=== PATIENT | female | born 1945 | race Caucasian/White ===

== ENCOUNTER 2020-06-09 19:30 | Emergency (ER) | payer MEDICARE, OTHER ==
[~2020-06-09] VITALS: Ht 160 cm; Wt 74.8 kg
--- OUTSIDE RECORDS SUMMARY | ~2020-06-09 | XMS | Encounter Summary ---
Demographics + + + | Address | [address] | | | [place] [address] | + + + | Home Phone | | + + + | Preferred Language | Unknown | + + + | Marital Status | | + + + | Zoroastrianism Affiliation | Unknown | + + + | Race | White | + + + | Ethnic Group | Unknown | + + + Author + + + | Author | [facility] | | | and [place] | + + + | Organization | [facility] | | | and [place] | + + + | Address | Unknown | + + + | Phone | Unavailable | + + + Support + + + + + | Name | Relationship | Address | Phone | + + + + + | Kelly Sexton | ECON | [address] | | | | | [place] | | | | | [address] | | + + + + + | Angeli Burdick | ECON | [address] | | | | | [place] | | | | | [address] | | + + + + + Care Team Providers + +------+ + | Care Material Crew Supervisor Name | Role | Phone | + +------+ + | Sveta Lawrence MD | PCP | | + +------+ + Reason for Visit + + + | Reason | Comments | + + + | Hypothyroidism | | + + + | Hyperglycemia | | + + + | Hypertension | | + + + Encounter Details +--------+---------+ + + + | Date | Type | Department | Care Team | Description | +--------+---------+ + + + | 07/22/ | Office | [facility] | Sveta Lawrence MD | Acquired | | 2017 | Visit | [facility] | [address] | hypothyroidism | | | | [address] | [place] | (Primary Dx); | | | | [place] | [address] | HYPERTENSION, BENIGN | | | | [address] | | ESSENTIAL; | | | | [phone] | | Hyperglycemia; Mixed | | | | | | hyperlipidemia | +--------+---------+ + + + Social History + +-------+ +--------+------+ | Tobacco Use | Types | Packs/Day | Years | Date | | | | | Used | | + +-------+ +--------+------+ | Never Smoker | | | | | + +-------+ +--------+------+ + +---+---+---+ | Smokeless Tobacco: | | | | | Never Used | | | | + +---+---+---+ + + +---------+ + | Alcohol Use | Drinks/Week | oz/Week | Comments | + + +---------+ + | No | | | | + + +---------+ + + + + | Sex Assigned at | Date Recorded | | | | + + + | Not on file | | + + + documented as of this encounter Last Filed Vital Signs + + + + + | Vital Sign | Reading | Time Taken | Comments | + + + + + | Blood Pressure | 110/86 | 07/22/2017 12:41 PM | | | | | PST | | + + + + + | Pulse | 66 | 07/22/2017 12:41 PM | | | | | PST | | + + + + + | Temperature | 36.8 C (98.2 F) | 07/22/2017 12:41 PM | | | | | PST | | + + + + + | Respiratory Rate | 16 | 07/22/2017 12:41 PM | | | | | PST | | + + + + + | Oxygen Saturation | 96% | 07/22/2017 12:41 PM | | | | | PST | | + + + + + | Inhaled Oxygen | - | - | | | Concentration | | | | + + + + + | Weight | 80.7 kg (178 lb) | 07/22/2017 12:41 PM | | | | | PST | | + + + + + | Height | 160 cm (5' 3") | 07/22/2017 12:41 PM | | | | | PST | | + + + + + | Body Mass Index | 31.53 | 07/22/2017 12:41 PM | | | | | PST | | + + + + + documented in this encounter Patient Instructions Patient Instructions Sveta Lawrence MD - 07/22/2017 1:57 PM PST Your Heart is at Risk Plaque and blood clots in the coronary arteries reduce blood flow to the heart: When a coronary artery narrows, less blood and oxygen flow to the heart muscle. The decr eased blood flow can cause symptoms of angina. This is often felt as temporary pain or press ure in or near the chest. This can also feel like pain in the jaw, neck, and shoulder. When a coronary artery narrows too much, very little blood and oxygen reach the heart mu scle beyond the site of narrowing. If a clot forms, blood flow in the artery may stop. This can result in a heart attack. If the muscle goes without oxygen for too long, that part of t he heart muscle dies. Your whole body is at risk Plaque buildup can lead to problems throughout the body. Common sites of artery problems in clude: Brain. Arteries in the brain or leading to the brain can become blocked. When this happe ns, blood flow to that part of the brain is reduced and that part of the brain can t get t he oxygen it needs. That portion of the brain is damaged. This is a stroke. Kidneys. If an artery that carries blood to the kidneys is narrowed, the kidneys have a hard time filtering blood. This can lead to kidney damage. Aorta. This is the body s main artery. It connects directly to the heart. If this efrain ry is damaged, the affected section can weaken and balloon out. This is called an aortic ane urysm. Legs. If arteries in the legs are clogged with plaque, cramping, or aching in the buttoc ks, thighs, or calves can occur when walking. This is called claudication. Date Last Reviewed: 02/06/[id number] [employer]. [address] [place] [address]. All [facility] ts reserved. This information is not intended as a substitute for professional medical care. Always follow your healthcare professional's instructions. documented in this encounter Progress Notes Sveta Lawrence MD - 07/22/2017 1:00 PM PST Patient ID: Charo Cifuentes is a 71 y.o. female. Charo returns to see me to review lab results today. She is alone today. Chief Complaint Patient presents with Hypothyroidism Hyperglycemia Hypertension HPI: Hypothyroidism: I discontinued her Amour thyroid at the last office visit. We checked her TSH. She is here to follow up on her TSH level. She reports that she continued her Amour Thyroid as well as Levothyroxine until she heard other sarah from me. Her TSH is suppressed at 0.143, we are going to discontinue [place] Thyroid and continue lev othyroxine 75 g daily and repeat the TSH in 2 months. Hyperglycemia: She returns for results of her A1C today, which is 6.7 now on diabetic range, she does not want to take medications and will adjust her diet. Her lipid panel is normal but her calculated cardiovascular risk is high at 14.4% and she d oes not want to start statin medication but rather will bring down her A1c to a nondiabetic range through diet and exercise and decreasing cardiovascular risk that way... HTN: She reports that her blood pressure is usually not that high on the "bottom number" She allen s been sick with a URI recently though. Past Medical History: Diagnosis Date Arthritis Cancer (HCC) 1998 Melanoma Cataract 04/2017 Encounter for blood transfusion 1999 Environmental allergies Gastrointestinal ulcer 1999 GERD (gastroesophageal reflux disease) Glaucoma Hyperlipidemia Hypertension Thyroid disease Past Surgical History: Procedure Laterality Date COLONOSCOPY EYE SURGERY GASTRIC BYPASS SURGERY 1985 SHOULDER SURGERY Left 2014 TONSILLECTOMY TUBAL LIGATION UPPER GASTROINTESTINAL ENDOSCOPY Family History Problem Relation Age of Onset COPD Mother Hearing loss Mother Vision loss Mother Arthritis Father Early Father Heart disease Father Asthma Sister Diabetes Sister High blood pressure Sister High cholesterol Sister Miscarriages / stillbirths Sister Vision loss Sister Depression Brother Diabetes Brother Early Brother Hearing loss Brother Heart disease Brother Premature CHD Brother Social History Social History Marital status: Spouse name: N/A Number of children: N/A Years of education: N/A Social History Main Topics Smoking status: Never Smoker Smokeless tobacco: Never Used Alcohol use No Drug use: No Sexual activity: Not Asked Other Topics Concern None Social History Narrative None Allergies Allergen Reactions Codeine Sulfate Not Noted Hydrocodone Not Noted Sulfa Antibiotics Not Noted Intolerance No active intolerances/contraindications Current Outpatient Prescriptions Medication Sig Dispense Refill Brinzolamide-Brimonidine (SIMBRINZA) 1-0.2 % SUSP Apply to eye. Calcium Carbonate-Vitamin D (CALCIUM + D PO) TABS 1200 mg per day levothyroxine (SYNTHROID) 75 MCG tablet Take 1 tablet by mouth Daily. 90 tablet 2 lisinopril (PRINIVIL,ZESTRIL) 2.5 MG tablet Take 1 tablet by mouth Daily. 90 tablet 3 multivitamin (THERAGRAN) per tablet daily NAPROXEN PO TABS Take/use as needed. omeprazole (PRILOSEC) 20 mg capsule Take 1 capsule by mouth Daily. 90 capsule 3 No current facility-administered medications for this visit. Review of Systems Constitutional: Positive for malaise/fatigue. HENT: Negative. Eyes: Negative. Respiratory: Positive for cough and sputum production. Cardiovascular: Negative. Gastrointestinal: Positive for heartburn. On Prilosec Genitourinary: Negative. Musculoskeletal: Positive for joint pain. Sore from yard work. Skin: Negative. Neurological: Negative. Endo/Heme/Allergies: Negative. Psychiatric/Behavioral: Negative. Objective: BP 110/86 | Pulse 66 | Temp 36.8 C (98.2 F) (Temporal) | Resp 16 | Ht 1.6 m (5' 3") | Wt 80.7 kg (178 lb) | SpO2 96% | ? No | BMI 31.53 kg/m Physical Exam General Appearance: Alert, cooperative, no distress, appears stated age Head: Normocephalic, without obvious abnormality, atraumatic Eyes: PERRL, conjunctiva/corneas clear, EOM's intact Nose: Nares normal, septum midline, mucosa normal, no drainage or sinus tenderness Throat: Lips, mucosa, and tongue normal; teeth and gums normal Neck: Supple, symmetrical, no adenopathy Lungs: No accessory muscle use, breath sounds are clear to auscultation bilaterally, no w heezes, crackles or rhonchi Chest Wall: No tenderness or deformity Heart: Regular rate and rhythm, S1, S2 normal, no murmur, rub or gallop Abdomen: Soft, non-tender Extremities: Extremities normal, atraumatic, no cyanosis, clubbing, or edema Pulses: Radial pulses 2+ and symmetric Skin: Warm and dry Lymph nodes: Cervical and supraclavicular nodes normal Neurologic: Gait normal Assessment/Plan: Acquired hypothyroidism (Primary) Assessment & Plan: Discontinue [place] Thyroid and continue levothyroxine 75 g daily, repeat TSH in 2 months Orders: - TSH; Future; Expected date: 10/22/2017 - TSH; Future; Expected date: 01/19/2018 HYPERTENSION, BENIGN ESSENTIAL Assessment & Plan: Continue lisinopril 2.5 mg and increased exercise Orders: - Comprehensive Metabolic Panel; Future; Expected date: 01/19/2018 - Lipid Panel; Future; Expected date: 01/19/2018 - TSH; Future; Expected date: 01/19/2018 - CBC with Differential; Future; Expected date: 01/19/2018 - Hemoglobin A1C; Future; Expected date: 01/19/2018 Hyperglycemia Assessment & Plan: A1c is now 6.7, will improved diet and exercise and try to decrease the cardiovascular risk by getting into a nondiabetic range. Her lipid panel seems normal as her calculated cardiovascular risk is 14.4% elevated and sh e refuses statin medications at this point. Orders: - Hemoglobin A1C; Future; Expected date: 01/19/2018 Other orders - Levothyroxine Sodium; Take 1 tablet by mouth Daily. Dispense: 90 tablet; Refill: 2 The patient was satisfied with the care received and voiced understanding of the issues dis cussed and the plan. Return in about 6 months (around 01/19/2018) for Diabetes follow up with fasting labs before . documented in this enc ounter Miscellaneous Notes Assessment & Plan Note - Sveta Lawrence MD - 07/22/2017 7:38 PM PSTAssociated Problem(s): [id number] is now 6.7, will improved diet and exercise and try to decrease the cardio vascular risk by getting into a nondiabetic range. Her lipid panel seems normal as her calculated cardiovascular risk is 14.4% elevated and sh e refuses statin medications at this point.Electronically signed by Sveta Lawrence MD at 7:39 PM PSTAssessment & Plan Note - Sveta Lawrence MD - 07/22/2017 7:37 PM PSTAss ociated Problem(s): HYPOTHYROIDISMDiscontinue [place] Thyroid and continue levothyroxine 75 g daily, repeat TSH in 2 months 7: 37 PM PSTAssessment & Plan Note - Sveta Lawrence MD - 07/22/2017 7:37 PM PSTAssociated Pro blem(s): HYPERTENSION, BENIGN ESSENTIALContinue lisinopril 2.5 mg and increased exerciseElec tronically signed by Sveta Lawrence MD at 07/22/2017 7:37 PM PSTdocumented in this encounte r Plan of Treatment + +------+--------+ + + | Name | Type | Priori | Associated Diagnoses | Order Schedule | | | | ty | | | + +------+--------+ + + | TSH | Lab | Routin | Acquired | Expected: | | | | e | hypothyroidism | 10/22/2017, Expires: | | | | | | 07/22/2018 | + +------+--------+ + + | Comprehensive | Lab | Routin | HYPERTENSION, | Expected: | | Metabolic Panel | | e | BENIGN ESSENTIAL | 01/19/2018, Expires: | | | | | | 07/22/2018 | + +------+--------+ + + | Lipid Panel | Lab | Routin | HYPERTENSION, | Expected: | | | | e | BENIGN ESSENTIAL | 01/19/2018, Expires: | | | | | Mixed hyperlipidemia | 07/22/2018 | + +------+--------+ + + | TSH | Lab | Routin | Acquired | Expected: | | | | e | hypothyroidism | 01/19/2018, Expires: | | | | | HYPERTENSION, BENIGN | 07/22/2018 | | | | | ESSENTIAL | | + +------+--------+ + + | CBC with | Lab | Routin | HYPERTENSION, | Expected: | | Differential | | e | BENIGN ESSENTIAL | 01/19/2018, Expires: | | | | | | 07/22/2018 | + +------+--------+ + + | Hemoglobin A1C | Lab | Routin | HYPERTENSION, | Expected: | | | | e | BENIGN ESSENTIAL | 01/19/2018, Expires: | | | | | Hyperglycemia | 07/22/2018 | + +------+--------+ + + documented as of this encounter Procedures + +--------+ + + + | Procedure Name | Priori | Date/Time | Associated Diagnosis | Comments | | | ty | | | | + +--------+ + + + | IMAGING REPORT - | | 07/20/2017 | | Results for this | | EXTERNAL SCAN | | 12:00 AM | | procedure are in the | | | | PST | | results section. | + +--------+ + + + | LABS - EXTERNAL SCAN | | 06/26/2017 | | Results for this | | | | 12:00 AM | | procedure are in the | | | | PDT | | results section. | + +--------+ + + + documented in this encounter Results IMAGING REPORT - EXTERNAL SCAN (07/20/2017 12:00 AM PST) + + + | Narrative | Performed At | + + + | Ordered by an | | | unspecified provider. | | + + + LABS - EXTERNAL SCAN (06/26/2017 12:00 AM PDT) + + + | Narrative | Performed At | + + + | Ordered by an | | | unspecified provider. | | + + + documented in this encounter Visit Diagnoses + + | Diagnosis | + + | Acquired hypothyroidism - Primary Unspecified hypothyroidism | + + | HYPERTENSION, BENIGN ESSENTIAL Essential hypertension, benign | + + | Hyperglycemia Other abnormal glucose | + + | Mixed hyperlipidemia | + + documented in this encounter
--- OUTSIDE RECORDS SUMMARY | ~2020-06-09 | XMS | Encounter Summary ---
Demographics + + + | Address | [address] | | | [place] [address] | + + + | Home Phone | | + + + | Preferred Language | Unknown | + + + | Marital Status | | + + + | Amish Affiliation | Unknown | + + + | Race | White | + + + | Ethnic Group | Unknown | + + + Author + + + | Author | [facility] | | | and [place] | + + + | Organization | [facility] | | | and [...] [place] | | | | | [address] | | + + + + + | Angeli Burdick | ECON | [address] | | | | | [place] | | | | | [address] | | + + + + + Care Team Providers + +------+ + | Care Assistant Product Manager Name | Role | Phone | + +------+ + PCP | Unavailable | + +------+ + Encounter Details +--------+ + + + + | Date | Type | Department | Care Team | Description | +--------+ + + + + | 04/08/ | Hospital | [facility] | | | | 2000 | Encounter | [facility] | | | | | | CONV DEPT [address] | | | | | | [place], | | | | | | [place] [address] | | | | | | [phone] | | | +--------+ + + + + Social History + +-------+ +--------+------+ | Tobacco Use | Types | Packs/Day | Years | Date | | | | | Used | | + +-------+ +--------+------+ | Never Assessed | | | | | + +-------+ +--------+------+ + + + | Sex Assigned at | Date Recorded | | | | + + + | Not on file | | + + + documented as of this encounter Plan of Treatment Not on filedocumented as of this encounter Visit Diagnoses Not on filedocumented in this encounter"
--- OUTSIDE RECORDS SUMMARY | ~2020-06-09 | XMS | Clinical Summary ---
Demographics + + + | Address | [address] | | | [place] [address] | + + + | Home Phone | | + + + | Preferred Language | Unknown | + + + | Marital Status | Single | + + + | Quaker Affiliation | Unknown | + + + | Race | Unknown | + + + | Ethnic Group | Not or | + + + Author + + + | Organization | Unknown | + + + | Address | Unknown | + + + | Phone | Unavailable | + + + Support + + +---------+ + | Name | Relationship | Address | Phone | + + +---------+ + | Fahad Lopez | ECON | Unknown | | + + +---------+ + Care Team Providers + +------+ + | Care Wire Preparation Worker Name | Role | Phone | + +------+ + PCP | Unavailable | + +------+ + Source Comments MARCUS is fully live on both [facility] and [facility] Allergies Not on File Medications Not on file Active Problems Not on file Social History + +-------+ +--------+------+ | Tobacco [...] on file | | + + + Last Filed Vital Signs Not on file Plan of Treatment + + +-------+ + | Health Maintenance | Due Date | Last | Comments | | | | Done | | + + +-------+ + | Pneumococcal | | | | | vaccination (1 of 1 | 0 | | | | - PPSV23) | | | | + + +-------+ + | Influenza (Flu) | | | | | vaccination (#1) | 0 | | | + + +-------+ + Results Not on filefrom Last 3 Months"
--- OUTSIDE RECORDS SUMMARY | ~2020-06-09 | XMS | Encounter Summary ---
Demographics + + + | Address | [address] | | | [place] [address] | + + + | Home Phone | | + + + | Preferred Language | Unknown | + + + | Marital Status | | + + + | Muslim Affiliation | Unknown | + + + | Race | White | + + + | Ethnic Group | Unknown | + + + Author + + + | Author | [facility] | | | and [place] | + + + | Organization | [facility] | | | [...] [place] | | | | | [address] | | + + + + + | Angeli Burdick | ECON | [address] | | | | | [place] | | | | | [address] | | + + + + + Care Team Providers + +------+ + | Care Application Systems Administrator Name | Role | Phone | + +------+ + | Sveta Lawrence MD | PCP | | + +------+ + Reason for Visit + +--------+ + | Reason | Onset | Comments | | | Date | | + +--------+ + | Procedure | 10/26/ | colon/ivcs | | | 2017 | | + +--------+ + Encounter Details +--------+ + + + + | Date | Type | Department | Care Team | Description | +--------+ + + + + | 10/26/ | Telephone | [facility] | Kye Rangel | Procedure | | 2017 | | GASTROENTEROLOGY | [place] [address] | (colon/ivcs) | | | | [address] [place] | [address] [facility] | | | | | [address] [place] | [place] [address] | | | | | [address] | [phone] | | | | | [phone] | | | +--------+ + + + [...] + + documented as of this encounter Miscellaneous Notes Telephone Encounter - Babs Dumont RN - 10/26/2017 11:19 AM PSTOrdered bowel prep and created case. Last screening in [address] Menjivar with hx of small polyp.Electro nically signed by Babs Dumont RN at 10/26/2017 11:20 AM PSTTelephone Encounter - Nalini [facility] [employer] - 10/26/2017 10:06 AM PSTScheduled patient for colonoscopy/ i vcs with Dr. Burk on 11/23/2017 with a check in time of 8 am. Reviewed medication stated to pt no NSAID's 3 days prior to procedure ,(if you need to take morning medication such as bl ood pressure medication, with a small sip of water a soon as possible the morning of the pro cedure); surg hx and allergies; reviewed bowel prep depending on insurance Suprep bottle kit starting the day before the first bottle at 4 pm and second bottle at 9 pm. Golytely bottle prep drink all the day before starting at 4pm. Nothing to drink 4 hours prior to appointmen t; rx to [facility]; info mailed to pt; patient verbalized understanding; notes to NAOMY. Hx of small polyps 10 :09 AM PSTdocumented in this encounter Plan of Treatment Not on filedocumented as of this encounter Visit Diagnoses + + | Diagnosis | + + | Hx of colonic polyps - Primary Personal history of colonic polyps | + + documented in this encounter"
--- OUTSIDE RECORDS SUMMARY | ~2020-06-09 | XMS | Clinical Summary ---
Demographics + + + | Address | [address] | | | [place] [address] | + + + | Home Phone | | + + + | Preferred Language | Unknown | + + + | Marital Status | | + + + | Advent Affiliation | Unknown | + + + | Race | White | + + + | Ethnic Group | Unknown | + + + Author + + + | Author | [facility] | | | and [place] | + + + | Organization | [facility] | | | [...] [place] | | | | | [address] | | + + + + + | Angeli Burdick | ECON | [address] | | | | | [place] | | | | | [address] | | + + + + + Care Team Providers + +------+ + | Care Reference And Instruction Librarian Name | Role | Phone | + +------+ + | Sveta Lawrence MD | PCP | | + +------+ + Allergies + + + + + + | Active Allergy | Reactions | Severity | Noted | Comments | | | | | Date | | + + + + + + | Codeine Sulfate | Other (See Comments) | Low | 03/05/20 | Makes me angry, | | | | | 10 | | + + + + + + | Hydrocodone | Other (See Comments) | Low | | Made me angry. | + + + + + + | Sulfa Antibiotics | Shortness Of Breath, | High | 03/05/20 | Had a rash on | | | Rash | | 10 | chest, and | | | | | | difficulty | | | | | | breathing. | + + + + + + Medications + + + +---------+------+------+-------+ | Medication | Sig | Dispensed | Refills | Star | End | Statu | | | | | | t | Date | s | | | | | | Date | | | + + + +---------+------+------+-------+ | NAPROXEN PO | TABS Take/use as | | 0 | 09/1 | | Activ | | | needed. | | | 2/20 | | e | | | | | | 12 | | | + + + +---------+------+------+-------+ | Calcium | TABS 1200 mg per | | 0 | 09/1 | | Activ | | Carbonate-Vitamin D | day | | | 2/20 | | e | | (CALCIUM + D PO) | | | | 12 | | | + + + +---------+------+------+-------+ | multivitamin | daily | | 0 | 09/1 | | Activ | | (THERAGRAN) per | | | | 2/20 | | e | | tablet | | | | 12 | | | + + + +---------+------+------+-------+ | | Apply to eye. | | 0 | | | Activ | | Brinzolamide-Brimoni | | | | | | e | | dine (SIMBRINZA) | | | | | | | | 1-0.2 % SUSP | | | | | | | + + + +---------+------+------+-------+ | Cobalamine | Place under the | | 0 | | | Activ | | Combinations (B-12) | tongue Daily. | | | | | e | | 1000-400 MCG SUBL | | | | | | | + + + +---------+------+------+-------+ | oxybutynin | TAKE 1 TABLET BY | 30 | 2 | 08/07 | | Activ | | (DITROPAN XL) 5 mg | MOUTH ONCE DAILY | tablet | | 8/20 | | e | | 24 hr tablet | | | | 18 | | | + + + +---------+------+------+-------+ | omeprazole | TAKE ONE CAPSULE BY | 90 | 1 | 12/2 | | Activ | | (PRILOSEC) 20 mg | MOUTH ONCE DAILY | capsule | | 1/20 | | e | | capsule | | | | 18 | | | + + + +---------+------+------+-------+ | levothyroxine | TAKE 1 TABLET BY | 90 | 0 | 08/2 | | Activ | | (SYNTHROID) 100 mcg | MOUTH IN THE MORNING | tablet | | 0/20 | | e | | tablet | BEFORE BREAKFAST | | | 19 | | | + + + +---------+------+------+-------+ | omeprazole | TAKE 1 CAPSULE BY | 90 | 3 | 09/1 | | Activ | | (PRILOSEC) 20 mg | MOUTH ONCE DAILY | capsule | | 7/20 | | e | | capsule | | | | 19 | | | + + + +---------+------+------+-------+ | lisinopril | TAKE 1 TABLET BY | 30 | 0 | 10/ | | Activ | | (PRINIVIL,ZESTRIL) | MOUTH ONCE DAILY | tablet | | 10/27 | | e | | 2.5 MG tablet | | | | 19 | | | + + + +---------+------+------+-------+ Active Problems + + + | Problem | Noted Date | + + + | Physician orders for life-sustaining treatment (POLST) form | 01/19/2018 | | indicates patient wish for lz-awj-dprjcpuyavb status | | + + + | Urinary urgency | 01/19/2018 | + + + + + | Last Assessment & Plan: Did not sampler pickup Myrbetriq 25 mg due | | to it being so expensive.We will give you an prescription for | | Oxybutynin 5 mg tablets. If this is too expensive then you do not | | have to pick it up. | + + + + + | Hyperlipidemia | 01/19/2018 | + + + + + | Last Assessment & Plan: Requested fasting lipid panel from | | laboratory in [place] | + + + + + | Hyperglycemia | 06/25/2017 | + + + + + | Last Assessment & Plan: Need A1c to follow-up and she used to | | have an elevated cardiovascular risk of 14.4 in July 2017 | | when need to follow-up on this | + + + + + | Bariatric surgery status | 06/25/2017 | + + + | HYPERTENSION, BENIGN ESSENTIAL | 2010 | + + + + + | Last Assessment & Plan: Well controlled on lisinopril to 2.5 | | mg, low salt diet and exercise | + + + + + | HYPOTHYROIDISM | 2010 | + + + + + | Last Assessment & Plan: We will continue the levothyroxine | | 100 mcg since this seems to be keeping TSH under control.Lab work | | reviewed today.-Thyroid levels are stable. -Plan on yearly TSH | | labs-Continue your current dose of levothyroxine | |-Thyroid levels are stable. | |-Plan on yearly TSH labs | |-Continue your current dose of levothyroxine | + + + + + | G E R D | 2010 | + + + | ANEMIA, IRON DEFICIENCY | | + + + Immunizations + + + + | Name | Administration Dates | Next Due | + + + + | INFLUENZA 64 Y OR >, | 06/25/2017 | | | TRIVALENT HIGH-DOSE | | | + + + + | PNEUMOCOCCAL | 07/30/2015 | | | CONJUGATE 13-VALENT | | | | (PCV13) | | | + + + + | PNEUMOCOCCAL | 06/25/2017 | | | POLYSACCHARIDE | | | | 23-VALENT (PPSV23) | | | + + + + | TDAP, (ADOL/ADULT) | 10/11/2015 | | + + + + | ZOSTER, 1 DOSE | 06/14/2013 | | | (ZOSTAVAX) | | | + + + + Family History + + +------+ + | Medical History | Relation | Name | Comments | + + +------+ + | Depression | Brother | | | + + +------+ + | Diabetes | Brother | | | + + +------+ + | Early | Brother | | | + + +------+ + | Hearing loss | Brother | | | + + +------+ + | Heart disease | Brother | | | + + +------+ + | Premature CHD | Brother | | | + + +------+ + | Arthritis | Father | | | + + +------+ + | Early | Father | | | + + +------+ + | Heart disease | Father | | | + + +------+ + | COPD | Mother | | | + + +------+ + | Hearing loss | Mother | | | + + +------+ + | Vision loss | Mother | | | + + +------+ + | Asthma | Sister | | | + + +------+ + | Diabetes | Sister | | | + + +------+ + | High blood pressure | Sister | | | + + +------+ + | High cholesterol | Sister | | | + + +------+ + | Miscarriages / | Sister | | | | stillbirths | | | | + + +------+ + | Vision loss | Sister | | | + + +------+ + + +------+ + + | Relation | Name | Status | Comments | + +------+ + + | Brother | | | | + +------+ + + | Father | | | | + +------+ + + | Mother | | | | + +------+ + + | Sister | | Alive | | + +------+ + + Social History + +-------+ +--------+------+ [...] + + + Last Filed Vital Signs + + + + + | Vital Sign | Reading | Time Taken | Comments | + + + + + | Blood Pressure | 130/86 | 04/26/2018 3:02 PM | | | | | PDT | | + + + + + | Pulse | 60 | 04/26/2018 3:02 PM | | | | | PDT | | + + + + + | Temperature | 36.5 C (97.7 F) | 04/26/2018 3:02 PM | | | | | PDT | | + + + + + | Respiratory Rate | 18 | 04/26/2018 3:02 PM | | | | | PDT | | + + + + + | Oxygen Saturation | 99% | 04/26/2018 3:02 PM | | | | | PDT | | + + + + + | Inhaled Oxygen | - | - | | | Concentration | | | | + + + + + | Weight | 75.8 kg (167 lb) | 04/26/2018 3:02 PM | | | | | PDT | | + + + + + | Height | 160 cm (5' 3") | 01/19/2018 7:51 AM | | | | | PDT | | + + + + + | Body Mass Index | 29.58 | 01/19/2018 7:51 AM | | | | | PDT | | + + + + + Plan of Treatment + + + + + | Health Maintenance | Due Date | Last | Comments | | | | Done | | + + + + + | Medication | | | | | Management | 5 | | | + + + + + | Vaccine: Zoster (2 | | 06/14/20 | | | of 3) | 3 | 13 | | + + + + + | Adult Annual | | | | | Wellness Visit | 5 | | | + + + + + | Med Mgmt: Cr | | 04/22/20 | | | | 9 | 18, | | | | | 04/22/20 | | | | | 18, | | | | | 06/26/20 | | | | | 17 | | + + + + + | Med Mgmt: K | | 04/22/20 | | | | 9 | 18, | | | | | 04/22/20 | | | | | 18, | | | | | 06/26/20 | | | | | 17 | | + + + + + | Med Mgmt: TSH | | 04/22/20 | | | | 9 | 18, | | | | | 01/19/20 | | | | | 18 | | + + + + + | Breast Cancer | | 07/20/20 | | | Screening | 9 | 17, | | | | | 12/07/19 | | | | | 11 | | + + + + + | Vaccine: Influenza | | 06/25/20 | | | (#1) | 0 | 17 | | + + + + + | Vaccine: | | 10/11/19 | | | Dtap/Tdap/Td (2 - | 6 | 16 | | | Td) | | | | + + + + + | Colorectal Cancer | | 11/24/19 | | | Screening | 8 | 18, | | | (Colonoscopy) | | 11/24/19 | | | | | 18, | | | | | 10/12/19 | | | | | 08 | | + + + + + | Vaccine: | Completed | 06/25/20 | | | Pneumococcal 65+ | | 17, | | | | | 07/30/20 | | | | | 15 | | + + + + + | Hepatitis C | Completed | 04/22/20 | | | Screening | | 18 | | + + + + + Results Not on filefrom Last 3 Months Insurance + +--------+ +--------+ +---------+--------+ | Payer | Benefi | Subscriber | Effect | Phone | Address | Type | | | t Plan | ID | enrico | | | | | | / | | Dates | | | | | | Group | | | | | | + +--------+ +--------+ +---------+--------+ | MEDICARE | MEDICA | [id number] | 01/06/20 | [phone] | | Medica | | | RE | | 16-Pre | 5 | | re | | | PART A | | sent | | | | | | AND B | | | | | | + +--------+ +--------+ +---------+--------+ | [employer] [place] [employer] | MUTUAL | [id number] | 01/06/20 | [phone] | | Indemn | | | AND | | 16-Pre | 0 | | ity | | | [place] | | sent | | | | | | [place] | | | | | | | | MDCR | | | | | | | | SUPPL | | | | | | + +--------+ +--------+ +---------+--------+ + +--------+ +--------+ + + | Guarantor Name | Accoun | Relation to | Date | Phone | Billing Address | | | t Type | Patient | of | | | | | | | | | | + +--------+ +--------+ + + | Charo Cifuentes | Person | Self [birth year] | [address] | | | al/Fam | | 1946 | [phone] | [place] | | | brii | | | 4 (Home) | [phone] | + +--------+ +--------+ + + Advance Directives + + + + + | Type | Date Recorded | Patient | Explanation | | | | Business Loan Processor | | + + + + + | Power of | | | | | Specialty Sales Consultant | | | | + + + + + | Advance | 11/23/2017 8:01 | | | | Directive | AM | | | + + + + +
--- OUTSIDE RECORDS SUMMARY | ~2020-06-09 | XMS | Encounter Summary ---
Demographics + + + | Address | [address] | | | [place] [address] | + + + | Home Phone | | + + + | Preferred Language | Unknown | + + + | Marital Status | | + + + | Hinduism Affiliation | Unknown | + + + | Race | White | + + + | Ethnic Group | Unknown | + + + Author + + + | Author | [facility] | | | and [place] | + + + | Organization | [facility] | | [...] [place] | | | | | [address] | | + + + + + | Angeli Burdick | ECON | [address] | | | | | [place] | | | | | [address] | | + + + + + Care Team Providers + +------+ + | Care Supervisor Shipping Name | Role | Phone | + +------+ + | Sveta Lawrence MD | PCP | | + +------+ + Reason for Visit +--------+--------+ + | Reason | Onset | Comments | | | Date | | +--------+--------+ + | LABS | 04/14/ | Needs labs before OV | | | 2018 | | +--------+--------+ + Encounter Details +--------+ + + + + | Date | Type | Department | Care Team | Description | +--------+ + + + + | 04/14/ | Telephone | [facility] | Sveta Lawrence MD | LABS (Needs labs | | 2017 | | MEDIC[facility] [place] | [address] | before OV) | | | | [address] | [place] | | | | | [place] | [address] | | | | | [address] | | | | | | [phone] | | | +--------+ + + + [...] this encounter Miscellaneous Notes Telephone Encounter - Rose Marie Cortes RN - 04/14/2018 9:30 AM PDTCalled patient an d LVM to get fasting labs done before we see her next week on 04/22/18. Stated that we need the labs done by 04/21/18. Stated to call back with any questions. And stated to let us know if we need to fax the lab s to [facility] in [place] for her as well. If she calls back please fax the lab orders from July and today to [facility] to be comp leted by the patient before her upcoming appt next week. documented in this encounter Plan of Treatment +------+------+--------+ + + | Name | Type | Priori | Associated Diagnoses | Order Schedule | | | | ty | | | +------+------+--------+ + + | TSH | Lab | Routin | Acquired | 1 Occurrences | | | | e | hypothyroidism | starting 04/14/2018 | | | | | | until 04/14/2019 | +------+------+--------+ + + documented as of this encounter Visit Diagnoses + + | Diagnosis | + + | Acquired hypothyroidism - Primary Unspecified hypothyroidism | + + documented in this encounter"
--- OUTSIDE RECORDS SUMMARY | ~2020-06-09 | XMS | Encounter Summary ---
Demographics + + + | Address | [address] | | | [place] [address] | + + + | Home Phone | | + + + | Preferred Language | Unknown | + + + | Marital Status | | + + + | Latter-Day Affiliation | Unknown | + + + | Race | White | + + + | Ethnic Group | Unknown | + + + Author + + + | Author | [facility] | | | and [place] | + + + | Organization | [facility] | | | [...] [place] | | | | | [address] | | + + + + + | Angeli Burdick | ECON | [address] | | | | | [place] | | | | | [address] | | + + + + + Care Team Providers + +------+ + | Care Dynamics Ax Technical Architect Name | Role | Phone | + +------+ + PCP | Unavailable | + +------+ + Encounter Details +--------+ + + + + | Date | Type | Department | Care Team | Description | +--------+ + + + + | 07/20/ | Hospital | [facility] | | | | 2006 | Encounter | [facility] | | | | | | [address] | | | | | | [place] | | | | | | [address] | | | | | | [phone] | | | +--------+ + + + [...]
--- OUTSIDE RECORDS SUMMARY | ~2020-06-09 | XMS | Encounter Summary ---
Demographics + + + | Address | [address] | | | [place] [address] | + + + | Home Phone | | + + + | Preferred Language | Unknown | + + + | Marital Status | | + + + | Voodoo Affiliation | Unknown | + + + | Race | White | + + + | Ethnic Group | Unknown | + + + Author + + + | Author | [facility] | | | and [place] | + + + | Organization | [facility] | | | [...] [place] | | | | | [address] | | + + + + + | Angeli Burdick | ECON | [address] | | | | | [place] | | | | | [address] | | + + + + + Care Team Providers + +------+ + | Care Tea Room Manager Name | Role | Phone | + +------+ + | Sveta Lawrence MD | PCP | | + +------+ + Reason for Visit + + + | Reason | Comments | + + + | Medication Refill | | + + + Encounter Details +--------+--------+ + + + | Date | Type | Department | Care Team | Description | +--------+--------+ + + + | 08/27/ | Refill | [facility] | Sveta Lawrence MD | Medication Refill | | 2018 | | MEDIC[facility] [place] | [address] | | | | | [address] | [place] | | | | | [place] | [address] | | | | | [address] | | | | | | [phone] | | | +--------+--------+ + + + Social History + +-------+ [...]
--- OUTSIDE RECORDS SUMMARY | ~2020-06-09 | XMS | Encounter Summary ---
Demographics + + + | Address | [address] | | | [place] [address] | + + + | Home Phone | | + + + | Preferred Language | Unknown | + + + | Marital Status | | + + + | Jehovah'S Witness Affiliation | Unknown | + + + | Race | White | + + + | Ethnic Group | Unknown | + + + Author + + + | Author | [facility] | | | and [place] | + + + | Organization | [facility] | | [...] [place] | | | | | [address] | | + + + + + | Angeli Burdick | ECON | [address] | | | | | [place] | | | | | [address] | | + + + + + Care Team Providers + +------+ + | Care Mop Maker Name | Role | Phone | + [...] Description | +--------+--------+ + + + | 04/26/ | Refill | [facility] | Sveta Lawrence MD | Medication Refill | | 2019 | | [facility]IC[facility] [place] | [address] | | | | | [address] | [place] | | | | | [place] | [address] | | | | | [address] | | | | | | [phone] | | | +--------+--------+ + + + [...]
--- OUTSIDE RECORDS SUMMARY | ~2020-06-09 | XMS | Encounter Summary ---
Demographics + + + | Address | [address] | | | [place] [address] | + + + | Home Phone | | + + + | Preferred Language | Unknown | + + + | Marital Status | | + + + | Mormonism Affiliation | Unknown | + + + | Race | White | + + + | Ethnic Group | Unknown | + + + Author + + + | Author | [facility] | | | and [place] | + + + | Organization | [facility] | | | and [...] [place] | | | | | [address] | | + + + + + | Angeli Burdick | ECON | [address] | | | | | [place] | | | | | [address] | | + + + + + Care Team Providers + +------+ + | Care Phone Operator Name | Role | Phone | + +------+ + | Sveta Lawrence MD | PCP | | + +------+ + Reason for Visit + + + | Reason | Comments | + + + | Diabetes | | + + + | Hypertension | | + + + | Thyroid Problem | | + + + Encounter Details +--------+---------+ + + + | Date | Type | Department | Care Team | Description | +--------+---------+ + + + | 01/19/ | Office | [facility] | Sveta Lawrence MD | Acquired | | 2018 | Visit | [facility] [place] | [address] | hypothyroidism | | | | [address] | [place] | (Primary Dx); | | | | [place] | [address] | HYPERTENSION, BENIGN | | | | [address] | | ESSENTIAL; | | | | [phone] | | Hyperglycemia; Need | | | | | | for hepatitis C | | | | | | screening test; | | | | | | Physician orders for | | | | | | life-sustaining | | | | | | treatment (POLST) | | | | | | form indicates | | | | | | patient wish for | | | | | | [id number] | | | | | | status; Urinary | | | | | | urgency; Mixed | | | | | | [...] + + + | Blood Pressure | 134/70 | 01/19/2018 7:51 AM | | | | | PDT | | + + + + + | Pulse | 63 | 01/19/2018 7:51 AM | | | | | PDT | | + + + + + | Temperature | 36.6 C (97.8 F) | 01/19/2018 7:51 AM | | | | | PDT | | + + + + + | Respiratory Rate | 20 | 01/19/2018 7:51 AM | | | | | PDT | | + + + + + | Oxygen Saturation | 99% | 01/19/2018 7:51 AM | | | | | PDT | | + + + + + | Inhaled Oxygen | - | - | | | Concentration | | | | + + + + + | Weight | 81.3 kg (179 lb 3.2 | 01/19/2018 7:51 AM | | | | oz) | PDT | | + + + + + | Height | 160 cm (5' 3") | 01/19/2018 7:51 AM | | | | | PDT | | + + + + + | Body Mass Index | 31.74 | 01/19/2018 7:51 AM | | | | | PDT | | + + + + + documented in this encounter Patient Instructions Patient Instructions Sveta Lawrence MD - 01/19/2018 8:24 AM PDTFormatting of this note mi ght be different from the original. Follow up in 3 months for thyroid. We are faxing fasting labs to [facility] today to have completed at your earliest convenienc e. We are giving you, in hand, the TSH order to complete in three months. Overactive Bladder Syndrome (OAB) Normally, urine stays in the bladder until a person decides to release it. With OAB, the bl adder muscles contract involuntarily, causing a sudden urge to urinate and even urine leakag e. When the bladder muscle contract or squeeze involuntarily, it is called overactive bladder syndrome. This causes an intense urge to urinate, known as urgency. Urgency can occur many t imes during the day and night. If urine leaks with the urgency, it is called urge incontinen ce. A disease that affects the bladder nerves, such as multiple sclerosis, can cause overactive bladder syndrome. Other conditions, such as urinary tract infection (UTI) or prostate probl ems in men, can also lead to OAB. But the exact cause is often not known. How is overactive bladder syndrome diagnosed? Your healthcare provider will examine you and ask about your symptoms and health history. Y ou may also have one or more of the following: Urine testto take samples of urine and have them checked for problems. Urinary diaryto record how much fluid you take in and urinate out in a3 day period. Bladder ultrasoundto study the bladder as it empties. Ultrasound uses sound waves to c reate detailed images of the inside of the body. Cystoscopyto allow the healthcare provider to look for problems in the urinary tract. The test uses a thin, flexible scope called a cystoscope with a light and camera on the end. The scope is inserted into the urethra (the tube that carries urine out of the body). Urodynamic studies, a battery of tests designed to measure and record many aspects of ur inary bladder function, including pressures, volume, and urine flow. How is overactive bladder syndrome treated? Treatment depends on the cause and severity of your OAB. Treatments may include the followi ng: Changing urination habitsmay be suggested. For instance, your healthcare provider may suggest that you urinate as soon as you feel the urge. You may also need to limit how much f luid you have during the day. Exercising your pelvic musclescan help strengthen muscles used during urination. These exercises are called Kegels. They involve simone as if you were stopping your urine st ream and tightening your rectum as if trying not to pass gas. Your healthcare provider can h elp you learn how to do Kegels. Biofeedbackto help you learn to control the movement of your bladder muscles. Sensors are placed on your abdomen. They turn signals given off by your muscles into lines on a comp uter screen. Medicine may be given to relax the bladder muscle. Medicine can also help ease bladder c ontractions, which reduces the urge to urinate. Neuromodulationmay be done if medicine and behavioral changes don t work. Electrical pulses are sent to the sacral nerves (nerves that affect the pelvic area). These pulses hel p relieve OAB and urge incontinence. Surgeryto make the bladder larger may be done in severe cases. With treatment, OAB can be managed. A condition, such as UTI, that has caused you to have O AB will be treated. Treatment may involve taking medicine for months or years. You may also need to make changes in your daily routine. This may include going to the bathroom more ofte n than you think you need to. Or, you may need to cut back on caffeine and alcohol because t hese can make symptoms worse. Your healthcare provider can tell you more. When to call your healthcare provider Call the healthcare provider right away if you have any of the following: Fever of100.4F(38.0 C) or higher No improvement with treatment Trouble urinating because of pain Back or abdominal pain Date Last Reviewed: 09/07/201619992155-4068 [employer]. [address] [place] [address]. All righ ts reserved. This information is not intended as a substitute for professional medical care. Always follow your healthcare professional's instructions. documented in this encounter Progress Notes Sveta Lawrence MD - 01/19/2018 7:45 AM PDT Subjective: Patient ID: Charo Cifuentes is a 72 y.o. female. Chief Complaint Patient presents with Diabetes Hypertension Thyroid Problem HPI Diabetes Management: Patient presents today for her diabetic follow up. She is a never tobacco user. She does have lab work at [facility] in [place], and we did not receive results, except TS H. Medication management below; Patient is not on any medication at this time, she is currently controlling it with diet an d exercise. Her last diabetic eye exam was completed 2017. She is due for another exam 2018. She will have open angle glaucoma surgery in [facility] [place], scheduled ar ound first week in February. Physician at [facility] completes her diabetic eye exams. Home FBG testing: no. How many times a day? Does not check The patient is not for a dental cleaning. Today she reports feeling well over-all. Hypoglycemic symptoms: Denies sweats, nausea, confusion, and weakness. Hyperglycemic symptoms: Denies polyuria, polydipsia, and blurred vision. No infections, ulcerations, or sores. Following her diabetic diet and understands dietary principles. Exercises not at this time, patient does walk. Body mass index is 31.74 kg/m. Wt Readings from Last 3 Encounters: 01/19/18 81.3 kg (179 lb 3.2 oz) 11/23/17 78.7 kg (173 lb 8 oz) 07/22/17 80.7 kg (178 lb) BP: 134/70 The patients last A1C is pending. Lab Results Component Value Date HBA1C 6.7 06/26/2017 No results found for: CHOL No results found for: HDL No results found for: LDL No results found for: LDLDIRECT No results found for: TRIG No results found for: CHOLHDL No results found for: TSH CMP-WNL except elevated glucose of No results found for: GLU Albumin/ Creatinine ratio- No results found for: MALBCRERATIO Hypertension: Control and Compliance Medication compliance: good Home Blood Pressures: no Exercise: patient is walking about 3 days a week BP: 134/70 BP Readings from Last 3 Encounters: 01/19/18 134/70 11/23/17 112/75 07/22/17 110/86 Pt denies: No headache, visual symptoms, neurologic problems, syncope No chest pain, palpitations, [place], orthopnea, PND, peripheral edema No side effects from any antihypertensive medications Current antihypertensive medications Disp Refills Start End lisinopril (PRINIVIL,ZESTRIL) 2.5 MG tablet (Taking) 90 tablet 3 06/25/2017 Sig - Route: Take 1 tablet by mouth Daily. - Oral Hypothyroidism Pt has hypothyroidism. Taking medications regularly. Pt denies intolerance to temp, tremo r, skin or hair changes, and proximal muscle weakness. Compliance with taking medication is good. Denies side effects. Levothyroxine 88mcg; her TSH is 4.93; will adjust her levothyroxine to 100 g today and re peat test and follow-up in 3 months C/O urinary symptoms: Patient reports she is feeling very healthy and well except having urinary urgency, no stre ss incontinence but just a feeling of having to urinate urgently or else she may wet herself Past Medical History: Diagnosis Date Arthritis Cancer (HCC) 1998 Melanoma Cataract 04/2017 Encounter for blood transfusion 1999 Environmental allergies Gastrointestinal ulcer 1999 GERD (gastroesophageal reflux disease) Glaucoma Hyperlipidemia Hypertension Thyroid disease Past Surgical History: Procedure Laterality Date COLONOSCOPY N/A 11/23/2017 Procedure: COLONOSCOPY; Surgeon: Kye Rangel MD; Location: [facility] UNIT EYE SURGERY GASTRIC BYPASS SURGERY 1985 SHOULDER [...] Social History Narrative None Allergies Allergen Reactions Sulfa Antibiotics Shortness Of Breath,Rash Had a rash on chest, and difficulty breathing. Intolerance Allergen Reactions Codeine Sulfate Other (See Comments) Makes me angry, Hydrocodone Other (See Comments) Made me angry. Current Outpatient Prescriptions Medication Sig Dispense Refill Brinzolamide-Brimonidine (SIMBRINZA) 1-0.2 % SUSP Apply to eye. Calcium Carbonate-Vitamin D (CALCIUM + D PO) TABS 1200 mg per day Cobalamine Combinations (B-12) 1000-[address] under the tongue Daily. levothyroxine (SYNTHROID) 100 mcg tablet Take 1 tablet by mouth every morning (before b reakfast). 90 tablet 0 lisinopril (PRINIVIL,ZESTRIL) 2.5 MG tablet Take 1 tablet by mouth Daily. 90 tablet 3 mirabegron (MYRBETRIQ) 25 mg ER tablet Take 1 tablet by mouth Daily. 30 tablet 5 multivitamin (THERAGRAN) per tablet daily NAPROXEN PO TABS Take/use as needed. omeprazole (PRILOSEC) 20 mg capsule Take 1 capsule by mouth Daily. 90 capsule 3 No current facility-administered medications for this visit. Review of Systems Constitutional: Negative. Negative for fever and malaise/fatigue. HENT: Negative. Negative for congestion, sore throat and tinnitus. Eyes: Negative. Negative for blurred vision and pain. Respiratory: Negative. Negative for cough and shortness of breath. Cardiovascular: Negative. Negative for chest pain, palpitations and leg swelling. Gastrointestinal: Positive for heartburn. Negative for abdominal pain, constipation, diarrh ea, nausea and vomiting. Genitourinary: Negative. Negative for dysuria. Musculoskeletal: Negative. Negative for back pain, joint pain and myalgias. Skin: Negative. Negative for rash. Neurological: Negative. Negative for dizziness, tingling, weakness and headaches. Psychiatric/Behavioral: Negative. Negative for depression. The patient is not nervous/anxi ous and does not have insomnia. Objective: BP 134/70 | Pulse 63 | Temp 36.6 C (97.8 F) (Temporal) | Resp 20 | Ht 1.6 m (5' 3") | Wt 81.3 kg (179 lb 3.2 oz) | SpO2 99% | ? No | BMI 31.74 kg/m Physical Exam General Appearance: Alert, cooperative, [...] supraclavicular nodes normal Neurologic: Gait normal Assessment/Plan: 1. Acquired hypothyroidism (Primary) Assessment & Plan: Increase levothyroxine 100 g and received and follow-up testing in 3 months TSH 2. HYPERTENSION, BENIGN ESSENTIAL Assessment & Plan: Well controlled on lisinopril to 2.5 mg, low salt diet and exercise 3. Hyperglycemia Assessment & Plan: Need A1c to follow-up and she used to have an elevated cardiovascular risk of 14.4 in 2016 when need to follow-up on this 4. Need for hepatitis C screening test - Hepatitis C Ab; Future 5. Physician orders for life-sustaining treatment (POLST) form indicates patient wish for d c-vvo-[id number] status 6. Urinary urgency Assessment & Plan: Discussed treatment options and elected Myrbertriq, 25 mg daily, discussed the fact that po tential side effects, she will let me know if any problems 7. Mixed hyperlipidemia Assessment & Plan: Requested fasting lipid panel from laboratory in [place] Other orders - Mirabegron ER; Take 1 tablet by mouth Daily. Dispense: 30 tablet; Refill: 5 - Levothyroxine Sodium; Take 1 tablet by mouth every morning (before breakfast). Dispe nse: 90 tablet; Refill: 0 The patient was satisfied with the care received and voiced understanding of the issues dis cussed and the plan. Return in about 3 months (around 04/21/2018) for Thyroid follow up. documented in this enc ounter Miscellaneous Notes Assessment & Plan Note - Sveta Lawrence MD - 01/19/2018 8:34 AM PDTAssociated Problem(s): HyperglycemiaNeed A1c to follow-up and she used to have an elevated cardiovascular risk of 14.4 in July 2017 when need to follow-up on this ssessment & Plan Note - Sveta Lawrence MD - 01/19/2018 8:33 AM PDTAssociated Problem(s): HyperlipidemiaRequest[facility] cand[facility] Note - Sveta Lawrence MD - 01/19/2018 8:33 AM PDTAssociated Problem(s): HYPERTENSION, BENIGN ESSENTIALWell controlled on lisinopril to 2.5 mg, low salt diet and exerciseElectroni bridgett signed by Sveta Lawrence MD at 01/19/2018 8:33 AM PDTAssessment & Plan [place] - Sveta Lawrence MD - 01/19/2018 8:32 AM PDTAssociated Problem(s): HYPOTHYROIDISMIncrease levothyro xine 100 g and received and follow-up testing in 3 months TSH ssessment & Plan Note - Sveta Lawrence MD - 2017 8:31 AM PDTAssociated Problem(s): Urinary urgencyDiscussed treatment options and elect ed Myrbertriq, 25 mg daily, discussed the fact that potential side effects, she will let me know if any problems doc umented in this encounter Plan of Treatment + +------+--------+ + + | Name | Type | Priori | Associated Diagnoses | Order Schedule | | | | ty | | | + +------+--------+ + + | Hepatitis C Ab | Lab | Routin | Need for hepatitis | 1 Occurrences | | | | e | C screening test | starting 01/11/2018 | | | | | | until 01/11/2019 | + +------+--------+ + + documented as of this encounter Visit Diagnoses + + | Diagnosis | + + | Acquired hypothyroidism - Primary Unspecified hypothyroidism | + + | HYPERTENSION, BENIGN ESSENTIAL Essential hypertension, benign | + + | Hyperglycemia Other abnormal glucose | + + | Need for hepatitis C screening test Special screening examination for other specified | | viral diseases | + + | Physician orders for life-sustaining treatment (POLST) form indicates patient wish for | | ay-hor-[id number] status | + + | Urinary urgency Urgency of urination | + + | Mixed hyperlipidemia | + + documented in this encounter
--- OUTSIDE RECORDS SUMMARY | ~2020-06-09 | XMS | Encounter Summary ---
Demographics + + + | Address | [address] | | | [place] [address] | + + + | Home Phone | | + + + | Preferred Language | Unknown | + + + | Marital Status | Single | + + + | Latter-Day Affiliation | Unknown | + + + | Race | Unknown | + + + | Ethnic Group | Not or | + + + Author + + + | Author | [facility] | + + + | Organization | [facility] | + + + | Address | Unknown | + + + | Phone | Unavailable | + + + Support + + +---------+ + | Name | Relationship | Address | Phone | + + +---------+ + | Fahad Lopez | ECON | Unknown | | + + +---------+ + Care Team Providers + +------+ + | Care Air Pollution Engineer Name | Role | Phone | + +------+ + PCP | Unavailable | + +------+ + Encounter Details +--------+ + + + + | Date | Type | Department | Care Team | Description | +--------+ + + + + | 01/10/ | Results | Registration [address] | | | | 1996 | Only | [address] | | | | | | [address] Mailcode: [id number] | | | | | | [place], [place] | | | | | | [address] | | | | | | [phone] | | | +--------+ + + + [...] Not on filedocumented as of this encounter Procedures + +--------+ + + + | Procedure Name | Priori | Date/Time | Associated Diagnosis | Comments | | | ty | | | | + +--------+ + + + | CHEMISTRY TESTS 4 | Routin | 01/10/1997 | | Results for this | | | e | 11:00 AM | | procedure are in the | | | | PDT | | results section. | + +--------+ + + + documented in this encounter Results CHEMISTRY TESTS 4 (01/10/1997 11:00 AM PDT) + + + + + + | Component | Value | Ref Range | Performed | Pathologist | | | | | At | Signature | + + + + + + | AST(SGOT) | 19. | U/L | | | + + + + + + | ALT (SGPT) | 13. | U/L | | | + + + + + + | ALK PHOS | 44. | U/L | | | + + + + + + | LD TOTAL, | 173. | U/L | | | | PLASMA | | | | | + + + + + + + + | Specimen | + + | | + + + + + + + | Performing | Address | City/State/Zipcode | Phone Number | | Organization | | | | + + + + + | [facility] | [address] | [place] [address] | | | PATHOLOGY | [address] | | | + + + + + documented in this encounter Visit Diagnoses Not on filedocumented in this encounter"
--- OUTSIDE RECORDS SUMMARY | ~2020-06-09 | XMS | Encounter Summary ---
Demographics + + + | Address | [address] | | | [place] [address] | + + + | Home Phone | | + + + | Preferred Language | Unknown | + + + | Marital Status | | + + + | Denominational Affiliation | Unknown | + + + | Race | White | + + + | Ethnic Group | Unknown | + + + Author + + + | Author | [facility] | | | and [place] | + + + | Organization | [facility] | | [...] [place] | | | | | [address] | | + + + + + | Angeli Burdick | ECON | [address] | | | | | [place] | | | | | [address] | | + + + + + Care Team Providers + +------+ + | Care Commercial Housekeeper Name | Role | Phone | + +------+ + PCP | Unavailable | + +------+ + Encounter Details +--------+ + + + + | Date | Type | Department | Care Team | Description | +--------+ + + + + | 07/11/ | Hospital | [facility] | | | | 1998 | Encounter | [facility] | | | | | | CONV DEPT [address] | | | | | | [place], | | | | | | [place] [address] | | | | | | [phone] | | | +--------+ + + + [...]
--- OUTSIDE RECORDS SUMMARY | ~2020-06-09 | XMS | Encounter Summary ---
Demographics + + + | Address | [address] | | | [place] [address] | + + + | Home Phone [...] [place] | | | | | [address] | | + + + + + | Angeli Burdick | ECON | [address] | | | | | [place] | | | | | [address] | | + + + + + Care Team Providers + +------+ + | Care Travel Trailer Components Assembler Name | Role | Phone | + +------+ + PCP | Unavailable | + +------+ + Encounter Details +--------+ + + + + | Date | Type | Department | Care Team | Description | +--------+ + + + + | 03/12/ | Hospital | [facility] | | | | 2008 | Encounter | [facility] LAB[facility] | | | | | | [address] | | | | | | [place] | | | | | | [address] | | | | | | [phone] | | | +--------+ + + + [...]
--- OUTSIDE RECORDS SUMMARY | ~2020-06-09 | XMS | Encounter Summary ---
Demographics + + + | Address | [address] | | | [place] [address] | + + + | Home Phone | | + + + | Preferred Language | Unknown | + + + | Marital Status | | + + + | Temple Affiliation | Unknown | + + + | Race | White | + + + | Ethnic Group | Unknown | + + + Author + + + | Author | [facility] | | | and [place] | + + + | Organization | [facility] | | | [...] [place] | | | | | [address] | | + + + + + | Angeli Burdick | ECON | [address] | | | | | [place] | | | | | [address] | | + + + + + Care Team Providers + +------+ + | Care Manager Contact Name | Role | Phone | + +------+ + | Sveta Lawrence MD | PCP | | + +------+ + Encounter Details +--------+ + + + + | Date | Type | Department | Care Team | Description | +--------+ + + + + | 01/11/ | Documentati | [facility] | Deb Ramirez, | | | 2019 | on | [facility] | PharmD [address] | | | | | [address] | [facility] | | | | | [address] | [place] [address] | | | | | [place] [address] | [phone] | | | | | [phone] | | | +--------+ + + + [...] + + documented as of this encounter Progress Notes Deb Ramirez PharmD - 01/12/2020 5:31 PM PDTThis patient was selected by [facility] for baseline data for 2020 Hypertension project. Patient chart reviewed for basic demographics. All included data will be de-identified and used for proportion of patients with comorbid conditions. The ASCVD Risk score (Jason ALLEN Jr., et al., 2013) failed to calculate for the following reas ons: The systolic blood pressure is missing documented in t his encounter Plan of Treatment Not on filedocumented as of this encounter Visit Diagnoses Not on filedocumented in this encounter"
--- OUTSIDE RECORDS SUMMARY | ~2020-06-09 | XMS | Encounter Summary ---
Demographics + + + | Address | [address] | | | [place] [address] | + + + | Home Phone | | + + + | Preferred Language | Unknown | + + + | Marital Status | | + + + | Shinto Affiliation | Unknown | + + + | Race | White | + + + | Ethnic Group | Unknown | + + + Author + + + | Author | [facility] | | | and [place] | + + + | Organization | [facility] | | | and [...] [place] | | | | | [address] | | + + + + + | Angeli Burdick | ECON | [address] | | | | | [place] | | | | | [address] | | + + + + + Care Team Providers + +------+ + | Care Labor Relations Consultant Name | Role | Phone | + +------+ + | Sveta Lawrence MD | PCP | | + +------+ + Encounter Details +--------+ + + + + | Date | Type | Department | Care Team | Description | +--------+ + + + + | 04/08/ | Abstract | [facility] | Sveta Lawrence MD | | | 2018 | | [facility] [place] | [address] | | | | | [address] | [place] | | | | | [place] | [address] | | | | | [address] | | | | | | [phone] | | | +--------+ + + + [...] | + +--------+ + + + | DEXA BONE DENSITY | Routin | 02/12/2017 | | Results for this | | STUDY MIRTA SOTELO | e | | | procedure are in the | | ASSESSMENT | | | | results section. | + +--------+ + + + documented in this encounter Results DEXA Bone Density mirta Sotelo Assmt (02/12/2017) + +-------+ + + + | Component | Value | Ref Range | Performed | Pathologist | | | | | At | Signature | + +-------+ + + + | EXT LOWEST | -1.5 | | | | | T-SCORE | | | | | + +-------+ + + + documented in this encounter Visit Diagnoses Not on filedocumented in this encounter"
--- OUTSIDE RECORDS SUMMARY | ~2020-06-09 | XMS | Encounter Summary ---
Demographics + + + | Address | [address] | | | [place] [address] | + + + | Home Phone | | + + + | Preferred Language | Unknown | + + + | Marital Status | Single | + + + | Christianity Affiliation | Unknown | + + + | Race | Unknown | + + + | Ethnic Group | Not or | + + + Author + + + | Author | [facility] | + + + | Organization | [facility] | + + + | Address | Unknown | + + + | Phone | Unavailable | + + + Support + + +---------+ + | Name | Relationship | Address | Phone | + + +---------+ + | Fahad Lopez | ECON | Unknown | | + + +---------+ + Care Team Providers + +------+ + | Care Space Controller Name | Role | Phone | + +------+ + PCP | Unavailable | + +------+ + Encounter Details +--------+ + + + + | Date | Type | Department | Care Team | Description | +--------+ + + + + | 02/02/ | Procedure - | [facility] | Record, Operation | Operative Report | | 1996 | | [place] [address] [id number] | | | | | Transcribed | [facility] | | | | | | for Health and | | | | | | Healing, [address] | | | | | | [place], [place] | | | | | | [address] | | | | | | [phone] | | | +--------+ + + + [...] + + documented as of this encounter Procedure Notes Record, Operation - 02/02/1997 12:00 AM PDTAssociated Order(s): OPERATION RECORD [place] [address], [place] [address] [facility] OPERATION RECORD Med Rec No.: [id number] Date: 02/02/97 Name: Charo Cifuentes ATTENDING SURGEON: Sammy Boggs M.D. Geospatial Technologist, Facial Plastic and Reconstructive Surgery Department of Otolaryngology Head and Neck gear technician(S): Dada Dykes M.D. Instructor, Facial Plastic and Reconstructive Surgery Department of Otolaryngology, Head and Neck Surgery PREOPERATIVE DIAGNOSIS(ES): Left facial defect, status post Mohs resection of melanoma. POSTOPERATIVE DIAGNOSIS(ES): Same. OPERATION(S) PERFORMED: Reconstruction of left facial defect with a rhombic flap. SPECIMEN(S) REMOVED: None. ANESTHESIA: General endotracheal anesthetic. INDICATIONS: The patient is a 51-year-old woman two weeks status post Mohs resection of melanoma in two states. The patient has been waiting for this long to confirm the histological clearance of margins. FINDINGS: This was a 7 by 4 cm defect overlying the left melolabial fold and extending mostly onto the cheek. This was placed approximately 1 cm below the orbital rim. PROCEDURE: After the induction of general endotracheal anesthetic, the patient received 1 gm of Ancef and 10 mg of Decadron. The rhombic flap was planned out based inferiorly. The skin was injected subcutaneously with a solution of 1/2% Lidocaine and 1/4% Marcaine and 1:100,000 Epinephrine. The edges of the defect were incised to freshen them up and to create beveled cuts. The granulation tissue and the overlying scar was removed which created a slightly larger defect as the contractile forces were released. The rhombic flap was incised basing it inferiorly. A wide undermining was done all the way to the preauricular crease and down to the neck to the first cervical rhytids. The undermining was done just above the platysmal fascia in the neck. The rhombic flap was transposed into the defect and secured with 4-0 PDS dermal sutures and 6-0 fast-absorbing gut running locking sutures. At the inferior melolabial crease, a standing cone was resected. The patient was dressed with Dacron batting, two rolls of Kerlix, and a roll of Coban for compression. Unipolar cautery was used throughout the procedure for hemostasis. After the patient was extubated and transferred to the Post Anesthesia Care Unit, her facial nerve was intact in all branches. ADDENDUM: Kenalog solution of 20 mg/ml was injected into the bed of the cheek wound after closure. A total of 0.5 cc of solution was injected. Dr. Boggs performed all the duckworth portions of the procedure. Dada Dykes M.D. Instructor, Facial Plastic and Reconstructive Surgery Department of Otolaryngology, Head and Neck Surgery Sammy Boggs M.D. Geospatial Technologist, Facial Plastic and Reconstructive Surgery Department of Otolaryngology Head and Neck Surgery SIA vila A A: 02/06/97 SM:shadi C: 03/01/97 ai cc: Wilmer Rubalcava M.D. Professor and Applications Systems Analyst, Dermatology Director, Cutaneous Surgery documented in this encou nter Plan of Treatment Not on filedocumented as of this encounter Procedures + +--------+ + + + | Procedure Name | Priori | Date/Time | Associated Diagnosis | Comments | | | ty | | | | + +--------+ + + + | OPERATION RECORD | | 02/02/1997 | | Results for this | | | | 12:00 AM | | procedure are in the | | | | PDT | | results section. | + +--------+ + + + documented in this encounter Results OPERATION RECORD (02/02/1997 12:00 AM PDT) + + | Procedure Note | + + | 02/02/1997 12:00 AM [facility] | | [facility] | | [address] [place] [id number] | | [facility] | | | | OPERATION RECORD | | | | Med Rec No.: [id number] Date: 02/02/97 | | | | Name: Charo Cifuentes | | | | | | ATTENDING SURGEON: Sammy Boggs M.D. | | Geospatial Technologist, | | Facial Plastic and Reconstructive Surgery | | Department of Otolaryngology | | Head and Neck Surgery | | | | SHAPER SETTER(S): Dada Dykes M.D. | | Instructor, Facial Plastic and | | Reconstructive Surgery | | Department of Otolaryngology, | | Head and Neck Surgery | | | | PREOPERATIVE DIAGNOSIS(ES): Left facial defect, status post Mohs | | resection of melanoma. | | POSTOPERATIVE DIAGNOSIS(ES): Same. | | | | OPERATION(S) PERFORMED: Reconstruction of left facial defect with a | | rhombic flap. | | | | SPECIMEN(S) REMOVED: None. | | | | ANESTHESIA: General endotracheal anesthetic. | | | | INDICATIONS: The patient is a 51-year-old woman two weeks | | status post Mohs resection of melanoma in | | two states. The patient has | | been waiting for this long to confirm the histological clearance of margins. | | | | FINDINGS: This was a 7 by 4 cm defect overlying the | | left melolabial fold and extending mostly | | onto the cheek. This was placed | | approximately 1 cm below the orbital rim. | | | | PROCEDURE: After the induction of general endotracheal | | anesthetic, the patient received 1 gm of | | Ancef and 10 mg of Decadron. | | The rhombic flap was planned out based inferiorly. The skin was injected | | subcutaneously with a solution of 1/2% Lidocaine and 1/4% Marcaine and | | 1:100,000 Epinephrine. | | | | The edges of the defect were incised to freshen them up and to create | | beveled cuts. The granulation tissue and the overlying scar was removed | | which created a slightly larger defect as the contractile forces were | | | | | | | | | | released. The rhombic flap was incised basing it inferiorly. A wide | | undermining was done all the way to the preauricular crease and down to the | | neck to the first cervical rhytids. The undermining was done just above the | | platysmal fascia in the neck. The rhombic flap was transposed into the | | defect and secured with 4-0 PDS dermal sutures and 6-0 fast-absorbing gut | | running locking sutures. At the inferior melolabial crease, a standing cone | | was resected. The patient was dressed with Dacron batting, two rolls of | | Kerlix, and a roll of Coban for compression. Unipolar cautery was used | | throughout the procedure for hemostasis. | | | | After the patient was extubated and transferred to the Post Anesthesia Care | | Unit, her facial nerve was intact in all branches. | | | | ADDENDUM: Kenalog solution of 20 mg/ml was injected into the bed of the | | cheek wound after closure. A total of 0.5 cc of solution was injected. | | [place] performed all the udckworth portions of the procedure. | | | | | | | | Dada Dykes M.D. | | Instructor, Facial Plastic and | | Reconstructive Surgery | | Department of Otolaryngology, | | Head and Neck Surgery | | Sammy Boggs M.D. | | Geospatial Technologist, | | Facial Plastic and Reconstructive Surgery | | Department of Otolaryngology | | Head and Neck Surgery | | SIA /merced | | | | A | | A: 02/06/97 SM:[email or web address] | | C: 03/01/97 rc | | | | cc: Wilmer Rubalcava M.D. | | Professor and Applications Systems Analyst, Dermatology | | Director, Cutaneous Surgery | | | + + documented in this encounter Visit Diagnoses Not on filedocumented in this encounter"
--- OUTSIDE RECORDS SUMMARY | ~2020-06-09 | XMS | Encounter Summary ---
Demographics + + + | Address | [address] | | | [place] [address] | + + + | Home Phone | | + + + | Preferred Language | Unknown | + + + | Marital Status | | + + + | Yazdanism Affiliation | Unknown | + + + | Race | White | + + + | Ethnic Group | Unknown | + + + Author + + + | Author | [facility] | | | and [place] | + + + | Organization | [facility] | | | [...] [place] | | | | | [address] | | + + + + + | Angeli Burdick | ECON | [address] | | | | | [place] | | | | | [address] | | + + + + + Care Team Providers + +------+ + | Care Marine Oiler Name | Role | Phone | + [...] Description | +--------+--------+ + + + | 08/24/ | Refill | [facility] | Sveta Lawrence MD | Medication Refill | | 2018 | | [facility] [place] | [address] | | | | | [address] | [place] | | | | | [place] | [address] | | | | | [address] | | | | | | [phone] | | | +--------+--------+ + + + [...] Encounter - Rose Marie Cortes RN - 08/24/2018 3:42 PM PSTRx: requested: ox ybutynin Last filled: 04/26/2018 with 2 refills of qty 30 FRANKIE: 04/26/2018 Follow up advised: 1 year Next: 04/26/2019 Last Labs:04/22/2018, future ordered for f/u in 04/2019 Refill sent to pharmacy as requested by pharmacy. Medication is within guidelines for natanael col. documented in this encounter Plan of Treatment Not on filedocumented as of this encounter Visit Diagnoses Not on filedocumented in this encounter"
--- OUTSIDE RECORDS SUMMARY | ~2020-06-09 | XMS | Encounter Summary ---
Demographics + + + | Address | [address] | | | [place] [address] | + + + | Home Phone | | + + + | Preferred Language | Unknown | + + + | Marital Status | Single | + + + | Nondenominational Affiliation | Unknown | + + + | Race | Unknown | + + + | Ethnic Group | Not or | + + + Author + + + | Author | [facility] | + + + | Organization | [facility] | + + + | Address | Unknown | + + + | Phone | Unavailable | + + + Support + + +---------+ + | Name | Relationship | Address | Phone | + + +---------+ + | Fahad Lopez | ECON | Unknown | | + + +---------+ + Care Team Providers + +------+ + | Care Computer Support Technician Name | Role | Phone | + +------+ + PCP | Unavailable | + +------+ + Encounter Details +--------+ + + + + | Date | Type | Department | Care Team | Description | +--------+ + + + + | 01/10/ | Results | Surgical | Wilmer Rubalcava MD | | | 1996 | Only | Dermatology [address] | [address] [facility] | | | | | [address] | | | | | Mailcode:OP06 | [place] [address] | | | | | Outpatient Clinic | [phone] | | | | | [facility], Room [address] | | | | | | [place], [place] | | | | | | [address] | | | | | | [phone] | | | +--------+ + + + [...] | + +--------+ + + + | X-RAY CHEST 2 VIEW | Routin | 01/10/1997 | | Results for this | | | e | 11:27 AM | | procedure are in the | | | | PDT | | results section. | + +--------+ + + + documented in this encounter Results CHEST 2 VIEW (01/10/1997 11:27 AM PDT) + + + + + + | Component | Value | Ref Range | Performed | Pathologist | | | | | At | Signature | + + + + + + | CHEST, 2 | Radiologist 1: MERI, | | | | | VIEWS [place] | [facility], | | | | | STEREO | CHARO | | | | | | | | | | | | | | | | | | CHEST, 2 | | | | | | VIEWS: 01/10/97 at 1127 | | | | | | hrs Dictated: | | | | | | 01/11/97 The lungs are | | | | | | clear. The | | | | | | cardiomediastinal | | | | | | silhouette, | | | | | | [place],pulmonary | | | | | | vasculature and pleura | | | | | | are normal. IMPRESSION: | | | | | | Normal chest radiograph. | | | | | | END OF IMPRESSION: | | | | | | | | | | | | | | | | + + + + + + + + | Specimen | + + | | + + + +---------+ + + | Performing | Address | City/State/Zipcode | Phone Number | | Organization | | | | + +---------+ + + | [facility] | | | | | RADIOLOGY | | | | + +---------+ + + documented in this encounter Visit Diagnoses Not on filedocumented in this encounter"
--- OUTSIDE RECORDS SUMMARY | ~2020-06-09 | XMS | Encounter Summary ---
Demographics + + + | Address | [address] | | | [place] [address] | + + + | Home Phone | | + + + | Preferred Language | Unknown | + + + | Marital Status | | + + + | Bahai Affiliation | Unknown | + + + [...] [place] | | | | | [address] | | + + + + + | Angeli Burdick | ECON | [address] | | | | | [place] | | | | | [address] | | + + + + + Care Team Providers + +------+ + | Care Machine Stitcher Name | Role | Phone | + +------+ + PCP | Unavailable | + +------+ + Encounter Details +--------+ + + + + | Date | Type | Department | Care Team | Description | +--------+ + + + + | 04/30/ | Hospital | [facility] | | | | 1998 - | Encounter | MED CTR MED ONC | | | | | | [address] | | | | 05/01/ | | [place] [address] | | | | 1998 | | [phone] | | | +--------+ + + + [...]
--- OUTSIDE RECORDS SUMMARY | ~2020-06-09 | XMS | Encounter Summary ---
Demographics + + + | Address | [address] | | | [place] [address] | + + + | Home Phone | | + + + | Preferred Language | Unknown | + + + | Marital Status | | + + + | Jain Affiliation | Unknown | + + + | Race | White | + + + | Ethnic Group | Unknown | + + + Author + + + | Author | [facility] | | | and [place] | + + + | Organization | [facility] | | | [...] [place] | | | | | [address] | | + + + + + | Angeli Burdick | ECON | [address] | | | | | [place] | | | | | [address] | | + + + + + Care Team Providers + +------+ + | Care Gaming Associate Name | Role | Phone | + +------+ + PCP | Unavailable | + +------+ + Encounter Details +--------+ + + + + | Date | Type | Department | Care Team | Description | +--------+ + + + + | 10/12/ | Hospital | [facility] | | | | 2007 | Encounter | MED CTR GENERIC OP | | | | | | CONV DEPT [address] | | | | | | [place], | | | | | | [place] [address] | | | | | | [phone] | | | +--------+ + + + [...]
--- OUTSIDE RECORDS SUMMARY | ~2020-06-09 | XMS | Encounter Summary ---
Demographics + + + | Address | [address] | | | [place] [address] | + + + | Home Phone | | + + + | Preferred Language | Unknown | + + + | Marital Status | | + + + | Mandaen Affiliation | Unknown | + + + | Race | White | + + + | Ethnic Group | Unknown | + + + Author + + + | Author | [facility] | | | and [place] | + + + | Organization | [facility] | | | [...] [place] | | | | | [address] | | + + + + + | Angeli Burdick | ECON | [address] | | | | | [place] | | | | | [address] | | + + + + + Care Team Providers + +------+ + | Care Pharmacist Aide Name | Role | Phone | + +------+ + | Sveta Lawrence MD | PCP | | + +------+ + Encounter Details +--------+ + + + + | Date | Type | Department | Care Team | Description | +--------+ + + + + | 11/16/ | Episode | [facility] | Nalini Ray, | | | 2017 | Changes | GASTROENTEROLOGY | Senior Revenue Accountant | | | | | [address] [facility] | | | | | | [address] [place] | | | | | | [address] | | | | | | [phone] | | | +--------+ + + + [...]
--- OUTSIDE RECORDS SUMMARY | ~2020-06-09 | XMS | Encounter Summary ---
Demographics + + + | Address | [address] | | | [place] [address] | + + + | Home Phone | | + + + | Preferred Language | Unknown | + + + | Marital Status | | + + + | Nondenominational Affiliation [...] [place] | | | | | [address] | | + + + + + | Angeli Burdick | ECON | [address] | | | | | [place] | | | | | [address] | | + + + + + Care Team Providers + +------+ + | Care Woods Manager Name | Role | Phone | [...] Description | +--------+--------+ + + + | 06/27/ | Refill | [facility] | Sveta Lawrence MD | Medication Refill | | 2019 | | [facility] [place] | [address] | | | | | [address] | [place] | | | | | [place] | [address] | | | | | [address] | | | | | | [phone] | | | +--------+--------+ + + + [...] this encounter Miscellaneous Notes Telephone Encounter - Lisa Traore RN - 06/28/2019 10:31 AM PDTLast visit: 8 Next visit: not scheduled Pended for you and routed to the front to call and get patient scheduled. documented in this encounter Plan of Treatment Not on filedocumented as of this encounter Visit Diagnoses Not on filedocumented in this encounter"
--- OUTSIDE RECORDS SUMMARY | ~2020-06-09 | XMS | Encounter Summary ---
Demographics + + + | Address | [address] | | | [place] [address] | + + + | Home Phone [...] + | Author | [facility] | | | and [place] | + + + | Organization | [facility] | | | and [...] [place] | | | | | [address] | | + + + + + | Angeli Burdick | ECON | [address] | | | | | [place] | | | | | [address] | | + + + + + Care Team Providers + +------+ + | Care Flux Mixer Name | Role | Phone | + +------+ + PCP | Unavailable | + +------+ + Encounter Details +--------+ + + + + | Date | Type | Department | Care Team | Description | +--------+ + + + + | 09/08/ | Hospital | [facility] | | | | 1993 - | Encounter | MED CTR GENERIC OP | | | | | | CONV DEPT [address] | | | | 01/21/ | | [place], | | | | 1993 | | [place] [address] | | | | | | [phone] | | | +--------+ + + + [...]
--- OUTSIDE RECORDS SUMMARY | ~2020-06-09 | XMS | Encounter Summary ---
Demographics + + + | Address | [address] | | | [place] [address] | + + + | Home Phone | | + + + | Preferred Language | Unknown | + + + | Marital Status | | + + + | Synagogue Affiliation | Unknown | + + + | Race | White | + + + | Ethnic Group | Unknown | + + + Author + + + | Author | Located Within [facility] | | | and [place] | + + + | Organization | Located Within [facility] | | [...] [place] | | | | | [address] | | + + + + + | Angeli Burdick | ECON | [address] | | | | | [place] | | | | | [address] | | + + + + + Care Team Providers + +------+ + | Care Medicare Sales Representative Name | Role | Phone | + +------+ + | Sveta Lawrence MD | PCP | | + +------+ + Reason for Visit + + + | Reason | Comments | + + + | Hypothyroidism | | + + + | Gastroesophageal | | | Reflux | | + + + | Hypertension | | + + + | Establish Care | | + + + Encounter Details +--------+---------+ + + + | Date | Type | Department | Care Team | Description | +--------+---------+ + + + | 06/25/ | Office | [facility] | Sveta Lawrence MD | Acquired | | 2017 | Visit | [facility] | [address] | hypothyroidism | | | | [address] | [place] | (Primary Dx); Need | | | | [place] | [address] | for pneumococcal | | | | [address] | | vaccination; Need | | | | [phone] | | for influenza | | | | | | vaccination; | | | | | | Hyperglycemia; | | | | | | HYPERTENSION, BENIGN | | | | | | ESSENTIAL; | | | | | | Bariatric surgery | | | | | | status | +--------+---------+ + + + Social History [...] + + + | Blood Pressure | 140/74 | 06/25/2017 3:49 PM | | | | | PDT | | + + + + + | Pulse | 77 | 06/25/2017 3:49 PM | | | | | PDT | | + + + + + | Temperature | 36.4 C (97.5 F) | 06/25/2017 3:49 PM | | | | | PDT | | + + + + + | Respiratory Rate | 15 | 06/25/2017 3:49 PM | | | | | PDT | | + + + + + | Oxygen Saturation | 96% | 06/25/2017 3:49 PM | | | | | PDT | | + + + + + | Inhaled Oxygen | - | - | | | Concentration | | | | + + + + + | Weight | 79.7 kg (175 lb 9.6 | 06/25/2017 3:49 PM | | | | oz) | PDT | | + + + + + | Height | 160 cm (5' 3") | 06/25/2017 3:49 PM | | | | | PDT | | + + + + + | Body Mass Index | 31.11 | 06/25/2017 3:49 PM | | | | | PDT | | + + + + + documented in this encounter Patient Instructions Patient Instructions Sveta Lawrence MD - 06/25/2017 4:57 PM PDTFormatting of this note mi ght be different from the original. Prevention Guidelines, Women Ages 65 and Older Screening tests and vaccines are an important part of managing your health. Health counseli ng is essential, too. Below are guidelines for these, for women ages 65 and older. Talk with your healthcare provider to make sure you re up to date on what you need. Screening Who needs it How often Type 2 diabetes or prediabetes All adults beginning at age 45 and adults without symptoms a t any age who are overweight or obese and have 1 or more additional risk factors for diabete s At least every 3 years Alcohol misuse All women in this age group At routine exams Blood pressure All women in this age group Every 2 years if your blood pressure is less jackie n 120/80 mm Hg; yearly if your systolic blood pressure is 120 to 139 mm Hg, or your diastoli c blood pressure reading is 80 to 89 mm Hg Breast cancer All women in this age group Yearly mammogram and clinical breast exam1 Cervical cancer Only women who had abnormal screening results before age 65 Talk with your healthcare provider Chlamydia Women at increased risk for infection At routine exams Colorectal cancer All women in this age group1 Flexible sigmoidoscopy every 5 years, or col onoscopy every 10 years, or double-contrast barium enema every 5 years; yearly fecal occult blood test or fecal immunochemical test; or a stool DNA test as often as your healthcare pro vider advises; talk with your healthcare provider about which tests are best for you Depression All women in this age group At routine exams Gonorrhea Sexually active women at increased risk for infection At routine exams Hepatitis C Anyone at increased risk; 1 time for those born between 1945 and 1965 At routin e exams High cholesterol or triglycerides All women in this age group who are at risk for coronary artery disease At least every 5 years HIV Women at increased risk for infection talk with your healthcare provider At routine exams Lung cancer Adults age 55 to 80 who have smoked Yearly screening in smokers with 30 pack-ye ar history of smoking or who quit within 15 years Obesity All women in this age group At routine exams Osteoporosis All women in this age group Bone density test at age 65, then follow-up as adv ised by your healthcare provider Syphilis Women at increased risk for infection talk with your healthcare provider At ro utine exams Thyroid-Stimulating Hormone (TSH) All women in this age group Every 5 years Tuberculosis Women at increased risk for infection talk with your healthcare provider A sk your healthcare provider Vision All women in this age group Every 1 to 2 years; if you have a chronic health conditi on, ask your healthcare provider if you need exams more often Vaccine Who needs it How often Chickenpox (varicella) All women in this age group who have no record of this infection or vaccine 2 doses; second dose should be given at least 4 weeks after the first dose Hepatitis A Women at increased risk for infection talk with your healthcare provider 2 doses given 6 months apart Hepatitis B Women at increased risk for infection talk with your healthcare provider 3 doses over 6 months; second dose should be given 1 month after the first dose; the third dos e should be given at least 2 months after the second dose and at least 4 months after the fi rst dose Haemophilus influenzaType B (HIB) Women at increased risk for infection talk with you r healthcare provider 1 to 3 doses Influenza (flu) All women in this age group Once a year Pneumococcalconjugate vaccine (PCV13)and pneumococcal polysaccharidevaccine (PPSV23) All women in this age group 1 dose of each vaccine Tetanus/diphtheria/pertussis (Td/Tdap) booster All women in this age group Td every 10 year s, or a one-time dose of Tdap instead of a Td booster after age 18, then Td every 10 years Zoster All women in this age group 1 dose Counseling Who needs it How often Diet and exercise Women who are overweight or obese When diagnosed, and then at routine exa ms Fall prevention (exercise and vitamin D supplements) All women in this age group At routine exams Sexually transmitted infection prevention Women at increased risk for infection talk wi th your healthcare provider At routine exams Use of daily aspirin Women ages 55 and up in this age group who are at risk for cardiovascu lar health problems such as stroke When your risk is known Use of tobacco and the health effects it can cause All women in this age group Every exam 1American Cancer Society Date Last Reviewed: 04/15/201519992315-8124 [employer]. [address] [place] [address]. All righ ts reserved. This information is not intended as a substitute for professional medical care. Always follow your healthcare professional's instructions. Prevention Guidelines, Women Ages 65 and Older Screening tests and vaccines are an important part of managing your health. Health counseli ng is essential, too. Below are guidelines for these, for women ages 65 and older. Talk with your healthcare provider to make sure you re up to date on what you need. Screening Who needs it How often Type 2 diabetes or prediabetes All adults beginning at age 45 and adults without symptoms a t any age who are overweight or obese and have 1 or more additional risk factors for diabete s At least every 3 years Alcohol misuse All women in this age group At routine exams Blood pressure All women in this age group Every 2 years if your blood pressure is less jackie n 120/80 mm Hg; yearly if your systolic blood pressure is 120 to 139 mm Hg, or your diastoli c blood pressure reading is 80 to 89 mm Hg Breast cancer All women in this age group Yearly mammogram and clinical breast exam1 Cervical cancer Only women who had abnormal screening results before age 65 Talk with your healthcare provider Chlamydia Women at increased risk for infection At routine exams Colorectal cancer All women in this age group1 Flexible sigmoidoscopy every 5 years, or col onoscopy every 10 years, or double-contrast barium enema every 5 years; yearly fecal occult blood test or fecal immunochemical test; or a stool DNA test as often as your healthcare pro vider advises; talk with your healthcare provider about which tests are best for you Depression All women in this age group At routine exams Gonorrhea Sexually active women at increased risk for infection At routine exams Hepatitis C Anyone at increased risk; 1 time for those born between 1945 and 1964 At routin e exams High cholesterol or triglycerides All women in this age group who are at risk for coronary artery disease At least every 5 years HIV Women at increased risk for infection talk with your healthcare provider At routine exams Lung cancer Adults age 55 to 80 who have smoked Yearly screening in smokers with 30 pack-ye ar history of smoking or who quit within 15 years Obesity All women in this age group At routine exams Osteoporosis All women in this age group Bone density test at age 65, then follow-up as adv ised by your healthcare provider Syphilis Women at increased risk for infection talk with your healthcare provider At ro utine exams Thyroid-Stimulating Hormone (TSH) All women in this age group Every 5 years Tuberculosis Women at increased risk for infection talk with your healthcare provider A sk your healthcare provider Vision All women in this age group Every 1 to 2 years; if you have a chronic health conditi on, ask your healthcare provider if you need exams more often Vaccine Who needs it How often Chickenpox (varicella) All women in this age group who have no record of this infection or vaccine 2 doses; second dose should be given at least 4 weeks after the first dose Hepatitis A Women at increased risk for infection talk with your healthcare provider 2 doses given 6 months apart Hepatitis B Women at increased risk for infection talk with your healthcare provider 3 doses over 6 months; second dose should be given 1 month after the first dose; the third dos e should be given at least 2 months after the second dose and at least 4 months after the fi rst dose Haemophilus influenzaType B (HIB) Women at increased risk for infection talk with you r healthcare provider 1 to 3 doses Influenza (flu) All women in this age group Once a year Pneumococcalconjugate vaccine (PCV13)and pneumococcal polysaccharidevaccine (PPSV23) All women in this age group 1 dose of each vaccine Tetanus/diphtheria/pertussis (Td/Tdap) booster All women in this age group Td every 10 year s, or a one-time dose of Tdap instead of a Td booster after age 18, then Td every 10 years Zoster All women in this age group 1 dose Counseling Who needs it How often Diet and exercise Women who are overweight or obese When diagnosed, and then at routine exa ms Fall prevention (exercise and vitamin D supplements) All women in this age group At routine exams Sexually transmitted infection prevention Women at increased risk for infection talk wi th your healthcare provider At routine exams Use of daily aspirin Women ages 55 and up in this age group who are at risk for cardiovascu lar health problems such as stroke When your risk is known Use of tobacco and the health effects it can cause All women in this age group Every exam 1American Cancer Society Date Last Reviewed: 04/15/201519992359-4243 [employer]. [address] [place] [address]. All righ ts reserved. This information is not intended as a substitute for professional medical care. Always follow your healthcare professional's instructions. documented in this encounter Progress Notes Sveta Lawrence MD - 06/25/2017 3:30 PM PDT dagmar Cifuentes Subjective: Patient ID: Dagmar Cifuentes is a 71 y.o. female. Dagmar presents to the clinic by herself to establish care today. Chief Complaint Patient presents with Hypothyroidism Gastroesophageal Reflux Hypertension Establish Care HPI: Sarah is here today to establish care she is a previous patient of Dr. Stein. Had cataract surgery B/L end April with stent for Glaucoma and doing well and reading with out glases! Since age 39. She is independent and has lots of energy. Looking to have labs for A1c, lipids, Rx refills. She controles her DM with diet and exercise. Takes Synthroid and [place]. On Thyroid meds since age 19. HYPERTENSION: She reports taking Lisinopril 2.5 mg daily for hypertension. Her blood pressure today is s lightly higher than her usual. HYPOTHYROIDISM: The patient reports that she is needing her labs checked for her thyroid today. She takes [place] thyroid 15 mg daily as well as Levothyroxine 75 mg daily. We are going to discontinue [place] Thyroid today and adjust everything with levothyroxine. GERD: She reports that she had a Colonoscopy done. She takes Omeprazole 20 mg daily to control h er GERD. Colonoscopy, flexible, . (10/12/2007), Mammography; bilateral. (12/06/2014). Patient Reported Neuroplasty and/or transposition; median nerve at carpal tunnel, Laparoscopy, surgical, gastric restrictive procedure; placement of adjustable gastric restr ictive device (eg, gastric band and subcutaneous port components) (09/07/1984), Tonsillectomy, primary or secondary; younger than age 12 (09/07/1961), Unlisted procedure, shoulder (08/17/2013). ETOH: tequila or Gin once a week Drugs: none Tobacco: none 02/12/17: DUAL-ENERGY X-RAY ABSORPTIOMETRY CLINICAL INFORMATION: Osteopenia. COMPARISON: None PROCEDURE: Regional bone mass was determined with the TeliportmeX. The lumbar spine L 1 - L 4 and bilateral hip were evaluated. FINDINGS: Lumbar Spine Total BMD: 1.187 T-Score: 0.1 Z -Score: 1.3 Right Hip Total BMD: 0.846 T-Score: -1.3 Z-Score: -0.1 Femoral neck T-Score: -1. 2 Left Hip Total BMD: 0.834 T-Score: -1.4 Z-Score: -0.2 Femoral neck T-Score: -1.5 BMD = Bon e mineral density in grams/(cm2). T-Score = BMD compared to young adult normals (s tandard deviations from the mean). Z- Score = BMD compared to age-matched, ethnically matche d controls (standard deviations from the mean). The World Health Organization criteria are a s follows: T-ScoreINTERPRETATION -1 or aboveNormal -1 to -2.4Osteopenia -2.5 or belowOsteopo rosis (significantly increased fracture risk). IMPRESSION: Osteopenia Past Medical History: Diagnosis Date Arthritis Cancer [...] day levothyroxine (SYNTHROID) 75 MCG tablet Take 75 mcg by mouth Daily. (Patient taking dif ferently: Take 88 mcg by mouth Daily.) lisinopril (PRINIVIL,ZESTRIL) 2.5 MG tablet Take 1 tablet by mouth Daily. 90 tablet 3 multivitamin (THERAGRAN) per tablet daily NAPROXEN PO TABS Take/use as needed. omeprazole (PRILOSEC) 20 mg capsule Take 1 capsule by mouth Daily. 90 capsule 3 No current facility-administered medications for this visit. Review of Systems Constitutional: Negative. HENT: Positive for hearing loss. Eyes: Positive for blurred vision. Respiratory: Negative. Cardiovascular: Negative. Gastrointestinal: Positive for heartburn. Manage on Omeprazole Genitourinary: Positive for urgency. Incontinence Musculoskeletal: Positive for joint pain. Skin: Negative. Neurological: Negative. Endo/Heme/Allergies: Negative. Psychiatric/Behavioral: Negative. Objective: BP 140/74 | Pulse 77 | Temp 36.4 C (97.5 F) (Temporal) | Resp 15 | Ht 1.6 m (5' 3") | Wt 79.7 kg (175 lb 9.6 oz) | SpO2 96% | ? No | BMI 31.11 kg/m Physical Exam General Appearance: Alert, cooperative, no distress, appears stated age; obesity I Head: Normocephalic, without obvious abnormality, atraumatic Eyes: [...] 1. Acquired hypothyroidism (Primary) Assessment & Plan: To discontinue [place] Thyroid and obtain TSH, will adjust levothyroxine accordingly Orders: - TSH; Future 2. Need for pneumococcal vaccination - Pneumococcal polysaccharide vaccine 23-valent greater than or equal to 2yo subcutaneo us/IM 3. Need for influenza vaccination - Influenza 65Y OR >,Trivalent High-Dose 4. Hyperglycemia Assessment & Plan: Will monitor A1C Orders: - Hemoglobin A1C; Future 5. HYPERTENSION, BENIGN ESSENTIAL Assessment & Plan: On Lisinopril 2.5 mg, encouraged to daily exercise Orders: - CBC with Differential; Future - Comprehensive Metabolic Panel; Future - Lipid Panel; Future - Lisinopril; Take 1 tablet by mouth Daily. Dispense: 90 tablet; Refill: 3 6. Bariatric surgery status Other orders - Omeprazole; Take 1 capsule by mouth Daily. Dispense: 90 capsule; Refill: 3 The patient was satisfied with the care received and voiced understanding of the issues dis cussed and the plan. Return in about 1 year (around 06/25/2018). She will proceed with a mammogram in [place], she's up-to-date on healthcare maintenance parameters. I reviewed prior medical records from Dr. Stein. documented in this enc ounter Miscellaneous Notes Assessment & Plan Note - Sveta Lawrence MD - 06/25/2017 5:59 PM PDTAssociated Problem(s): HYPOTHYROIDISMTo discontinue [place] Thyroid and obtain TSH, will adjust levothyroxine accor dingly ssessment & Plan Note - Sveta Lawrence MD - 06/25/2017 4:43 PM PDTAssociated Problem(s): HYPERTENSION, SOL IGN ESSENTIALOn Lisinopril 2.5 mg, encouraged to daily exercise ssessment & Plan Note - Sveta Lawrence MD - 2016 4:43 PM PDTAssociated Problem(s): HyperglycemiaWill monitor [id number] signed Armando Lawrence MD at 06/25/2017 4:43 PM PDTdocumented in this encounter Plan of Treatment + +------+--------+ + + | Name | Type | Priori | Associated Diagnoses | Order Schedule | | | | ty | | | + +------+--------+ + + | CBC with | Lab | Routin | HYPERTENSION, | 1 Occurrences | | Differential | | e | BENIGN ESSENTIAL | starting 06/25/2017 | | | | | | until 06/25/2018 | + +------+--------+ + + | Comprehensive | Lab | Routin | HYPERTENSION, | 1 Occurrences | | Metabolic Panel | | e | BENIGN ESSENTIAL | starting 06/25/2017 | | | | | | until 06/25/2018 | + +------+--------+ + + | Hemoglobin A1C | Lab | Routin | Hyperglycemia | 1 Occurrences | | | | e | | starting 06/25/2017 | | | | | | until 06/25/2018 | + +------+--------+ + + | Lipid Panel | Lab | Routin | HYPERTENSION, | 1 Occurrences | | | | e | BENIGN ESSENTIAL | starting 06/25/2017 | | | | | | until 06/25/2018 | + +------+--------+ + + documented as of this encounter Visit Diagnoses + + | Diagnosis | + + | Acquired hypothyroidism - Primary Unspecified hypothyroidism | + + | Need for pneumococcal vaccination Need for prophylactic vaccination against | | streptococcus pneumoniae (pneumococcus) | + + | Need for influenza vaccination Need for prophylactic vaccination and inoculation | | against influenza | + + | Hyperglycemia Other abnormal glucose | + + | HYPERTENSION, BENIGN ESSENTIAL Essential hypertension, benign | + + | Bariatric surgery status | + + documented in this encounter
--- OUTSIDE RECORDS SUMMARY | ~2020-06-09 | XMS | Encounter Summary ---
Demographics + + + | Address | [address] | | | [place] [address] | + + + | Home Phone | | + + + | Preferred Language | Unknown | + + + | Marital Status | | + + + | Advent Affiliation | Unknown | + + + | Race | White | + + + | Ethnic Group | Unknown | + + + Author + + + | Author | [facility] | | | and [place] | + + + | Organization | [facility] | | [...] [place] | | | | | [phone] | | + + + + + | Angeli Burdick | ECON | [address] | | | | | [place] | | | | | [address] | | + + + + + Care Team Providers + +------+ + | Care Guitar Maker Name | Role | Phone | + +------+ + PCP | Unavailable | + +------+ + Encounter Details +--------+ + + + + | Date | Type | Department | Care Team | Description | +--------+ + + + + | 04/15/ | Hospital | [facility] | | | | 2003 - | Encounter | [facility] | | | | | | [address] [place] | | | | 05/15/ | | [place] [address] | | | | 2003 | | [phone] | | | +--------+ + + + [...]
--- OUTSIDE RECORDS SUMMARY | ~2020-06-09 | XMS | Encounter Summary ---
Demographics + + + | Address | [address] | | | [place] [address] | + + + | Home Phone | | + + + | Preferred Language | Unknown | + + + | Marital Status | Single | + + + | Jainism Affiliation | Unknown | + + + | Race | Unknown | + + + | Ethnic Group | Not or | + + + Author + + + | Author | [facility] | + + + | Organization | [facility] | + + + | Address | Unknown | + + + | Phone | Unavailable | + + + Support + + +---------+ + | Name | Relationship | Address | Phone | + + +---------+ + | Fahad Lopez | ECON | Unknown | | + + +---------+ + Care Team Providers + +------+ + | Care Wood Tool Maker Name | Role | Phone | + +------+ + PCP | Unavailable | + +------+ + Encounter Details +--------+ + + + + | Date | Type | Department | Care Team | Description | +--------+ + + + + | 02/22/ | Office | General Internal | Note, Outpatient | Progress Note | | 1996 | Visit-Trans | Medicine [address] | Clinic | | | | [place] | Addy [facility] | | | | | | Mailcode: [id number] | | | | | | Outpatient Clinic | | | | | | [facility], [address] | | | | | [place], [place] | | | | | | [address] | | | | | | [phone] | | | +--------+ + + + [...] documented as of this encounter Progress Notes Interface, Tailor Helper In - 11/02/2006 5:08 AM [facility] DATE: 02/22/97 [facility]: SUMMARY: She returns a month after Rhombic flap closure of the left cheek defect following melanoma excision. She is doing very well and healing nicely. I am pleased with her progress. She is to return in a month for dermabrasion in the clinic. We gave her two tubes of Emla cream to apply to the area beforehand and will do this under local anesthesia in the clinic. That has been scheduled for 04/04. Sammy Boggs M.D. Senior Telecommunications Engineer, Facial Plastic and Reconstructive Surgery, Department of Otolaryngology Head and Neck Surgery TDW:l[place]ann cc: Wilmer Rubalcava M.D. Professor and Waiter/Waitress Third Class, Dermatology Director, Cutaneous Surgery documented in this encounter Plan of Treatment Not on filedocumented as of this encounter Visit Diagnoses Not on filedocumented in this encounter"
--- OUTSIDE RECORDS SUMMARY | ~2020-06-09 | XMS ---
Demographics + + + | Address | [address] | | | [place] [address] | + + + | Preferred Language | Unknown | + + + | Marital Status | Unknown | + + + | Gnosticist Affiliation | Unknown | + + + | Race | Unknown | + + + | Ethnic Group | Unknown | + + + Author + + + | Author | [facility] | + + + | Organization | [facility] | + + + | Address | [address] | | | [place] [address] | + + + | Phone | | + + + Care Team Providers + + + + | Care Control Room Tender Name | Role | Phone | + + + + Unavailable | Unavailable | + + + + PROBLEMS + + + + + + + + | Type | Condition | ICD9-CM | [id number] | Onset | Condition | SNOMED | | | | Code | Code | Dates | Status | Code | + + + + + + + + | Assessment | Contusion | S90.31XA | | 11 Dec, | Active | [id number] | | | of right | | | 2016 | | [id number] | | | foot | | | | | | + + + + + + + + | Assessment | Fall on | W18.31XA | | 11 Dec, | Active | | | | same level | | | 2016 | | | | | due to | | | | | | | | stepping | | | | | | | | on an | | | | | | | | object | | | | | | + + + + + + + + | Assessment | Fracture | S92.353A | | 11 Dec, | Active | [id number] | | | of 5th | | | 2016 | | | | | metatarsal | | | | | | + + + + + + + + ALLERGIES + + + + +--------+ | Substance | Reaction | Event Type | Date | Status | + + + + +--------+ | Vicodin | Unknown | Drug Allergy | Dec, | Active | + + + + +--------+ | Sulfa | Unknown | Drug Allergy | Dec, | Active | + + + + +--------+ | Codeine | Unknown | Drug Allergy | Dec, | Active | + + + + +--------+ SOCIAL HISTORY No smoking Hx information available PLAN OF CARE VITAL SIGNS + + + + | Height | 63 in | 2016-12-16 | + + + + | Weight | 186.2 lbs | 2016-12-16 | + + + + | BMI | 32.98 kg/m2 | 2016-12-16 | + + + + | Temperature | 97.9 degrees Fahrenheit | 2016-12-16 | + + + + | Heart Rate | 65 /min | 2016-12-16 | + + + + | Blood pressure systolic | 138 mm Hg | 2016-12-16 | + + + + | Blood pressure diastolic | 83 mm Hg | 2016-12-16 | + + + + MEDICATIONS + + + + +--------+ + +--------+ | Medicati | Instruct | Dosage | Frequenc | Start | End Date | Duration | Status | | on | ions | | y | Date | | | | + + + + +--------+ + +--------+ | Synthroi | Orally | 1 tablet | 24h | | | 30 | Active | | d 88 MCG | Once a | every | | | | day(s) | | | | day | morning | | | | | | | | | on an | | | | | | | | | empty | | | | | | | | | stomach | | | | | | + + + + +--------+ + +--------+ | Lisinopr | Orally | 1 tablet | 24h | | | 30 | Active | | il 10 MG | Once a | | | | | day(s) | | | | day | | | | | | | + + + + +--------+ + +--------+ | Calcium | Orally | 1 tablet | 12h | | | 30 | Active | | 500 MG | Twice a | with | | | | day(s) | | | | day | meals | | | | | | + + + + +--------+ + +--------+ | Prevacid | Orally | 1 | 24h | | | 30 | Active | | 30 MG | Once a | capsule | | | | day(s) | | | | day | before a | | | | | | | | | meal | | | | | | + + + + +--------+ + +--------+ RESULTS + +--------+------+ + | Name | Result | Date | Reference Range | + +--------+------+ + | X ray : Foot AP/L/O | | | | | (3+ views)- RT | | | | + +--------+------+ + PROCEDURES + + + + + | Procedure | Date Ordered | Related Diagnosis | Body Site | + + + + + | Est Level III | December 16, 2016 | | | | Intermediate | | | | + + + + + | APPLICATION OF FOOT | December 16, 2016 | | | | SPLINT | | | | + + + + + IMMUNIZATIONS No Known Immunizations"
--- OUTSIDE RECORDS SUMMARY | ~2020-06-09 | XMS | Encounter Summary ---
Demographics + + + | Address | [address] | | | [place] [address] | + + + | Home Phone | | + + + | Preferred Language | Unknown | + + + | Marital Status | Single | + + + | Congregational Affiliation | Unknown | + + + | Race | Unknown | + + + | Ethnic Group | Not or | + + + Author + + + | Author | [facility] | + + + | Organization | [facility] | + + + | Address | Unknown | + + + | Phone | Unavailable | + + + Support + + +---------+ + | Name | Relationship | Address | Phone | + + +---------+ + | Fahad Lopez | ECON | Unknown | | + + +---------+ + Care Team Providers + +------+ + | Care Signaling Project Engineer Name | Role | Phone | + +------+ + PCP | Unavailable | + +------+ + Encounter Details +--------+ + + + + | Date | Type | Department | Care Team | Description | +--------+ + + + + | 04/04/ | Procedure - | [facility] | Record, Operation | Operative Report | | 1996 | | [place] [id number] | | | | | Transcribed | [facility] | | | | | | for [facility] and | | | | | | Healing, [address] | | | | | | [place], [place] | | | | | | [address] | | | | | | [phone] | | | +--------+ + + + [...] this encounter Procedure Notes Record, Operation - 04/04/1997 12:00 AM PDTAssociated Order(s): OPERATION RECORD [place] [address] [place], [place] [address] [facility] OPERATION RECORD Med Rec No.: [id number] Date: 04/04/97 Name: Charo Cifuentes ATTENDING SURGEON: Sammy Boggs M.D. Top Inventory Control Executive, Facial Plastic and Reconstructive Surgery Department of Otolaryngology Head and Neck coin wrapping machine operator(S): POSTOPERATIVE DIAGNOSIS(ES): Left cheek scar status post flap reconstruction. OPERATION(S) PERFORMED: Dermabrasion of left cheek scar. SPECIMEN(S) REMOVED: None. COMPLICATIONS: None. PROCEDURE: The patient was placed in a lounge-chair position in the procedure room in the clinic. She had EMLA Cream placed on her left cheek for two hours prior to the procedure. This was removed and 3 cc of a solution of 0.5% lidocaine, 0.25% Marcaine, and 1:100,000 epinephrine was instilled into the left cheek. The area was prepped. The area was dermabraded using the wire brush, followed by the coarse, and then the fine. The dermabrasion followed the lines of the scar on the cheek and measured approximately 30 cm in length total. She tolerated the procedure well. The area was dressed with Vigilon. The procedure was terminated. The patient was given postoperative instructions and follow-up instructions, as well. Sammy Boggs M.D. Top Inventory Control Executive, Facial Plastic and Reconstructive Surgery Department of Otolaryngology Head and Neck Surgery MAI/kacie A documented in this encou nter Plan of Treatment Not on filedocumented as of this encounter Procedures + +--------+ + + + | Procedure Name | Priori | Date/Time | Associated Diagnosis | Comments | | | ty | | | | + +--------+ + + + | OPERATION RECORD | | 04/04/1997 | | Results for this | | | | 12:00 AM | | procedure are in the | | | | PDT | | results section. | + +--------+ + + + documented in this encounter Results OPERATION RECORD (04/04/1997 12:00 AM PDT) + + | Procedure Note | + + | 04/04/1997 12:00 AM PDT [place] | | [facility] | | [address] [place] [address] | | [facility] | | | | OPERATION RECORD | | | | Med Rec No.: [id number] Date: 04/04/97 | | | | Name: Charo Cifuentes Sharifa | | | | | | ATTENDING SURGEON: Sammy Boggs M.D. | | Top Inventory Control Executive, | | Facial Plastic and Reconstructive Surgery | | Department of Otolaryngology | | Head and Neck Surgery | | | | BOARD STACKER(S): | | | | POSTOPERATIVE DIAGNOSIS(ES): Left cheek scar status post flap | | reconstruction. | | | | OPERATION(S) PERFORMED: Dermabrasion of left cheek scar. | | | | SPECIMEN(S) REMOVED: None. | | | | COMPLICATIONS: None. | | | | PROCEDURE: The patient was placed in a lounge-chair | | position in the procedure room in the | | clinic. She had EMLA Cream | | placed on her left cheek for two hours prior to the procedure. This was | | removed and 3 cc of a solution of 0.5% lidocaine, 0.25% Marcaine, and | | 1:100,000 epinephrine was instilled into the left cheek. The area was | | prepped. | | | | The area was dermabraded using the wire brush, followed by the coarse, and | | then the fine. The dermabrasion followed the lines of the scar on the cheek | | and measured approximately 30 cm in length total. She tolerated the | | procedure well. The area was dressed with Vigilon. The procedure was | | terminated. | | | | The patient was given postoperative instructions and follow-up instructions, | | as well. | | | | | | | | Sammy Boggs M.D. | | Top Inventory Control Executive, | | Facial Plastic and Reconstructive Surgery | | Department of Otolaryngology | | Head and Neck Surgery | | | | MAI/kacie | | | | A | | | + + documented in this encounter Visit Diagnoses Not on filedocumented in this encounter"
--- OUTSIDE RECORDS SUMMARY | ~2020-06-09 | XMS | Encounter Summary ---
Demographics + + + | Address | [address] | | | [place] [address] | + + + | Home Phone | | + + + | Preferred Language | Unknown | + + + | Marital Status | | + + + | Amish Affiliation | Unknown | + + + | Race | White | + + + | Ethnic Group | Unknown | + + + Author + + + | Author | [facility] | | | and [place] | + + + | Organization | [facility] | | | [...] [place] | | | | | [address] | | + + + + + | Angeli Burdick | ECON | [address] | | | | | [place] | | | | | [address] | | + + + + + Care Team Providers + +------+ + | Care Camera Technician Name | Role | Phone | [...] Description | +--------+--------+ + + + | 05/21/ | Refill | [facility] | Sveta Lawrence MD | Medication Refill | | 2019 | | [facility] [place] | [address] | | | | | [address] | [place] | | | | | [place] | [address] | | | | | [address] | | | | | | [phone] | | | +--------+--------+ + + + [...] this encounter Miscellaneous Notes Telephone Encounter - Beatrice Dukes RN - 05/24/2019 1:18 PM PDTLast visit 04/26/18 Next visit not scheduled Last refill 09/27/17 #90 R=1 Pended for your review Tdocumented in this encounter Plan of Treatment Not on filedocumented as of this encounter Visit Diagnoses Not on filedocumented in this encounter"
--- OUTSIDE RECORDS SUMMARY | ~2020-06-09 | XMS | Encounter Summary ---
Demographics + + + | Address | [address] | | | [place] [address] | + + + | Home Phone | | + + + | Preferred Language | Unknown | + + + | Marital Status | | + + + | Temple Affiliation | Unknown | + + + | Race | White | + + + | Ethnic Group | Unknown | + + + Author + + + | Author | [facility] | | | and [place] | + + + | Organization | [facility] | | | and [...] [place] | | | | | [address] | | + + + + + | Angeli Burdick | ECON | [address] | | | | | [place] | | | | | [address] | | + + + + + Care Team Providers + +------+ + | Care Pmo Lead Name | Role | Phone | + +------+ + PCP | Unavailable | + +------+ + Encounter Details +--------+ + + + + | Date | Type | Department | Care Team | Description | +--------+ + + + + | 11/01/ | Hospital | [facility] | | | | 2007 | Encounter | MED CTR XRAY [address] | | | | | | [place] | | | | | | [place] [address] | | | | | | [phone] | | | +--------+ + + + [...]
--- OUTSIDE RECORDS SUMMARY | ~2020-06-09 | XMS | Encounter Summary ---
Demographics + + + | Address | [address] | | | [place] [address] | + + + | Home Phone | | + + + | Preferred Language | Unknown | + + + | Marital Status | | + + + | Mandaeism Affiliation | Unknown | + + + | Race | White | + + + | Ethnic Group | Unknown | + + + Author + + + | Author | [facility] | | | and [place] | + + + | Organization | [facility] | | | and [place] | + + + | Address | Unknown | + + + | Phone | Unavailable | + + + Support + + + + + | Name | Relationship | Address | Phone | + + + + + | Kelly Sexton | ECON | [address] | | | | | [place] | | | | | [address] | | + + + + + | Angeli Burdick | ECON | [address] | | | | | [place] | | | | | [address] | | + + + + + Care Team Providers + +------+ + | Care General Foundry Worker Name | Role | Phone | + +------+ + PCP | Unavailable | + +------+ + Encounter Details +--------+ + + + + | Date | Type | Department | Care Team | Description | +--------+ + + + + | 10/11/ | Hospital | [facility] | | | | 2007 | Encounter | MED CTR XRAY [address] | | | | | | [place] | | | | | | [place] [address] | | | | | | [phone] | | | +--------+ + + + [...]
--- OUTSIDE RECORDS SUMMARY | ~2020-06-09 | XMS | Encounter Summary ---
Demographics + + + | Address | [address] | | | [place] [address] | + + + | Home Phone | | + + + | Preferred Language | Unknown | + + + | Marital Status | Single | + + + | Druze Affiliation | Unknown | + + + | Race | Unknown | + + + | Ethnic Group | Not or | + + + Author + + + | Author | [facility] | + + + | Organization | [facility] | + + + | Address | Unknown | + + + | Phone | Unavailable | + + + Support + + +---------+ + | Name | Relationship | Address | Phone | + + +---------+ + | Fahad Lopez | ECON | Unknown | | + + +---------+ + Care Team Providers + +------+ + | Care Simulation Technician Name | Role | Phone | + +------+ + PCP | Unavailable | + +------+ + Encounter Details +--------+ + + + + | Date | Type | Department | Care Team | Description | +--------+ + + + + | 02/03/ | Office | General Internal | Note, Outpatient | Progress Note | | 1996 | Visit-Trans | Medicine [address] | Clinic | | | | [place] | Addy [facility] | | | | | | Mailcode: [id number] | | | | | | Outpatient Clinic | | | | | | [facility], [address] | | | | | | [place], [place] | | | | | | [address] | | | | | | [phone] | | | +--------+ + + + [...] as of this encounter Progress Notes Interface, Housing Inspectors In - 11/02/2006 5:08 AM [facility] DATE: 02/03/97 [facility] Charo Blanchard returns one day after her rhombic flap closure of her left cheek. Everything looks very good. She is doing very well. I gave her some instructions and I will see her back in the middle of next month when she returns to [facility]. I will have my office contact her to schedule that appointment. Sammy Boggs M.D. Network Engineer, Facial Plastic and Reconstructive Surgery, Department of Otolaryngology Head and Neck Surgery MAI/yves cc: Wilmer Rubalcava M.D. Professor and Training Consultant, Dermatology Director, Cutaneous Surgery documented in this encounter Plan of Treatment Not on filedocumented as of this encounter Visit Diagnoses Not on filedocumented in this encounter"
--- OUTSIDE RECORDS SUMMARY | ~2020-06-09 | XMS | Encounter Summary ---
Demographics + + + | Address | [address] | | | [place] [address] | + + + | Home Phone | | + + + | Preferred Language | Unknown | + + + | Marital Status | | + + + | Restoration Affiliation | Unknown | + + + | Race | White | + + + | Ethnic Group | Unknown | + + + Author + + + | Author | [facility] | | | and [place] | + + + | Organization | [facility] | | [...] [place] | | | | | [address] | | + + + + + | Angeli Burdick | ECON | [address] | | | | | [place] | | | | | [address] | | + + + + + Care Team Providers + +------+ + | Care Red Mud Thickener Operator Name | Role | Phone | + +------+ + | Sveta Lawrence MD | PCP | | + +------+ + Encounter Details +--------+ + + + + | Date | Type | Department | Care Team | Description | +--------+ + + + + | 01/11/ | Abstract | [facility] | Sveta Lawrence MD | | | 2018 | | MEDICINE [facility] | [address] | | | | | [address] | [place] | | | | | [place] | [address] | | | | | [address] | | | | | | [phone] | | | +--------+ + + + [...] | + +--------+ + + + | HEMOGLOBIN A1C | Routin | 06/26/2017 | | Results for this | | | e | | | procedure are in the | | | | | | results section. | + +--------+ + + + documented in this encounter Results Hemoglobin A1C (06/26/2017) + +-------+ + + + | Component | Value | Ref Range | Performed | Pathologist | | | | | At | Signature | + +-------+ + + + | Hemoglobin | 6.7 | % | | | | A1c | | | | | + +-------+ + + + + + | Specimen | + + | Blood | + + documented in this encounter Visit Diagnoses Not on filedocumented in this encounter"
--- OUTSIDE RECORDS SUMMARY | ~2020-06-09 | XMS | Encounter Summary ---
Demographics + + + | Address | [address] | | | [place] [address] | + + + | Home Phone | | + + + | Preferred Language | Unknown | + + + | Marital Status | | + + + | Jewish Affiliation | Unknown | + + + [...] [place] | | | | | [address] | | + + + + + | Angeli Burdick | ECON | [address] | | | | | [place] | | | | | [address] | | + + + + + Care Team Providers + +------+ + | Care Physical Instructor Name | Role | Phone | + +------+ + | Sveta Lawrence MD | PCP | | + +------+ + Reason for Visit + + + | Reason | Comments | + + + | Hypothyroidism | 3 month follow up. | + + + | Hyperlipidemia | | + + + | Hyperglycemia | | + + + Encounter Details +--------+---------+ + + + | Date | Type | Department | Care Team | Description | +--------+---------+ + + + | 04/26/ | Office | [facility] | Sveta Lawrence MD | Acquired | | 2018 | Visit | [facility] | [address] | hypothyroidism | | | | [address] | [place] | (Primary Dx); | | | | [place] | [address] | HYPERTENSION, BENIGN | | | | [address] | | ESSENTIAL; Heart | | | | [phone] | | burn; Urinary | | | | | | urgency; Prediabetes | +--------+---------+ + + + Social History [...] + + + + | Height | - | - | | + + + + + | Body Mass Index | 29.58 | 01/19/2018 7:51 AM | | | | | PDT | | + + + + + documented in this encounter Patient Instructions Patient Instructions Sveta Lawrence MD - 04/26/2018 3:24 PM PDT Return in about 1 year (around 04/26/2019), or if symptoms worsen or fail to improve, for di abetes, cholesterol,hypothyroidism, hypertension. You will be due for fasting labs before yo ur next office visit. Please have these done 2 to 3 days before your 12 month follow up arlene t. Our lab here at the clinic is open Thursday-Thursday from 7 a.m. to 5:30 p.m. If the lab is f or a fasting blood draw, NO food or caffeine 8-12 hours before the lab draw. If you have any questions, please call us [phone]. Prescription Refill Notice: All prescription refill requests should be made through your pharmacy. Please allow 24-48 business hours to process refill requests. No early refills will be given for controlled substances. Cancellation/Re-Scheduling/Late Arrivals: Please arrive 15 minutes prior to your scheduled appointment time. Arrivals beyond 10-15 mi nutes late will be considered a "no-show" and you may be asked to reschedule. Please notify this office 24 hours prior to cancellation or re-scheduling of your appointme nt. Understanding Fat and Cholesterol Too much cholesterol in your blood can lead to many problems such as blocked arteries. This canlead toheart attack and stroke. One of the best ways to manage heart and blood vesse l disease is to lower your blood cholesterol. Planning meals that are low in saturated fat a nd cholesterol helps reduce the level of cholesterol in your blood. Below are eating tips to help lower your blood cholesterol levels. Eat less fat A healthy goal is to have less than 25% to 35%of your daily calories come from fat. Inste ad of fats, eat more fruits, whole-grains, and vegetables. This also helps control your weig ht, and can even reduce your risk for some cancers. There are different kinds of fats in david ds. Fats can be saturated, unsaturated, or trans fats. The best fats to choose are unsaturat ed fats. But fats are high in calories, so eat even unsaturated fats sparingly. Limit foods high in saturated fats Saturated fats come from animals and certain plants (such as coconut and palm). Eating too much saturated fat can raise your blood cholesterol levels and make your artery problems wor se. Your goal is to eat less saturated fat. Below are some examples of foods that contain lo ts of saturated fat: Fatty cuts of meat (levin, ham, beef) Many pastries, cakes, cookies, and candies Cream, ice cream, sour cream, cheese, and butter, and foods made with them Sauces made with butter or cream Salad dressings with saturated fats Foods that contain palm or coconut oil Choose unsaturated fats Unsaturated fats are usually liquid at room temperature. They are better choices for your h eart than saturated fat. There are two types of unsaturated fats: polyunsaturated fat and mo nounsaturated fat. Aim to replace saturated fats with polyunsaturated or monounsaturated fat s. Polyunsaturated fats are found in corn oil, safflower oil, sunflower oil, and other vege table oils. Monounsaturated fats are found in olive oil, canola oil, and peanut oil. Some margarines and spreads are now made with these oils, too. Avocados are also high in monounsaturated fa t. Of all fats, monounsaturated fats are the least harmful to your heart. Avoid trans fats Like saturated fats, trans fats have been linked to heart disease. Even a small amount can harm your health. Trans fats are found in liquid oils that have been changed to be solid at room temperature. Margarine, which is often made from vegetable oil, is one example. Vegetab le shortening is another. Trans fats are often found in packaged goods. Check ingredients fo r the words hydrogenated or partially hydrogenated. They mean the foods contain trans fat. What about triglycerides? Triglycerides are a type of fat in your blood. Like cholesterol, high levels of triglycerid es can lead to blocked arteries. High triglyceride levels can be reduced 20% to 50% by snyder iting added sugars in your diet, susbstituting healthier fats for saturated and trans fats, getting more physical activity, and losing weight if your are overweight. You may also be ad vised to avoid or limi alcohol. Reading food labels Luckily, most foods now have labels giving you the facts about what you re eating. Readin g food labels helps you make healthy choices. Look for the words highlighted below. Serving Size.This is the amount of food in 1 serving. If you eat larger portions, be s ure to count more of everything: fat, calories, and cholesterol. Total Fat.Tells you how many grams (g) of fat are in 1 serving. Calories from Fat.This tells you the total number of calories from fat in 1 serving( there are 9 calories per gram of fat).Look for foods with the fewest calories from fat. Saturated Fat.Tells you how many grams (g) of saturated fat are in 1 serving. Trans Fat.Tells how many grams (g) of trans fat are in 1 serving. Cholesterol.Tells you how many milligrams (mg) of cholesterol are in 1 serving. Date Last Reviewed: 02/05/201719992443-[address] [employer] [place] [address]. All righ ts reserved. This information is not intended as a substitute for professional medical care. Always follow your healthcare professional's instructions. documented in this encounter Progress Notes Sveta Lawrence MD - 04/26/2018 3:00 PM PDT Subjective: Patient ID: Charo Cifuentes is a 72 y.o. female. Chief Complaint Patient presents with Hypothyroidism 3 month follow up. Hyperlipidemia Hyperglycemia HPI Patient presents in clinic today for a 3 month follow up on thyroid to see how her dose of levothyroxine 100 mcg is working for her. She had labs done on 04/22/2018 at [facility] in [place], [place] and we did get the results. She reports that she has been feeling a lot ness r since upping the dose. She has felt increased energy and lost 12 pounds of weight, she is exercising regularly and taking levothyroxine 100 g daily. Hypothyroidism TSH was done on 04/22/2018= 0.83 (improved from 4.93). She has a normal CBC and CMP, her cholesterol is stable in the last 10 months with an LDL o f 205 mg/dL, Her A1c is 6.6 and she was hepatitis C negative. Pt has hypothyroidism. Taking medications regularly. Pt denies intolerance to temp, tremo r, skin or hair changes, and proximal muscle weakness. Compliance with taking medication is good. Denies side effects. Thyroid Agents Thyroid Hormones Sig levothyroxine (SYNTHROID) 100 mcg tablet Take 1 tablet by mouth every morning (before mohit kfast). Past Medical History: Diagnosis Date Arthritis Cancer (HCC) 1998 Melanoma Cataract 04/2017 Encounter for blood transfusion 1999 Environmental allergies Gastrointestinal ulcer 1999 GERD (gastroesophageal reflux disease) Glaucoma Hyperlipidemia Hypertension Thyroid disease Past Surgical History: Procedure Laterality Date COLONOSCOPY N/A 11/23/2017 Procedure: COLONOSCOPY; Surgeon: Kye Rangel MD; Location: [facility] EYE SURGERY GASTRIC BYPASS SURGERY 1985 SHOULDER SURGERY Left 2013 TONSILLECTOMY TUBAL LIGATION UPPER GASTROINTESTINAL ENDOSCOPY Family [...] every morning (before b reakfast). 90 tablet 3 lisinopril (PRINIVIL,ZESTRIL) 2.5 MG tablet Take 1 tablet by mouth Daily. 90 tablet 3 multivitamin (THERAGRAN) per tablet daily NAPROXEN PO TABS Take/use as needed. omeprazole (PRILOSEC) 20 mg capsule Take 1 capsule by mouth Daily. 90 capsule 3 oxybutynin (DITROPAN XL) 5 mg 24 hr tablet Take 1 tablet by mouth Daily. 30 tablet 2 No current facility-administered medications for this visit. Review of Systems Constitutional: Negative. Negative for fever and malaise/fatigue. HENT: Negative. Negative for congestion, ear discharge, ear pain, sinus pain, sore throat and tinnitus. Eyes: Negative. Negative for blurred vision and pain. Respiratory: Negative. Negative for cough and shortness of breath. Cardiovascular: Negative. Negative for chest pain, palpitations and leg swelling. Gastrointestinal: Negative. Negative for abdominal pain, constipation, diarrhea, heartburn , nausea and vomiting. Genitourinary: Negative. Negative for dysuria. Musculoskeletal: Negative. Negative for back pain, joint pain and myalgias. Skin: Negative. Negative for rash. Neurological: Negative. Negative for dizziness, tingling, weakness and headaches. Psychiatric/Behavioral: Negative. Negative for depression. The patient is not nervous/anxi ous and does not have insomnia. Objective: BP 130/86 | Pulse 60 | Temp 36.5 C (97.7 F) (Temporal) | Resp 18 | Wt 75.8 kg (167 lb) | SpO2 99% | ? No | BMI 29.58 kg/m Physical Exam General Appearance: Alert, cooperative, [...] 1. Acquired hypothyroidism (Primary) Assessment & Plan: We will continue the levothyroxine 100 mcg since this seems to be keeping TSH under control . Lab work reviewed today. -Thyroid levels are stable. -Plan on yearly TSH labs -Continue your current dose of levothyroxine Orders: - Levothyroxine Sodium; Take 1 tablet by mouth every morning (before breakfast). Dispe nse: 90 tablet; Refill: 3 - TSH; Future; Expected date: 04/26/2019 2. HYPERTENSION, BENIGN ESSENTIAL - Lisinopril; Take 1 tablet by mouth Daily. Dispense: 90 tablet; Refill: 3 - CBC with Differential; Future; Expected date: 04/26/2019 - Comprehensive Metabolic Panel; Future; Expected date: 04/26/2019 - Lipid Panel; Future; Expected date: 04/26/2019 3. Heart burn - Omeprazole; Take 1 capsule by mouth Daily. Dispense: 90 capsule; Refill: 3 4. Urinary urgency Assessment & Plan: Did not turkey picker Myrbetriq 25 mg due to it being so expensive. We will give you an prescription for Oxybutynin 5 mg tablets. If this is too expensive then you do not have to pick it up. Orders: - Oxybutynin Chloride ER; Take 1 tablet by mouth Daily. Dispense: 30 tablet; Refill: 2 5. Prediabetes - Hemoglobin A1C; Future; Expected date: 04/26/2019 The patient was satisfied with the care received and voiced understanding of the issues dis cussed and the plan. Return in about 1 year (around 04/26/2019), or if symptoms worsen or fail to improve, for di abetes, cholesterol,hypothyroidism, hypertension. Electronically signed by Sveta Lawrence MD Portions of this report were transcribed using [employer] voice recognition soft alanis. Although effort was made in correcting the errors; grammatical and sound alike errors may still be present. documented in this enc ounter Miscellaneous Notes Assessment & Plan Note - Paemla Sahni CMA - 04/26/2018 3:16 PM PDTAssociated Proble m(s): Urinary urgencyDid not turkey picker Myrbetriq 25 mg due to it being so expensive. We will give you an prescription for Oxybutynin 5 mg tablets. If this is too expensive then you do not have to pick it up. ssessment & Plan Note - Pamela Sahni CMA - 04/26/2018 2:43 PM PDTAssoc iated Problem(s): HYPOTHYROIDISMWe will continue the levothyroxine 100 mcg since this seems to be keeping TSH under control. Lab work reviewed today. -Thyroid levels are stable. -Plan on yearly TSH labs -Continue your current dose of levothyroxine documented in thi s encounter Plan of Treatment + +------+--------+ + + | Name | Type | Priori | Associated Diagnoses | Order Schedule | | | | ty | | | + +------+--------+ + + | CBC with | Lab | Routin | HYPERTENSION, | Expected: | | Differential | | e | BENIGN ESSENTIAL | 04/26/2019, Expires: | | | | | | 10/27/2019 | + +------+--------+ + + | Comprehensive | Lab | Routin | HYPERTENSION, | Expected: | | Metabolic Panel | | e | BENIGN ESSENTIAL | 04/26/2019, Expires: | | | | | | 10/27/2019 | + +------+--------+ + + | Lipid Panel | Lab | Routin | HYPERTENSION, | Expected: | | | | e | BENIGN ESSENTIAL | 04/26/2019, Expires: | | | | | | 10/27/2019 | + +------+--------+ + + | TSH | Lab | Routin | Acquired | Expected: | | | | e | hypothyroidism | 04/26/2019, Expires: | | | | | | 10/27/2019 | + +------+--------+ + + | Hemoglobin A1C | Lab | Routin | Prediabetes | Expected: | | | | e | | 04/26/2019, Expires: | | | | | | 10/27/2019 | + +------+--------+ + + documented as of this encounter Visit Diagnoses + + | Diagnosis | + + | Acquired hypothyroidism - Primary Unspecified hypothyroidism | + + | HYPERTENSION, BENIGN ESSENTIAL Essential hypertension, benign | + + | Heart burn Heartburn | + + | Urinary urgency Urgency of urination | + + | Prediabetes Other abnormal glucose | + + documented in this encounter
--- OUTSIDE RECORDS SUMMARY | ~2020-06-09 | XMS | Encounter Summary ---
Demographics + + + | Address | [address] | | | [place] [address] | + + + | Home Phone | | + + + | Preferred Language | Unknown | + + + | Marital Status | Single | + + + | Tenriism Affiliation | Unknown | + + + | Race | Unknown | + + + | Ethnic Group | Not or | + + + Author + + + | Author | [facility] | + + + | Organization | [facility] | + + + | Address | Unknown | + + + | Phone | Unavailable | + + + Support + + +---------+ + | Name | Relationship | Address | Phone | + + +---------+ + | Fahad Lopez | ECON | Unknown | | + + +---------+ + Care Team Providers + +------+ + | Care Email Operations Manager Name | Role | Phone | + +------+ + PCP | Unavailable | + +------+ + Encounter Details +--------+ + + + + | Date | Type | Department | Care Team | Description | +--------+ + + + + | 04/13/ | Office | General Internal | Note, Outpatient | Progress Note | | 1996 | Visit-Trans | Medicine [address] | Clinic | | | | [place] | [facility] | | | | | | Mailcode: [id number] | | | | | | Outpatient Clinic | | | | | | [facility] [address] | | | | | [place], [place] | | | | | | [address] | | | | | | [phone] | | | +--------+ + + + [...] as of this encounter Progress Notes Interface, Sports Medicine Coordinator In - 10/27/2006 5:12 AM [facility] DATE: 04/13/97 [facility] SUBJECTIVE: Sarah Cifuentes comes back one week after facial dermabrasion. The Vigilon dressing has come off. OBJECTIVE: The area has healed nicely. There is the expected amount of erythema. ASSESSMENT: I cautioned her about sun exposure and discussed with her about makeup and waxing her face which she wanted to do. PLAN: I told her I would like to see her back in three months for follow-up. Incidentally, she wanted a series of pictures of her dermabrasion and I do not believe I took any so unfortunately I do not have any to give to her. Sammy Boggs M.D. Coffee Shop Attendant, Facial Plastic and Reconstructive Surgery, Department of Otolaryngology Head and Neck Surgery MAI/aruna documented in this encounter Plan of Treatment Not on filedocumented as of this encounter Visit Diagnoses Not on filedocumented in this encounter"
--- OUTSIDE RECORDS SUMMARY | ~2020-06-09 | XMS | Encounter Summary ---
Demographics + + + | Address | [address] | | | [place] [address] | + + + | Home Phone | | + + + | Preferred Language | Unknown | + + + | Marital Status | | + + + | Holiness Affiliation | Unknown | + + + | Race | White | + + + | Ethnic Group | Unknown | + + + Author + + + | Author | [facility] | | | and [place] | + + + | Organization | [facility] | | | and [...] [place] | | | | | [address] | | + + + + + | Angeli Burdick | ECON | [address] | | | | | [place] | | | | | [address] | | + + + + + Care Team Providers + +------+ + | Care Pharmacist Apprentice Name | Role | Phone | + +------+ + | Sveta Lawrence MD | PCP | | + +------+ + Encounter Details +--------+ + + + + | Date | Type | Department | Care Team | Description | +--------+ + + + + | 11/23/ | Hospital | [facility] | Leeann Bailey | History of colon | | 2018 | Encounter | MED CTR MP INTRA OP | MD Garrett [address] | polyps | | | | [address] | [address] [facility] | | | | | [place], [place] | [place] [address] | | | | | [address] | [phone] | | | | | [phone] | | | +--------+ + + + [...] + + + | Blood Pressure | 112/75 | 11/23/2017 11:00 AM | | | | | PDT | | + + + + + | Pulse | 66 | 11/23/2017 11:15 AM | | | | | PDT | | + + + + + | Temperature | 36.3 C (97.3 F) | 11/23/2017 8:35 AM | | | | | PDT | | + + + + + | Respiratory Rate | 14 | 11/23/2017 11:00 AM | | | | | PDT | | + + + + + | Oxygen Saturation | 100% | 11/23/2017 11:15 AM | | | | | PDT | | + + + + + | Inhaled Oxygen | - | - | | | Concentration | | | | + + + + + | Weight | 78.7 kg (173 lb 8 | 11/23/2017 8:35 AM | | | | oz) | PDT | | + + + + + | Height | 160 cm (5' 3") | 11/23/2017 8:35 AM | | | | | PDT | | + + + + + | Body Mass Index | 30.73 | 11/23/2017 8:35 AM | | | | | PDT | | + + + + + documented in this encounter Medications at Time of Discharge + + + +---------+ + + | Medication | Sig | Dispensed | Refills | Start | End Date | | | | | | Date | | + + + +---------+ + + | | Apply to eye. | | 0 | | | | Brinzolamide-Brimoni | | | | | | | dine (SIMBRINZA) | | | | | | | 1-0.2 % SUSP | | | | | | + + + +---------+ + + | Calcium | TABS 1200 mg per | | 0 | 05/19/20 | | | Carbonate-Vitamin D | day | | | 12 | | | (CALCIUM + D PO) | | | | | | + + + +---------+ + + | Cobalamine | Place under the | | 0 | | | | Combinations (B-12) | tongue Daily. | | | | | | 1000-400 MCG SUBL | | | | | | + + + +---------+ + + | multivitamin | daily | | 0 | 05/19/20 | | | (THERAGRAN) per | | | | 12 | | | tablet | | | | | | + + + +---------+ + + | NAPROXEN PO | TABS Take/use as | | 0 | 05/19/20 | | | | needed. | | | 12 | | + + + +---------+ + + | levothyroxine | Take 1 tablet by | 90 | 2 | 07/31/20 | | | (SYNTHROID) 88 mcg | mouth every morning | tablet | | 17 | 8 | | tablet | (before breakfast). | | | | | + + + +---------+ + + | lisinopril | Take 1 tablet by | 90 | 3 | 06/25/20 | | | (PRINIVIL,ZESTRIL) | mouth Daily. | tablet | | 17 | 8 | | 2.5 MG | | | | | | | tabletIndications: | | | | | | | Essential | | | | | | | hypertension, benign | | | | | | + + + +---------+ + + | omeprazole | Take 1 capsule by | 90 | 3 | 06/25/20 | | | (PRILOSEC) 20 mg | mouth Daily. | capsule | | 17 | 8 | | capsule | | | | | | + + + +---------+ + + documented as of this encounter H&P Notes Leeann Bailey MD - 11/23/2017 10:11 AM PDT PRE-ENDOSCOPY HISTORY AND PRE-SEDATION ASSESSMENT PATIENT NAME: Charo Cifuentes : 1945 TODAY'S DATE: 11/23/2017 PLANNED PROCEDURE: colonoscopy PERTINENT HISTORY/INDICATION FOR PROCEDURE: Charo Cifuentes is a 71 y.o. female who is undergoing endoscopy for polyp surveillance, last colo 10 years ago with subcm polyp. PAST HISTORY: Past Medical History: Diagnosis Date Arthritis Cancer (HCC) 1999 Melanoma Cataract 04/2017 Encounter for blood transfusion 1999 Environmental allergies Gastrointestinal ulcer 1999 GERD (gastroesophageal reflux disease) Glaucoma Hyperlipidemia Hypertension Thyroid disease PROBLEM LIST: Patient Active Problem List Diagnosis ANEMIA, IRON DEFICIENCY HYPERTENSION, BENIGN ESSENTIAL HYPOTHYROIDISM G E R D Hyperglycemia Bariatric surgery status PAST SURGICAL HISTORY Past Surgical History: Procedure Laterality Date COLONOSCOPY EYE SURGERY GASTRIC BYPASS SURGERY 1985 SHOULDER SURGERY Left 2014 TONSILLECTOMY TUBAL LIGATION UPPER GASTROINTESTINAL ENDOSCOPY HOME MEDS: No current facility-administered medications on file prior to encounter. Current Outpatient Prescriptions on File Prior to Encounter Medication Sig Dispense Refill Brinzolamide-Brimonidine (SIMBRINZA) 1-0.2 % SUSP Apply to eye. Calcium Carbonate-Vitamin D (CALCIUM + D PO) TABS 1200 mg per day Cobalamine Combinations (B-12) 1000-[address] under the tongue Daily. levothyroxine (SYNTHROID) 88 mcg tablet Take 1 tablet by mouth every morning (before br eakfast). 90 tablet 2 lisinopril (PRINIVIL,ZESTRIL) 2.5 MG tablet Take 1 tablet by mouth Daily. 90 tablet 3 multivitamin (THERAGRAN) per tablet daily NAPROXEN PO TABS Take/use as needed. omeprazole (PRILOSEC) 20 mg capsule Take 1 capsule by mouth Daily. 90 capsule 3 ALLERGIES Allergies Allergen Reactions Sulfa Antibiotics Shortness Of Breath and Rash Had a rash on chest, and difficulty breathing. Codeine Sulfate Other (See Comments) Makes me angry, Hydrocodone Other (See Comments) Made me angry. Mallampati Class 2 (upper half of tonsil fossa) [place] Society of Anesthesia Grade:ASA 2 - A patient with mild systemic disease Sedation Plan:Moderate sedation EXAMINATION: BP 150/78 | Pulse 75 | Temp 36.3 C (97.3 F) (Temporal) | Resp 16 | Ht 1.6 m (5' 3") | Wt 78.7 kg (173 lb 8 oz) | SpO2 100% | BMI 30.73 kg/m General: Alert and oriented Throat: Normal Lungs: Clear Heart: Regular rate and rhythm with out significant murmur Abdomen: flat, normal bowel sounds. Soft, nontender 1. Available medical records have been reviewed. 2. Medication list reviewed. IMPRESSION: Patient appropriate for endoscopy. PLAN: 1. Proceed with procedure as stated above with moderate sedation/analgesia 2. Procedure, indications, risks and alternatives explained to patient/family and they agre ed to proceed and consent was signed. 3. Patient will be reevaluated immediately (1-2 minutes) before sedation administration and approved for the plan as stated above. Electronically Signed by: Leeann Bailey MD 11/23/2017 [facility] VERIFICATION OF CONSENT (PARQ) The patient was counseled regarding the procedure, its indications, risks, potential compli cations and alternatives. Any questions were answered. Consent was obtained. Leeann Bailey MD, 11/23/2017 10:11 Portions of this chart may have been created with [email or web address] voice recognition software. Occasi onal wrong-word or sound-alike substitutions may have occurred due to the inherent snyder itations of voice recognition software. Please read the chart carefully and recognize, using context, where these substitutions have occurred documented in thi s encounter Miscellaneous Notes D-C Instructions Provation - Leeann Bailey MD - 11/23/2017 9:54 AM PDTDischarge Ins tructions for Colonoscopy Exams Patient: Charo Cifuentes : 1945 Acct: [id number] Exam Date: Thursday, November 23, 2017 Doctor: LEEANN BAILEY MD You have had an examination of the gastrointestinal tract. The chances of difficulty following this procedure are minimal. The following instructions will assist you in your recovery. ACTIVITIES: Rest quietly until sedation wears off. DO NOT drive a motor vehicle or operate machinery for 24 hours after sedation. Be cautious making critical decisions for 24 hours after sedation. DIET: If throat has been sprayed, do not eat or drink for 1 hour after. Start with a swallow of tap water, if you experience any lack of sensation in your throat, wait another 30 - 60 minutes and start with water again. Once swallowing has returned to normal you may resume your usual diet unless otherwise instructed by your physician. DISCOMFORT: If you had a bowel exam, you may have some abdominal discomfort from the air put into your bowel during the exam. Moving about will help you pass this air. Sometimes the medications given to you during the exam can aggravate the veins. The chemical irritation can cause inflammation or pain along the arm with redness, swelling and warmth. This does not mean there is an infection. You can treat the affected area by applying warm,wet compresses (towels) 4 times a day for 20 minutes at a time until inflammation is resolved. REPORT TO YOUR DOCTOR: Unusual abdominal pain Chest pain or unusual shortness of breath Shoulder pain Nausea, vomiting Fever over 100 degrees, chills Signs of rectal bleeding (red or black stools) Any concern you have resulting from procedure You may reach your physician at . If unable to reach your physician, call [facility] Emergency Department at Ext. [phone] Your doctor recommends these additional instructions: Your physician has recommended a repeat colonoscopy in 10 years for screening purposes. The findings and recommendations have been discussed with you. These instructions have been explained to the patient and/or escort. A copy has been given to the patient/escort. Nurse Signature Patient Signature Escort Signature Date LEEANN BAILEY MD 11/23/2017 10:38:28 AM This report has been signed electronically. documented in this encounter Plan of Treatment Not on filedocumented as of this encounter Procedures + +--------+ + + + | Procedure Name | Priori | Date/Time | Associated Diagnosis | Comments | | | ty | | | | + +--------+ + + + | COLONOSCOPY | | 11/23/2017 | Hx of colonic | | | | | 10:09 AM | polyps (Z86.010) | | | | | PDT | | | + +--------+ + + + | COLONOSCOPY | Routin | 11/23/2017 | | Results for this | | | e | 9:54 AM | | procedure are in the | | | | PDT | | results section. | + +--------+ + + + documented in this encounter Results COLONOSCOPY (11/23/2017 9:54 AM PDT) + + | Specimen | + + | | + + + + --+ | Narrative | Performed A t | + + --+ | | [facility] | | GastroenterologyPatient Name: Charo LincolnesProcedure Date: 11/23/2017 | [facility] | | 9:54 AMMRN: [id number] #: [id number] of : | | | 5Admit Type: AmbulatoryAge: 71Room: [facility] 02Gender: FemaleNote | | | Status: FinalizedAttending MD: LEEANN BAILEY , [facility]cedure: | | | ColonoscopyIndications: Surveillance: Personal | | | history of colonic polyps (unknown | | | histology) on last colonoscopy more than 5 years agoProviders: | | | LEEANN BAILEY MD, Lety Davis RN, Lisa | | | JABARI Kraus, Jim Blancas, CMAReferring MD: | | | Sveta Lawrence MD (Referring MD)Medicines: Fentanyl 50 | | | micrograms IV, Midazolam 3 mg IVComplications: No immediate | | | complications.Procedure: Pre-Anesthesia Assessment: - - | | | Prior to the procedure, a History and Physical was performed, and | | | patient medications and allergies were reviewed. The patient is | | | competent. The risks and benefits of the procedure and the | | | sedation options and risks were discussed with the patient. All | | | questions were answered and informed consent was obtained. | | | Patient identification and proposed procedure were verified by | | | the physician and the nurse in the pre-procedure area in the | | | procedure room. Mental Status Examination: alert and oriented. | | | Airway Examination: Mallampati Class II (the uvula but not | | | tonsillar pillars visualized). Respiratory Examination: clear to | | | auscultation. CV Examination: normal. Prophylactic Antibiotics: The | | | patient does not require prophylactic antibiotics. Prior | | | Anticoagulants: The patient has taken no previous anticoagulant | | | or antiplatelet agents. ASA Grade Assessment: II - A patient | | | with mild systemic disease. After reviewing the risks and | | | benefits, the patient was deemed in satisfactory condition to | | | undergo the procedure. The anesthesia plan was to use moderate | | | sedation / analgesia (conscious sedation). Immediately prior to | | | administration of medications, the patient was re-assessed for | | | adequacy to receive sedatives. The heart rate, respiratory | | | rate, oxygen saturations, blood pressure, adequacy of pulmonary | | | ventilation, and response to care were monitored throughout | | | the procedure. The physical status of the patient was | | | re-assessed after the procedure. After I obtained informed | | | consent, the scope was passed under direct vision. Throughout | | | the procedure, the patient's blood pressure, pulse, and oxygen | | | saturations were monitored continuously. The Colonoscope was | | | introduced through the anus and advanced to the terminal ileum. The | | | colonoscopy was performed without difficulty. The patient | | | tolerated the procedure well. The quality of the bowel | | | preparation was evaluated using the BBPS ([place] Bowel | | | Preparation Scale) with scores of: Right Colon = 3 (entire | | | mucosa seen well with no residual staining, small fragments of | | | stool or opaque liquid), Transverse Colon = 3 (entire mucosa seen well | | | with no residual staining, small fragments of stool or opaque | | | liquid) and Left Colon = 3 (entire mucosa seen well with no | | | residual staining, small fragments of stool or opaque liquid). | | | The total BBPS score equals 9.Findings: The perianal and | | | digital rectal examinations were normal. The terminal ileum | | | appeared normal. A few small and large-mouthed diverticula were | | | found in the sigmoid colon. No other significant | | | abnormalities were identified in a careful examination of the | | | remainder of the colon. The retroflexed view of the distal | | | rectum and anal verge was normal and showed no anal or rectal | | | abnormalities.Moderate Sedation: Moderate (conscious) sedation | | | was administered by the endoscopy nurse and supervised by the | | | endoscopist. The patient's oxygen saturation, heart rate, blood | | | pressure and response to care were monitored. Total physician | | | intraservice time was 20 minutes.Impression: - The examined | | | portion of the ileum was normal. - Diverticulosis in the sigmoid | | | colon. - The distal rectum and anal verge are normal on | | | retroflexion view. - No specimens collected.Recommendation: | | | - The patient will be observed post-procedure, until all discharge | | | criteria are met. - Repeat colonoscopy in 10 years for | | | screening purposes depending on comorbidities at that time. Can | | | consider stopping CRC screening after age 75 . - The | | | findings and recommendations were discussed with the patient.LEEANN | | | GARRETT BAILEY MD11/23/2017 10:38:28 AMThis report has been signed | | | electronically.Number of Addenda: 0Note Initiated On: 11/23/2017 9:54 | | | AMScope Withdrawal Time: 0 hours 7 minutes 55 seconds Total Procedure | | | Duration: 0 hours 16 minutes 8 seconds Scope In: 10:16:36 AMScope Out: | | | 10:32:44 AM , [address] | | | [place] [address] | | | - The patient will be observed post-procedure, until all discharge | | | criteria are met. | | | - Repeat colonoscopy in 10 years for screening purposes depending on | | | comorbidities at that time. Can consider stopping CRC screening after | | | age 75 . | | | - The findings and recommendations were discussed with the patient. | | |LEEANN BAILEY MD | | |11/23/2017 10:38:28 AM | | |This report has been signed electronically. | | |Number of Addenda: 0 | | |Note Initiated On: 11/23/2017 9:54 AM | | |Scope Withdrawal Time: 0 hours 7 minutes 55 seconds | | |Total Procedure Duration: 0 hours 16 minutes 8 seconds | | |Scope In: 10:16:36 AM | | |Scope Out: 10:32:44 AM | | | , [address] [place], [place] | | | [address] | | + + --+ + +---------+ + + | Performing | Address | City/State/Zipcode | Phone Number | | Organization | | | | + +---------+ + + | [facility] [place] | | | | + +---------+ + + documented in this encounter Visit Diagnoses + + | Diagnosis | + + | History of colon polyps Personal history of colonic polyps | + + documented in this encounter Administered Medications + +--------+ +--------+------+------+ | Medication Order | MAR | Action | Dose | Rate | Site | | | Action | Date | | | | + +--------+ +--------+------+------+ | fentaNYL (PF) injection PRN, | Given | 11/24/19 | 50 mcg | | | | Starting Thu11/23/17 at 1015 | | 18 10:15 | | | | | | | AM PDT | | | | + +--------+ +--------+------+------+ + +---+ | | | + +---+ | lactated ringers (LR) infusion | | | at 100 mL/hr, Intravenous, | | | CONTINUOUS, Starting 11/23/17 | | | at 0900, Pre-op | | + +---+ | | | + +---+ + +-------+ +------+---+---+ | midazolam (VERSED) 5 mg/mL | Given | 11/24/19 | 3 mg | | | | injection PRN, Starting Mon | | 18 10:13 | | | | | 11/23/17 at 1013 | | AM PDT | | | | + +-------+ +------+---+---+ + +---+ | | | + +---+ | ondansetron (ZOFRAN) injection | | | 4 mg 4 mg, Intravenous, ONCE | | | PRN, Nausea, Vomiting, Starting | | | 11/23/17 at 0837, For 1 dose, | | | Post-op/Phase II | | + +---+ | | | + +---+ documented in this encounter
--- OUTSIDE RECORDS SUMMARY | ~2020-06-09 | XMS | Encounter Summary ---
Demographics + + + | Address | [address] | | | [place] [address] | + + + | Home Phone | | + + + | Preferred Language | Unknown | + + + | Marital Status | | + + + | Scientology Affiliation | Unknown | + + + | Race | White | + + + | Ethnic Group | Unknown | + + + Author + + + | Author | [facility] | | | and [place] | + + + | Organization | [facility] | | | [...] [place] | | | | | [address] | | + + + + + | Angeli Burdick | ECON | [address] | | | | | [place] | | | | | [address] | | + + + + + Care Team Providers + +------+ + | Care Customer Support Representative Name | Role | Phone | + +------+ + | Sveta Lawrence MD | PCP | | + +------+ + Encounter Details +--------+---------+ + + + | Date | Type | Department | Care Team | Description | +--------+---------+ + + + | 11/23/ | Surgery | [facility] | Leeann Bailey | COLONOSCOPY | | 2018 | | MED CTR MP INTRA OP | MD Garrett [address] | | | | | [address] | [facility] | | | | | [place] | [facility] [place] [address] | | | | | [address] | [phone] | | | | | [phone] | | | +--------+---------+ + + + Social History [...] + + + | Blood Pressure | 123/91 | 11/23/2017 10:22 AM | | | | | PDT | | + + + + + | Pulse | 73 | 11/23/2017 10:22 AM | | | | | PDT | | + + + + + | Temperature | 36.3 C (97.3 F) | 11/23/2017 8:35 AM | | | | | PDT | | + + + + + | Respiratory Rate | 27 | 11/23/2017 10:22 AM | | | | | PDT | | + + + + + | Oxygen Saturation | 99% | 11/23/2017 10:22 AM | | | | | PDT [...] Class 2 (upper half of tonsil fossa) [place] Society of Anesthesia Grade:ASA 2 - A [...] Electronically Signed by: Leeann Bailey MD 11/23/2017 [facility] VERIFICATION OF CONSENT (PARQ) The patient was counseled regarding the procedure, its indications, risks, potential compli cations and alternatives. Any questions were answered. Consent was obtained. Leeann Bailey MD, 11/23/2017 10:11 [facility] Portions of this chart may have been created with [employer] voice recognition software. Occasi onal wrong-word or [...] Exams Patient: Charo Cifuentes : 1945 Acct: [id number] Exam Date: Thursday, November 23, 2017 Doctor: [...] If unable to reach your physician, call [facility] Emergency Department at Ext. [phone] Your doctor [...] | [facility] | | GastroenterologyPatient Name: Charo Fayrocedure Date: 11/23/2017 | [facility] | | 9:54 AMMRN: [id number] #: [id number] of : | | | 5Admit Type: AmbulatoryAge: 71Room: [facility]Gender: FemaleNote | | | Status: FinalizedAttending MD: LEEANN BAILEY [facility]: | | | ColonoscopyIndications: Surveillance: Personal | [...] | preparation was evaluated using the BBPS ([place] Bowel | | | Preparation Scale) with [...] AMScope Out: | | | 10:32:44 AM [facility], [address] | | | [place] [address] | | | - The patient will [...] |Scope Out: 10:32:44 AM | | | [facility], [address] [place], [place] | | | [address] | | + + --+ + +---------+ + + | Performing | Address | City/State/Zipcode | Phone Number | | Organization | | | | + +---------+ + + | [facility] | | | | + +---------+ + + documented in this encounter Visit Diagnoses Not on filedocumented in this encounter Administered Medications + +--------+ +--------+------+------+ | Medication Order | MAR | Action | Dose | Rate | Site | | | Action | Date | | | | + +--------+ +--------+------+------+ | fentaNYL (PF) injection PRN, | Given | 11/24/19 | 50 mcg | | | | Starting 11/23/17 at 1015 | | 18 10:15 | [...]
--- OUTSIDE RECORDS SUMMARY | ~2020-06-09 | XMS | Encounter Summary ---
Demographics + + + | Address | [address] | | | [place] [address] | + + + | Home Phone | | + + + | Preferred Language | Unknown | + + + | Marital Status | | + + + | Restorationism Affiliation | Unknown | + + + [...] [place] | | | | | [address] | | + + + + + | Angeli Burdick | ECON | [address] | | | | | [place] | | | | | [address] | | + + + + + Care Team Providers + +------+ + | Care Counter Top Maker Name | Role | Phone | + +------+ + PCP | Unavailable | + +------+ + Encounter Details +--------+ + + + + | Date | Type | Department | Care Team | Description | +--------+ + + + + | 11/28/ | Hospital | [facility] | | | | 2007 | Encounter | MED CTR XRAY [address] | | | | | | [address] | | | | | | [place] [address] | | | | | | [phone] | | | +--------+ + + + [...]
--- OUTSIDE RECORDS SUMMARY | ~2020-06-09 | XMS | Encounter Summary ---
Demographics + + + | Address | [address] | | | [place] [address] | + + + | Home Phone | | + + + | Preferred Language | Unknown | + + + | Marital Status | Single | + + + | Gnosticism Affiliation | Unknown | + + + | Race | Unknown | + + + | Ethnic Group | Not or | + + + Author + + + | Author | [facility] | + + + | Organization | [facility] | + + + | Address | Unknown | + + + | Phone | Unavailable | + + + Support + + +---------+ + | Name | Relationship | Address | Phone | + + +---------+ + | Fahad Lopez | ECON | Unknown | | + + +---------+ + Care Team Providers + +------+ + | Care Party Host Name | Role | Phone | + +------+ + PCP | Unavailable | + +------+ + Encounter Details +--------+ + + + + | Date | Type | Department | Care Team | Description | +--------+ + + + + | 04/04/ | Office | General Internal | Note, Outpatient | Progress Note | | 1996 | Visit-Trans | Medicine [address] | Clinic | | | | [place] | Addy Miller | | | | | | Mailcode: [id number] | | | | | | Outpatient Clinic | | | | | | [facility], [address] | | | | | [place], [place] | | | | | | [address] | | | | | | [phone] | | | +--------+ + + + [...] as of this encounter Progress Notes Interface, Dye Jig Operator In - 10/27/2006 5:12 AM PST CLINIC DATE: 04/04/97 [facility] SUBJECTIVE: Emily Cifuentes comes in today for her dermabrasion which we performed. ASSESSMENT AND PLAN: The patient tolerated this procedure well and will be followed up next week. Sammy Boggs M.D. Sap Bw Architect, Facial Plastic and Reconstructive Surgery Department of Otolaryngology Head and Neck Surgery MAI/justice documented in this encounter Plan of Treatment Not on filedocumented as of this encounter Visit Diagnoses Not on filedocumented in this encounter"
--- OUTSIDE RECORDS SUMMARY | ~2020-06-09 | XMS | Encounter Summary ---
Demographics + + + | Address | [address] | | | [place] [address] | + + + | Home Phone | | + + + | Preferred Language | Unknown | + + + | Marital Status | Single | + + + | Taoist Affiliation | Unknown | + + + | Race | Unknown | + + + | Ethnic Group | Not or | + + + Author + + + | Author | [facility] | + + + | Organization | [facility] | + + + | Address | Unknown | + + + | Phone | Unavailable | + + + Support + + +---------+ + | Name | Relationship | Address | Phone | + + +---------+ + | Fahad Lopez | ECON | Unknown | | + + +---------+ + Care Team Providers + +------+ + | Care Associate Software Developer Name | Role | Phone | + +------+ + PCP | Unavailable | + +------+ + Encounter Details +--------+ + + + + | Date | Type | Department | Care Team | Description | +--------+ + + + + | 07/17/ | Office | General Internal | Note, Outpatient | Progress Note | | 1996 | Visit-Trans | Medicine [address] | Clinic | | | | [place] | [facility] | | | | | | Mailcode: [id number] | | | | | | Outpatient Clinic | | | | | | [facility], [address] | | | | | | [place], [place] | | | | | | [address] | | | | | | [phone] | | | +--------+ + + + [...] as of this encounter Progress Notes Interface, Rn Recruitment In - 10/18/2006 3:06 AM PST CLINIC DATE: 07/17/97 [facility] Charo Cifuentes returns to clinic today, three months after her dermabrasion. Everything has healed nicely and the area, although slightly erythematous, is nicely flat. She has a small area of firmness right at the anchoring point of the Rhombic flap, which is slightly firm. The dog ear has settled down nicely. I took some pictures of the patient today. We briefly discussed upper lid blepharoplasties and I told her that this would be a simple procedure to do. She is coming back to see me in January of next year for follow-up at one year. At that time, if the standing cutaneous cone is persistent, I will remove it and I may do a clinic upper lid blepharoplasty for her as well. Sammy Boggs M.D. Loom Overhauler, Facial Plastic and Reconstructive Surgery, Department of Otolaryngology Head and Neck Surgery MAI/kerri documented in this encounter Plan of Treatment Not on filedocumented as of this encounter Visit Diagnoses Not on filedocumented in this encounter"
--- OUTSIDE RECORDS SUMMARY | ~2020-06-09 | XMS | Encounter Summary ---
Demographics + + + | Address | [address] | | | [place] [address] | + + + | Home Phone | | + + + | Preferred Language | Unknown | + + + | Marital Status | | + + + | Amish Affiliation | Unknown | + + + | Race | White | + + + | Ethnic Group | Unknown | + + + Author + + + | Author | [facility] | | | and [place] | + + + | Organization | [facility] | | [...] [place] | | | | | [address] | | + + + + + | Angeli Burdick | ECON | [address] | | | | | [place] | | | | | [address] | | + + + + + Care Team Providers + +------+ + | Care Wafer Polishing Worker Name | Role | Phone | + +------+ + | Sveta Lawrence MD | PCP | | + +------+ + Encounter Details +--------+---------+ + + + | Date | Type | Department | Care Team | Description | +--------+---------+ + + + | 08/25/ | E-Visit | [facility] | Sveta Lawrence MD | Test Result Question | | 2017 | | [facility] | [address] | | | | | [address] | [place] | | | | | [place], [place] | [address] | | | | | [address] | | | | | | [phone] | | | +--------+---------+ + + + [...] + | Diagnosis | + + | Medication dose decreased - Primary | + + documented in this encounter"
--- OUTSIDE RECORDS SUMMARY | ~2020-06-09 | XMS | Encounter Summary ---
Demographics + + + | Address | [address] | | | [place] [address] | + + + | Home Phone | | + + + | Preferred Language | Unknown | + + + | Marital Status | Single | + + + | Cheondoism Affiliation | Unknown | + + + | Race | Unknown | + + + | Ethnic Group | Not or | + + + Author + + + | Author | [facility] | + + + | Organization | [facility] | + + + | Address | Unknown | + + + | Phone | Unavailable | + + + Support + + +---------+ + | Name | Relationship | Address | Phone | + + +---------+ + | Fahad Lopez | ECON | Unknown | | + + +---------+ + Care Team Providers + +------+ + | Care Utility System Repairer Name | Role | Phone | + +------+ + PCP | Unavailable | + +------+ + Encounter Details +--------+ + + + + | Date | Type | Department | Care Team | Description | +--------+ + + + + | 02/12/ | Office | General Internal | Note, Outpatient | Progress Note | | 1997 | Visit-Trans | Medicine [address] | Clinic | | | | [place] | [facility] | | | | | | Mailcode: [id number] | | | | | | Outpatient Clinic | | | | | | [facility], [address] | | | | | | [place], [place] | | | | | | [address] | | | | | | [phone] | | | +--------+ + + + [...] as of this encounter Progress Notes Interface, Magazine Hand In - 09/26/2006 8:00 AM [facility] CLINIC DATE: 02/12/98 FACIAL [facility]GERY CLINIC Sarah Cifuentes returns one year after her facial reconstruction. Everything looks quite good overall, and I am very pleased, as is she. She has an area of still firm scar tissue in one of the closure sites. After obtaining some photographs of her face, I went ahead and infiltrated 1/10 cc of Kenalog into the region. I instructed her to massage that area for five minutes at a time, three times a day for the next month, and told her to expect things to soften up. I told her I would like to follow her back in maybe one or two years, whenever it is convenient for her, and I also told her that she needs to follow up with her erp implementation consultant on a regular basis for tumor surveillance, and I reemphasized and stressed that point with her. She understood, and will do so. Sammy Boggs M.D. [place], Facial Plastic and Reconstructive Surgery, Department of Otolaryngology Head and Neck Surgery TDW/markos cc: GARRETT BECK MD [address] [place] [id number] documented in this encounter Plan of Treatment Not on filedocumented as of this encounter Visit Diagnoses Not on filedocumented in this encounter"
--- OUTSIDE RECORDS SUMMARY | ~2020-06-09 | XMS | Encounter Summary ---
Demographics + + + | Address | [address] | | | [place] [address] | + + + | Home Phone | | + + + | Preferred Language | Unknown | + + + | Marital Status | | + + + | Gnosticist Affiliation | Unknown | + + + | Race | White | + + + | Ethnic Group | Unknown | + + + Author + + + | Author | [facility] | | | and [place] | + + + | Organization | [facility] | | | and [...] [place] | | | | | [address] | | + + + + + | Angeli Burdick | ECON | [address] | | | | | [place] | | | | | [address] | | + + + + + Care Team Providers + +------+ + | Care Director Targeted Marketing Name | Role | Phone | + +------+ + PCP | Unavailable | + +------+ + Encounter Details +--------+ + + + + | Date | Type | Department | Care Team | Description | +--------+ + + + + | 06/20/ | Hospital | [facility] | | | | 1992 - | Encounter | MED CTR GENERIC OP | | | | | | CONV DEPT [address] | | | | 09/06/ | | [place], | | | | 1992 | | [place] [address] | | | | | | [phone] | | | +--------+ + + + [...]
--- OUTSIDE RECORDS SUMMARY | ~2020-06-09 | XMS | Encounter Summary ---
Demographics + + + | Address | [address] | | | [place] [address] | + + + | Home Phone | | + + + | Preferred Language | Unknown | + + + | Marital Status | | + + + | Faith Affiliation | Unknown | + + + [...] [place] | | | | | [address] | | + + + + + | Angeli Burdick | ECON | [address] | | | | | [place] | | | | | [address] | | + + + + + Care Team Providers + +------+ + | Care Casing Builder Name | Role | Phone | + +------+ + PCP | Unavailable | + +------+ + Encounter Details +--------+ + + + + | Date | Type | Department | Care Team | Description | +--------+ + + + + | 09/13/ | Hospital | [facility] | | | | 2007 | Encounter | MED CTR XRAY [address] | | | | | | [place] | | | | | | [place] [address] | | | | | | [phone] | | | +--------+ + + + [...]
--- OUTSIDE RECORDS SUMMARY | ~2020-06-09 | XMS | Encounter Summary ---
Demographics + + + | Address | [address] | | | [place] [address] | + + + | Home Phone | | + + + | Preferred Language | Unknown | + + + | Marital Status | | + + + | Confucianist Affiliation | Unknown | + + + | Race | White | + + + | Ethnic Group | Unknown | + + + Author + + + | Author | [facility] | | | and [place] | + + + | Organization | [facility] | | | [...] [place] | | | | | [address] | | + + + + + | Angeli Burdick | ECON | [address] | | | | | [place] | | | | | [address] | | + + + + + Care Team Providers + +------+ + | Care Manager Concrete Name | Role | Phone | + +------+ + | Sveta Lawrence MD | PCP | | + +------+ + Encounter Details +--------+ + + + + | Date | Type | Department | Care Team | Description | +--------+ + + + + | 11/04/ | Abstract | [facility] | Sveta Lawrence MD | | | 2018 | | [facility] [place] | [address] | | | | | [address] | [place] | | | | | [place] | [address] | | | | | [address] | | | | | | [phone] | | | +--------+ + + + [...] | + +--------+ + + + | KAT EXTERNAL IMAGE | Routin | 07/20/2017 | | Results for this | | | e | | | procedure are in the | | | | | | results section. | + +--------+ + + + documented in this encounter Results KAT External Image (07/20/2017) + + + + + + | Component | Value | Ref Range | Performed | Pathologist | | | | | At | Signature | + + + + + + | EXT | 2-Benign finding(s) | | | | | MAMMOGRAPHY | | | | | + + + + + + documented in this encounter Visit Diagnoses Not on filedocumented in this encounter"
--- OUTSIDE RECORDS SUMMARY | ~2020-06-09 | XMS | Encounter Summary ---
Demographics + + + | Address | [address] | | | [place] [address] | + + + | Home Phone | | + + + | Preferred Language | Unknown | + + + | Marital Status | | + + + | Church Affiliation | Unknown | + + + | Race | White | + + + | Ethnic Group | Unknown | + + + Author + + + | Author | [facility] | | | and [place] | + + + | Organization | [facility] | | | [...] [place] | | | | | [address] | | + + + + + | Angeli Burdick | ECON | [address] | | | | | [place] | | | | | [address] | | + + + + + Care Team Providers + +------+ + | Care Aquatic Physiotherapist Name | Role | Phone | + +------+ + PCP | Unavailable | + +------+ + Encounter Details +--------+ + + + + | Date | Type | Department | Care Team | Description | +--------+ + + + + | 09/29/ | Hospital | [facility] | | | | 2007 - | Encounter | MED CTR XRAY [address] | | | | | | [place] | | | | 10/07/ | | [place] [address] | | | | 2007 | | [phone] | | | +--------+ + + + [...]
--- OUTSIDE RECORDS SUMMARY | ~2020-06-09 | XMS | Encounter Summary ---
Demographics + + + | Address | [address] | | | [place] [address] | + + + | Home Phone | | + + + | Preferred Language | Unknown | + + + | Marital Status | Single | + + + | Episcopal Affiliation | Unknown | + + + | Race | Unknown | + + + | Ethnic Group | Not or | + + + Author + + + | Author | [facility] | + + + | Organization | [facility] | + + + | Address | Unknown | + + + | Phone | Unavailable | + + + Support + + +---------+ + | Name | Relationship | Address | Phone | + + +---------+ + | Fahad Lopez | ECON | Unknown | | + + +---------+ + Care Team Providers + +------+ + | Care University Dean Name | Role | Phone | + +------+ + PCP | Unavailable | + +------+ + Encounter Details +--------+ + + + + | Date | Type | Department | Care Team | Description | +--------+ + + + + | 01/31/ | Office | General Internal | Note, Outpatient | Progress Note | | 1996 | Visit-Trans | Medicine [address] | Clinic | | | | [place] | [facility] | | | | | | Mailcode: [id number] | | | | | | Outpatient Clinic | | | | | | [facility], [address] | | | | | | [place], [place] | | | | | | [address] | | | | | | [phone] | | | +--------+ + + + [...] as of this encounter Progress Notes Interface, Website Designer In - 11/05/2006 3:12 AM [facility] CLINIC DATE: 01/31/97 OTOLARYNGOLOGY CLINIC SUBJECTIVE: Mrs. 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 She has had multiple excisions with permanent section margins obtained by Dr. Claude Rubalcava and is presented to us today after final reassurance that the margins on permanent section are free. OBJECTIVE: She has a defect which is 6 x 8 cm on her left buccal area, granulating in well and already pulling her mouth laterally and her eyelid downward slightly. DISCUSSION: I had a long discussion with her and Dr. Rubalcava about reconstructive options and arrived at flaps being the best way to repair it to minimize the ectropion and minimize the lateral aural distortion. PLAN: We have scheduled her tentatively for February 02 to be done by Dr. Sammy Boggs. I presented her with all of the options and she elected on this. Preoperatives were written. PAR discussion was held and permit was signed. Giovanni Olivas M.D. Ear Nose And Throat Specialist, Facial Plastic and Reconstructive Surgery Department of Otolaryngology Head and Neck Surgery TC:edmar documented in this encounter Plan of Treatment Not on filedocumented as of this encounter Visit Diagnoses Not on filedocumented in this encounter"
--- OUTSIDE RECORDS SUMMARY | ~2020-06-09 | XMS | Encounter Summary ---
Demographics + + + | Address | [address] | | | [place] [address] | + + + | Home Phone | | + + + | Preferred Language | Unknown | + + + | Marital Status | | + + + | Church Affiliation | Unknown | + + + | Race | White | + + + | Ethnic Group | Unknown | + + + Author + + + | Author | [facility] | | | and [place] | + + + | Organization | [facility] | | [...] [place] | | | | | [address] | | + + + + + | Angeli Burdick | ECON | [address] | | | | | [place] | | | | | [address] | | + + + + + Care Team Providers + +------+ + | Care Stock And Station Agent Name | Role | Phone | + +------+ + | Sveta Lawrence MD | PCP | | + +------+ + Encounter Details +--------+ + + + + | Date | Type | Department | Care Team | Description | +--------+ + + + + | 04/28/ | Abstract | [facility] | Sveta Lawrence MD | | | 2018 | | MEDICINE [place] | [address] | | | | | [address] | [place] | | | | | [place] | [address] | | | | | [address] | | | | | | [phone] | | | +--------+ + + + [...] | + +--------+ + + + | EXTERNAL LAB: BUN | Routin | 04/22/2018 | | Results for this | | | e | | | procedure are in the | | | | | | results section. | + +--------+ + + + | EXTERNAL LAB: | Routin | 04/22/2018 | | Results for this | | GLUCOSE | e | | | procedure are in the | | | | | | results section. | + +--------+ + + + | EXTERNAL LAB: JACK | Routin | 04/22/2018 | | Results for this | | | e | | | procedure are in the | | | | | | results section. | + +--------+ + + + | EXTERNAL LAB: AST | Routin | 04/22/2018 | | Results for this | | | e | | | procedure are in the | | | | | | results section. | + +--------+ + + + | EXTERNAL LAB: | Routin | 04/22/2018 | | Results for this | | ALKALINE PHOSPHATASE | e | | | procedure are in the | | | | | | results section. | + +--------+ + + + | EXTERNAL LAB: | Routin | 04/22/2018 | | Results for this | | BILIRUBIN, TOTAL | e | | | procedure are in the | | | | | | results section. | + +--------+ + + + | EXTERNAL LAB: | Routin | 04/22/2018 | | Results for this | | ALBUMIN | e | | | procedure are in the | | | | | | results section. | + +--------+ + + + | EXTERNAL LAB: | Routin | 04/22/2018 | | Results for this | | PROTEIN, TOTAL | e | | | procedure are in the | | | | | | results section. | + +--------+ + + + | EXTERNAL LAB: | Routin | 04/22/2018 | | Results for this | | CALCIUM | e | | | procedure are in the | | | | | | results section. | + +--------+ + + + | EXTERNAL LAB: CARBON | Routin | 04/22/2018 | | Results for this | | DIOXIDE | e | | | procedure are in the | | | | | | results section. | + +--------+ + + + | EXTERNAL LAB: | Routin | 04/22/2018 | | Results for this | | CHLORIDE | e | | | procedure are in the | | | | | | results section. | + +--------+ + + + | EXTERNAL LAB: | Routin | 04/22/2018 | | Results for this | | POTASSIUM | e | | | procedure are in the | | | | | | results section. | + +--------+ + + + | EXTERNAL LAB: SODIUM | Routin | 04/22/2018 | | Results for this | | | e | | | procedure are in the | | | | | | results section. | + +--------+ + + + | EXTERNAL LAB: | Routin | 04/22/2018 | | Results for this | | HEPATITIS C AB | e | | | procedure are in the | | | | | | results section. | + +--------+ + + + | EXTERNAL LAB: CBC | Routin | 04/22/2018 | | Results for this | | | e | | | procedure are in the | | | | | | results section. | + +--------+ + + + | EXTERNAL LAB: TSH | Routin | 04/22/2018 | | Results for this | | | e | | | procedure are in the | | | | | | results section. | + +--------+ + + + | EXTERNAL LAB: | Routin | 04/22/2018 | | Results for this | | TRIGLYCERIDES | e | | | procedure are in the | | | | | | results section. | + +--------+ + + + | EXTERNAL LAB: | Routin | 04/22/2018 | | Results for this | | CHOLESTEROL, HDL | e | | | procedure are in the | | | | | | results section. | + +--------+ + + + | EXTERNAL LAB: | Routin | 04/22/2018 | | Results for this | | CHOLESTEROL, TOTAL | e | | | procedure are in the | | | | | | results section. | + +--------+ + + + | EXTERNAL LAB: | Routin | 04/22/2018 | | Results for this | | CHOLESTEROL, LDL | e | | | procedure are in the | | | | | | results section. | + +--------+ + + + | EXTERNAL LAB: EGFR | Routin | 04/22/2018 | | Results for this | | | e | | | procedure are in the | | | | | | results section. | + +--------+ + + + | EXTERNAL LAB: | Routin | 04/22/2018 | | Results for this | | CREATININE | e | | | procedure are in the | | | | | | results section. | + +--------+ + + + | LIPID PANEL | Routin | 04/22/2018 | | | | | e | | | | + +--------+ + + + | LIPID PANEL | Routin | 04/22/2018 | | Results for this | | | e | | | procedure are in the | | | | | | results section. | + +--------+ + + + | CBC WITH | Routin | 04/22/2018 | | Results for this | | DIFFERENTIAL | e | | | procedure are in the | | | | | | results section. | + +--------+ + + + | HEMOGLOBIN A1C | Routin | 04/22/2018 | | Results for this | | | e | | | procedure are in the | | | | | | results section. | + +--------+ + + + | COMPREHENSIVE | Routin | 04/22/2018 | | Results for this | | METABOLIC PANEL | e | | | procedure are in the | | | | | | results section. | + +--------+ + + + documented in this encounter Results CBC with Differential (04/22/2018) + +-------+ + + + | Component | Value | Ref Range | Performed | Pathologist | | | | | At | Signature | + +-------+ + + + | MCH | 31.0 | 27.0 - 33.0 pg | | | + +-------+ + + + | MCHC | 33.0 | 30.0 - 36.0 % | | | + +-------+ + + + | % Basophils | 0.5 | 0.0 - 2.0 % | | | + +-------+ + + + + + | Specimen | + + | Blood | + + External Lab: Hepatitis C Ab (04/22/2018) + + + + + + | Component | Value | Ref Range | Performed | Pathologist | | | | | At | Signature | + + + + + + | HCV, | Non-Reactive | Non-Reactive | | | | External | | | | | + + + + + + External Lab: CBC (04/22/2018) + +-------+ + + + | Component | Value | Ref Range | Performed | Pathologist | | | | | At | Signature | + +-------+ + + + | WBC, | 5.7 | 4.5 - 11 | | | | External | | | | | + +-------+ + + + | HGB, | 14.2 | 12 - 16 | | | | External | | | | | + +-------+ + + + | HCT, | 43.3 | 35 - 45 | | | | External | | | | | + +-------+ + + + | PLT, | 279 | 140 - 440 | | | | External | | | | | + +-------+ + + + | Neutrophils | 52.7 | 39 - 80 | | | | %, | | | | | | External | | | | | + +-------+ + + + | Lymphocytes | 36.6 | 24 - 44 | | | | %, | | | | | | External | | | | | + +-------+ + + + | Monocytes | 6.4 | 0 - 12 | | | | %, External | | | | | + +-------+ + + + | Eosinophils | 3.8 | 0 - 6 | | | | %, | | | | | | External | | | | | + +-------+ + + + | RBC, | 4.55 | 3.8 - 5.1 | | | | External | | | | | + +-------+ + + + | MCV, | 95 | 81 - 99 | | | | External | | | | | + +-------+ + + + | RDW, | 13.7 | 10.5 - 15 | | | | External | | | | | + +-------+ + + + External Lab: TSH (04/22/2018) + +-------+ + + + | Component | Value | Ref Range | Performed | Pathologist | | | | | At | Signature | + +-------+ + + + | TSH, | 0.837 | 0.27 - 4.2 | | | | External | | | | | + +-------+ + + + + + | Specimen | + + | Blood | + + Comprehensive Metabolic Panel (04/22/2018) + +-------+ + + + | Component | Value | Ref Range | Performed | Pathologist | | | | | At | Signature | + +-------+ + + + | Anion Gap | 21 | 7 - 21 mmol/L | | | + +-------+ + + + | Bun/Creatin | 18.2 | 6 - 28.6 | | | | ine | | | | | + +-------+ + + + | Globulin | 3.4 | 1.8 - 3.5 | | | + +-------+ + + + | Albumin/Ally | 1.1 | 1.1 - 2.4 | | | | bulin Ratio | | | | | + +-------+ + + + + + | Specimen | + + | Blood | + + Lipid Panel (04/22/2018) + + | Specimen | + + | Blood | + + Hemoglobin A1C (04/22/2018) + +---------+ + + + | Component | Value | Ref Range | Performed | Pathologist | | | | | At | Signature | + +---------+ + + + | Hemoglobin | 6.6 (A) | 6.4 % | | | | A1c | | | | | + +---------+ + + + + + | Specimen | + + | Blood | + + External Lab: BUN (04/22/2018) + +-------+ + + + | Component | Value | Ref Range | Performed | Pathologist | | | | | At | Signature | + +-------+ + + + | BUN, | 16 | 6 - 23 | | | | External | | | | | + +-------+ + + + External Lab: Glucose (04/22/2018) + +---------+ + + + | Component | Value | Ref Range | Performed | Pathologist | | | | | At | Signature | + +---------+ + + + | Glucose, | 128 (A) | 70 - 100 | | | | External | | | | | + +---------+ + + + External Lab: ALT (04/22/2018) + +-------+ + + + | Component | Value | Ref Range | Performed | Pathologist | | | | | At | Signature | + +-------+ + + + | ALT, | 12 | 7 - 52 | | | | External | | | | | + +-------+ + + + External Lab: AST (04/22/2018) + +-------+ + + + | Component | Value | Ref Range | Performed | Pathologist | | | | | At | Signature | + +-------+ + + + | AST, | 14 | 13 - 39 | | | | External | | | | | + +-------+ + + + External Lab: Alkaline Phosphatase (04/22/2018) + +-------+ + + + | Component | Value | Ref Range | Performed | Pathologist | | | | | At | Signature | + +-------+ + + + | ALP, | 65 | 31 - 130 | | | | External | | | | | + +-------+ + + + External Lab: Bilirubin, Total (04/22/2018) + +-------+ + + + | Component | Value | Ref Range | Performed | Pathologist | | | | | At | Signature | + +-------+ + + + | Bilirubin, | 0.8 | 0 - 1.2 | | | | Total, | | | | | | External | | | | | + +-------+ + + + External Lab: Albumin (04/22/2018) + +-------+ + + + | Component | Value | Ref Range | Performed | Pathologist | | | | | At | Signature | + +-------+ + + + | Albumin, | 3.9 | 3.5 - 5 | | | | External | | | | | + +-------+ + + + External Lab: Protein, Total (04/22/2018) + +-------+ + + + | Component | Value | Ref Range | Performed | Pathologist | | | | | At | Signature | + +-------+ + + + | Protein, | 7.3 | 6 - 8.3 | | | | Total, | | | | | | External | | | | | + +-------+ + + + External Lab: Calcium (04/22/2018) + +-------+ + + + | Component | Value | Ref Range | Performed | Pathologist | | | | | At | Signature | + +-------+ + + + | Calcium, | 10 | 8.5 - 10.3 | | | | External | | | | | + +-------+ + + + External Lab: Carbon Dioxide (04/22/2018) + +-------+ + + + | Component | Value | Ref Range | Performed | Pathologist | | | | | At | Signature | + +-------+ + + + | Carbon | 24 | 19 - 31 | | | | Dioxide, | | | | | | External | | | | | + +-------+ + + + External Lab: Chloride (04/22/2018) + +-------+ + + + | Component | Value | Ref Range | Performed | Pathologist | | | | | At | Signature | + +-------+ + + + | Chloride, | 102 | 95 - 112 | | | | External | | | | | + +-------+ + + + External Lab: Potassium (04/22/2018) + +-------+ + + + | Component | Value | Ref Range | Performed | Pathologist | | | | | At | Signature | + +-------+ + + + | Potassium, | 4.4 | 3.6 - 5.1 | | | | External | | | | | + +-------+ + + + External Lab: Sodium (04/22/2018) + +-------+ + + + | Component | Value | Ref Range | Performed | Pathologist | | | | | At | Signature | + +-------+ + + + | Sodium, | 143 | 132 - 143 | | | | External | | | | | + +-------+ + + + External Lab: eGFR (04/22/2018) + +-------+ + + + | Component | Value | Ref Range | Performed | Pathologist | | | | | At | Signature | + +-------+ + + + | eGFR, | 63 | 60 | | | | External | | | | | + +-------+ + + + + + | Specimen | + + | Blood | + + External Lab: Creatinine (04/22/2018) + +-------+ + + + | Component | Value | Ref Range | Performed | Pathologist | | | | | At | Signature | + +-------+ + + + | Creatinine, | 0.88 | 0.7 - 1.18 | | | | External | | | | | + +-------+ + + + + + | Specimen | + + | Blood | + + Lipid Panel (04/22/2018) + +---------+ + + + | Component | Value | Ref Range | Performed | Pathologist | | | | | At | Signature | + +---------+ + + + | VLDL | 28 | 4 - 40 | | | | Cholesterol | | | | | | Rohith | | | | | + +---------+ + + + | Chol/HDL | 3.1 | 4.4 | | | | Ratio | | | | | + +---------+ + + + | Non HDL | 133 (A) | 130 | | | | Chol. | | | | | | (LDL+VLDL) | | | | | + +---------+ + + + + + | Specimen | + + | Blood | + + External Lab: Triglycerides (04/22/2018) + +-------+ + + + | Component | Value | Ref Range | Performed | Pathologist | | | | | At | Signature | + +-------+ + + + | Triglycerid | 140 | 30 - 150 | | | | es, | | | | | | External | | | | | + +-------+ + + + + + | Specimen | + + | Blood | + + External Lab: Cholesterol, HDL (04/22/2018) + +-------+ + + + | Component | Value | Ref Range | Performed | Pathologist | | | | | At | Signature | + +-------+ + + + | HDL | 64.5 | 40 mg/dl | | | | Cholesterol | | | | | | , External | | | | | + +-------+ + + + + + | Specimen | + + | Blood | + + External Lab: Cholesterol, Total (04/22/2018) + +-------+ + + + | Component | Value | Ref Range | Performed | Pathologist | | | | | At | Signature | + +-------+ + + + | Cholesterol | 197 | 200 mg/dl | | | | , Total, | | | | | | External | | | | | + +-------+ + + + + + | Specimen | + + | Blood | + + External Lab: Cholesterol, LDL (04/22/2018) + +---------+ + + + | Component | Value | Ref Range | Performed | Pathologist | | | | | At | Signature | + +---------+ + + + | LDL | 105 (A) | 100 | | | | Cholesterol | | | | | | , Direct, | | | | | | External | | | | | + +---------+ + + + + + | Specimen | + + | Blood | + + documented in this encounter Visit Diagnoses Not on filedocumented in this encounter"
--- OUTSIDE RECORDS SUMMARY | ~2020-06-09 | XMS | Encounter Summary ---
Demographics + + + | Address | [address] | | | [place] [address] | + + + | Home Phone | | + + + | Preferred Language | Unknown | + + + | Marital Status | | + + + | Restorationist Affiliation | Unknown | + + + | Race | White | + + + | Ethnic Group | Unknown | + + + Author + + + | Author | [facility] | | | and [place] | + + + | Organization | [facility] | | | [...] [place] | | | | | [address] | | + + + + + | Angeli Burdick | ECON | [address] | | | | | [place] | | | | | [address] | | + + + + + Care Team Providers + +------+ + | Care Candy Cutter Hand Name | Role | Phone | + +------+ + | Sveta Lawrence MD | PCP | | + +------+ + Encounter Details +--------+ + + + + | Date | Type | Department | Care Team | Description | +--------+ + + + + | 01/20/ | Abstract | [facility] | Sveta Lawrence MD | | | 2018 | | MEDICINE [place] | [address] | | | | | [address] | [place] | | | | | [place] | [address] | | | | | [address] | | | | | | [phone] | | | +--------+ + + + [...] +--------+ + + + | EXTERNAL LAB: INOCENTE [facility] | 01/18/2018 | | Results for this | | | e | | | procedure are in the | | | | | | results section. | + +--------+ + + + documented in this encounter Results External Lab: INOCENTE (01/18/2018) + + + + + + | Component | Value | Ref Range | Performed | Pathologist | | | | | At | Signature | + + + + + + | INOCENTE, | 4.93 (A) | 0.27 - 4.2 | | | | External | | | | | + + + + + + + + | Specimen | + + | Blood | + + documented in this encounter Visit Diagnoses Not on filedocumented in this encounter"
--- OUTSIDE RECORDS SUMMARY | ~2020-06-09 | XMS | Encounter Summary ---
Demographics + + + | Address | [address] | | | [place] [address] | + + + | Home Phone | | + + + | Preferred Language | Unknown | + + + | Marital Status | | + + + | Christian Affiliation | Unknown | + + + [...] [place] | | | | | [address] | | + + + + + | Angeli Burdick | ECON | [address] | | | | | [place] | | | | | [address] | | + + + + + Care Team Providers + +------+ + | Care City Secretary Name | Role | Phone | + +------+ + | Sloane Suazo MD | PCP | | + +------+ + Encounter Details +--------+ + + + + | Date | Type | Department | Care Team | Description | +--------+ + + + + | 05/19/ | Abstract | [facility] | [facility] | | | 2011 | | Conversion Location | SR | | | | | [address] | | | | | | [place], [place] | | | | | | [address] | | | | | | [phone] | | | +--------+ + + + [...] + + + | Blood Pressure | 128/70 | 2010 12:00 AM | | | | | PDT | | + + + + + | Pulse | - | - | | + + + + + | Temperature | - | - | | + + + + + | Respiratory Rate | - | - | | + + + + + | Oxygen Saturation | - | - | | + + + + + | Inhaled Oxygen | - | - | | | Concentration | | | | + + + + + | Weight | 67.1 kg (148 lb) | 2010 12:00 AM | | | | | PDT | | + + + + + | Height | 160 cm (5' 3") | 2010 12:00 AM | | | | | PDT | | + + + + + | Body Mass Index | 26.22 | 2010 12:00 AM | | | | | PDT | | + + + + + documented in this encounter Plan of Treatment Not on filedocumented as of this encounter Procedures + +--------+ + + + | Procedure Name | Priori | Date/Time | Associated Diagnosis | Comments | | | ty | | | | + +--------+ + + + | KAT SCREENING | Routin | 12/06/2010 | | Results for this | | BILATERAL | e | 12:00 AM | | procedure are in the | | | | PDT | | results section. | + +--------+ + + + | PAP SMEAR | Routin | 12/31/2009 | | Results for this | | | e | 12:00 AM | | procedure are in the | | | | PDT | | results section. | + +--------+ + + + | ENDOSCOPY, COLON, | Routin | 10/12/2007 | | Results for this | | DIAGNOSTIC | e | 12:00 AM | | procedure are in the | | | | PST | | results section. | + +--------+ + + + documented in this encounter Results KAT Screening Bilateral (12/06/2010 12:00 AM PDT) + + | Specimen | + + | | + + + + + | Narrative | Performed At | + + + | | | + + + Pap Smear (12/31/2009 12:00 AM PDT) + + | Specimen | + + | | + + + + + | Narrative | Performed At | + + + | | | + + + ENDOSCOPY, COLON, DIAGNOSTIC (10/12/2007 12:00 AM PST) + + | Specimen | + + | | + + + + + | Narrative | Performed At | + + + | | | + + + documented in this encounter Visit Diagnoses Not on filedocumented in this encounter
--- OUTSIDE RECORDS SUMMARY | ~2020-06-09 | XMS | Encounter Summary ---
Demographics + + + | Address | [address] | | | [place] [address] | + + + | Home Phone [...] | Author | [facility] | | | and [place] | + + + | Organization | [facility] | | | and [...] [place] | | | | | [address] | | + + + + + | Angeli Burdick | ECON | [address] | | | | | [place] | | | | | [address] | | + + + + + Care Team Providers + +------+ + | Care Cone Machine Feeder Name | Role | Phone | + +------+ + | Sveta Lawrence MD | PCP | | + +------+ + Reason for Visit + +--------+ + | Reason | Onset | Comments | | | Date | | + +--------+ + | Lab Results | 07/16/ | | | | 2016 | | + +--------+ + Encounter Details +--------+ + + + + | Date | Type | Department | Care Team | Description | +--------+ + + + + | 07/16/ | Telephone | [facility] | Sveta Lawrence MD | Lab Results | | 2016 | | MEDICINE [place] | [address] | | | | | [address] | [place], [place] | | | | | [place], [place] | [address] | | | | | [address] | | | | | | [phone] | | | +--------+ + + + [...] this encounter Miscellaneous Notes Telephone Encounter - Patrizia Dickson RN - 07/20/2017 11:51 AM PSTPatient called back a nd was offered appointment on 07/23 but she couldn't make it that day so appointment was mad e for 07/22/17 at 1300. elephone Encounter - Rose Marie Cortes RN - 07/20/2017 11:29 AM PSTLVM for bahman t to call back to discuss lab results and to be scheduled for TSH follow up. We can schedule the patient on 07/23/17 at 8:45 at the nurse hold there. Thank you. el ephone Encounter - Sveta Lawrence MD - 07/16/2017 5:21 PM PSTPlease notify had received la boratory results from inter-past dated 06/26/17 and she has an A1c of 6.7, and normal lipid panel and comprehensive metabolic panel and CBC. Her TSH is low 0.143 and would like to follow-up to discuss the abnormality, Please schedule her ,thank you 5:2 2 PM PSTdocumented in this encounter Plan of Treatment Not on filedocumented as of this encounter Visit Diagnoses Not on filedocumented in this encounter"
--- OUTSIDE RECORDS SUMMARY | ~2020-06-09 | XMS | Encounter Summary ---
Demographics + + + | Address | [address] | | | [place] [address] | + + + | Home Phone | | + + + | Preferred Language | Unknown | + + + | Marital Status | | + + + | Judaism Affiliation | Unknown | + + + | Race | White | + + + | Ethnic Group | Unknown | + + + Author + + + | Author | [facility] | | | and [place] | + + + | Organization | [facility] | | | [...] [place] | | | | | [address] | | + + + + + | Angeli Burdick | ECON | [address] | | | | | [place] | | | | | [address] | | + + + + + Care Team Providers + +------+ + | Care Audit Consultant Name | Role | Phone | + +------+ + | Sveta Lawrence MD | PCP | | + +------+ + Encounter Details +--------+ + + + + | Date | Type | Department | Care Team | Description | +--------+ + + + + | 08/06/ | Abstract | [facility] | Sveta Lawrence MD | | | 2017 | | [facility] [place] | [address] | | | | | [address] | [place] | | | | | [place] | [address] | | | | | [address] | | | | | | [phone] | | | +--------+ + + + [...] + | EXTERNAL LAB: | Routin | 06/26/2017 | | Results for this | | GLUCOSE | e | | | procedure are in the | | | | | | results section. | + +--------+ + + + | EXTERNAL LAB: ALT | Routin | 06/26/2017 | | Results for this | | | e | | | procedure are in the | | | | | | results section. | + +--------+ + + + | EXTERNAL LAB: AST | Routin | 06/26/2017 | | Results for this | | | e | | | procedure are in the | | | | | | results section. | + +--------+ + + + | EXTERNAL LAB: | Routin | 06/26/2017 | | Results for this | | ALKALINE PHOSPHATASE | e | | | procedure are in the | | | | | | results section. | + +--------+ + + + | EXTERNAL LAB: | Routin | 06/26/2017 | | Results for this | | BILIRUBIN, TOTAL | e | | | procedure are in the | | | | | | results section. | + +--------+ + + + | EXTERNAL LAB: | Routin | 06/26/2017 | | Results for this | | ALBUMIN | e | | | procedure are in the | | | | | | results section. | + +--------+ + + + | EXTERNAL LAB: | Routin | 06/26/2017 | | Results for this | | PROTEIN, TOTAL | e | | | procedure are in the | | | | | | results section. | + +--------+ + + + | EXTERNAL LAB: | Routin | 06/26/2017 | | Results for this | | CALCIUM | e | | | procedure are in the | | | | | | results section. | + +--------+ + + + | EXTERNAL LAB: CARBON | Routin | 06/26/2017 | | Results for this | | DIOXIDE | e | | | procedure are in the | | | | | | results section. | + +--------+ + + + | EXTERNAL LAB: | Routin | 06/26/2017 | | Results for this | | CHLORIDE | e | | | procedure are in the | | | | | | results section. | + +--------+ + + + | EXTERNAL LAB: | Routin | 06/26/2017 | | Results for this | | POTASSIUM | e | | | procedure are in the | | | | | | results section. | + +--------+ + + + | EXTERNAL LAB: SODIUM | Routin | 06/26/2017 | | Results for this | | | e | | | procedure are in the | | | | | | results section. | + +--------+ + + + | EXTERNAL LAB: | Routin | 06/26/2017 | | Results for this | | TRIGLYCERIDES | e | | | procedure are in the | | | | | | results section. | + +--------+ + + + | EXTERNAL LAB: | Routin | 06/26/2017 | | Results for this | | CHOLESTEROL, HDL | e | | | procedure are in the | | | | | | results section. | + +--------+ + + + | EXTERNAL LAB: | Routin | 06/26/2017 | | Results for this | | CHOLESTEROL, TOTAL | e | | | procedure are in the | | | | | | results section. | + +--------+ + + + | EXTERNAL LAB: | Routin | 06/26/2017 | | Results for this | | CHOLESTEROL, LDL | e | | | procedure are in the | | | | | | results section. | + +--------+ + + + | EXTERNAL LAB: | Routin | 06/26/2017 | | Results for this | | CREATININE | e | | | procedure are in the | | | | | | results section. | + +--------+ + + + documented in this encounter Results External Lab: Glucose (06/26/2017) + +---------+ + + + | Component | Value | Ref Range | Performed | Pathologist | | | | | At | Signature | + +---------+ + + + | Glucose, | 142 (A) | 70 - 100 | | | | External | | | | | + +---------+ + + + External Lab: ALT (06/26/2017) + +-------+ + + + | Component | Value | Ref Range | Performed | Pathologist | | | | | At | Signature | + +-------+ + + + | ALT, | 13 | 7 - 52 | | | | External | | | | | + +-------+ + + + External Lab: AST (06/26/2017) + +--------+ + + + | Component | Value | Ref Range | Performed | Pathologist | | | | | At | Signature | + +--------+ + + + | AST, | 12 (A) | 13 - 39 | | | | External | | | | | + +--------+ + + + External Lab: Alkaline Phosphatase (06/26/2017) + +-------+ + + + | Component | Value | Ref Range | Performed | Pathologist | | | | | At | Signature | + +-------+ + + + | ALP, | 64 | 31 - 130 | | | | External | | | | | + +-------+ + + + External Lab: Bilirubin, Total (06/26/2017) + +-------+ + + + | Component | Value | Ref Range | Performed | Pathologist | | | | | At | Signature | + +-------+ + + + | Bilirubin, | 1.1 | 0 - 1.2 | | | | Total, | | | | | | External | | | | | + +-------+ + + + External Lab: Albumin (06/26/2017) + +-------+ + + + | Component | Value | Ref Range | Performed | Pathologist | | | | | At | Signature | + +-------+ + + + | Albumin, | 3.7 | 3.5 - 5 | | | | External | | | | | + +-------+ + + + External Lab: Protein, Total (06/26/2017) + +-------+ + + + | Component | Value | Ref Range | Performed | Pathologist | | | | | At | Signature | + +-------+ + + + | Protein, | 7.0 | 6 - 8 | | | | Total, | | | | | | External | | | | | + +-------+ + + + External Lab: Calcium (06/26/2017) + +-------+ + + + | Component | Value | Ref Range | Performed | Pathologist | | | | | At | Signature | + +-------+ + + + | Calcium, | 9.4 | 8.4 - 10.2 | | | | External | | | | | + +-------+ + + + External Lab: Carbon Dioxide (06/26/2017) + +-------+ + + + | [...] +-------+ + + + External Lab: Chloride (06/26/2017) + +-------+ + + + | Component | Value | Ref Range | Performed | Pathologist | | | | | At | Signature | + +-------+ + + + | Chloride, | 103 | 95 - 112 | | | | External | | | | | + +-------+ + + + External Lab: Potassium (06/26/2017) + +-------+ + + + | Component | Value | Ref Range | Performed | Pathologist | | | | | At | Signature | + +-------+ + + + | Potassium, | 4.2 | 3.6 - 5.1 | | | | External | | | | | + +-------+ + + + External Lab: Sodium (06/26/2017) + +-------+ + + + | Component | Value | Ref Range | Performed | Pathologist | | | | | At | Signature | + +-------+ + + + | Sodium, | 140 | 132 - 143 | | | | External | | | | | + +-------+ + + + External Lab: Triglycerides (06/26/2017) + +-------+ + + + | Component | Value | Ref Range | Performed | Pathologist | | | | | At | Signature | + +-------+ + + + | Triglycerid | 84 | 30 - 150 | | | | es, | | | | | | External | | | | | + +-------+ + + + + + | Specimen | + + | Blood | + + External Lab: Cholesterol, HDL (06/26/2017) + +-------+ + + + | Component | Value | Ref Range | Performed | Pathologist | | | | | At | Signature | + +-------+ + + + | HDL | 73.3 | mg/dl | | | | Cholesterol | | | | | | , External | | | | | + +-------+ + + + + + | Specimen | + + | Blood | + + External Lab: Cholesterol, Total (06/26/2017) + +-------+ + + + | Component | Value | Ref Range | Performed | Pathologist | | | | | At | Signature | + +-------+ + + + | Cholesterol | 193 | mg/dl | | | | , Total, | | | | | | External | | | | | + +-------+ + + + + + | Specimen | + + | Blood | + + External Lab: Cholesterol, LDL (06/26/2017) + +-------+ + + + | Component | Value | Ref Range | Performed | Pathologist | | | | | At | Signature | + +-------+ + + + | LDL | 103 | | | | | Cholesterol | | | | | | , Direct, | | | | | | External | | | | | + +-------+ + + + + + | Specimen | + + | Blood | + + External Lab: Creatinine (06/26/2017) + +-------+ + + + | Component | Value | Ref Range | Performed | Pathologist | | | | | At | Signature | + +-------+ + + + | Creatinine, | 0.81 | 0.7 - 1.18 | | | | External | | | | | + +-------+ + + + + + | Specimen | + + | Blood | + + documented in this encounter Visit Diagnoses Not on filedocumented in this encounter"
[2020-06-09] MEDS ORDERED: OMEPRAZOLE20 MG PO (19:38)
[2020-06-09] MEDS ORDERED: LISINOPRIL2.5 MG PO (19:38)
[2020-06-09] MEDS ORDERED: LEVOTHYROXINE100 MCG PO (19:38)
[2020-06-09] MEDS ORDERED: SIMBRINZA 1%-0.28 ML OPTH (19:38)
[2020-06-09] MEDS ORDERED: PRAVASTATIN SOD40 MG PO (19:38)
== END 2020-06-09 20:38 | disposition home or self-care (01) ==
LOC: ED 19:30
DX: S83.91XA Sprain of unspecified site of right knee, initial encounter (principal); W18.31XA Fall on same level due to stepping on an object, initial encounter; I10 Essential (primary) hypertension; Z88.2 Allergy status to sulfonamides; Z79.899 Other long term (current) drug therapy
CPT/HCPCS: 73560; 99283-25

== ENCOUNTER 2020-09-17 12:00 | Day surgery (SDC) | payer MEDICARE, OTHER ==
--- NOTE | 2020-09-14 09:56 | NUR ---
PT HAS A BRACE AND CRUCHES TO USE IF NEED AND A CANE.
[~2020-09-17] VITALS: Ht 160 cm; Wt 74.0 kg
[~2020-09-17 12:00] MED LIST: CAL MAG ZINC +1 EAC1 PO; LEVOTHYROXINE100 MCG PO; LISINOPRIL2.5 MG PO; MULTI VITAMIN1 EACH PO; OMEPRAZOLE20 MG PO; PRAVASTATIN SOD40 MG PO; SIMBRINZA 1%-0.28 ML OPTH
[2020-09-17] MEDS ORDERED: [UNRECOGNIZED DRUG - OTHER] OP (12:21)
--- NOTE | 2020-09-17 13:17 | NUR ---
PT RESTING IN BED ON PERSONAL CELL PHONE. PT STATES BEING COLD, PROVIDED WARM BLANKETS AND VICK HUGGER PLACED ON WARM. PT QUESTIONS "HOW MUCH LONGER?" PT GIVEN AN ESTIMATED TIME FRAME. CALL LIGHT WITHIN REACH.
[2020-09-17] MEDS ORDERED: HYDROCODON-ACE1 EA10 PO (15:09)
[2020-09-17] MEDS ORDERED: DICLOFENAC SODI50 MG PO (15:10)
--- NOTE | 2020-09-17 15:35 | NUR ---
09/17/20 1535 Simon,Bernadette 1459 PT ARRIVED TO PACU AND IS DROWSY AND TALKING TO RN. PT DENIES PAIN AND NAUSEA. PT REPORTS FULL FEELING IN TOES AND FOOT. VSS. 1512 MD AT BEDSIDE TALKING TO PT AND PT AWAKE. 1525 REPORT TO DS RN, PT FRIEND AT BEDSIDE AND VSS.
--- NOTE | 2020-09-17 15:36 | NUR ---
PATIENT BACK TO ROOM FROM PACU, BEDSIDE REPORT FROM BLAYNE BARBOZA. PATIENT AWAKE AND ORIENTED. REPORTS NO PAIN, OR NAUSEA. KNEE IMMOBILIZER IN PLACE. PLAN FOR TO BE REFERED TO SPECIALIST FOR FURTHER EVALUATION AND TREATMENT. DRESSING TO PINKY, C/D/I. ICE APPLIED. PROVIDED ICE WATER AND SNACKS.
--- NOTE | 2020-09-17 16:28 | OR ---
[facility] [address] [place], [place] [address] Signed DATE OF OPERATION: 09/17/2020 SURGEON: Kofi Machado MD PREOPERATIVE DIAGNOSES: Anterior cruciate ligament tear, medial collateral ligament tear, and medial meniscus tear, right knee. POSTOPERATIVE DIAGNOSES: 1. Anterior cruciate ligament tear, medial collateral ligament tear, and medial meniscus tear, right knee. 2. Posterior cruciate ligament tear. PROCEDURE PREFORMED: Right knee arthroscopy with partial medial meniscectomy. INTERRELATED SPECIAL EDUCATION TEACHER: None. ANESTHESIA: General. ESTIMATED BLOOD LOSS: Minimal. BRIEF HISTORY: Charo is a 74-year-old female, who suffered a ground level fall, twisting her leg. Her MRI was consistent with MCL an ACL tear. She also had a medial meniscus tear. I did not fully appreciate her PCL tear on the MRI or on her exam in the office. Risks and benefits of MCL repair and medial meniscectomy were discussed with her and she elected to proceed. DESCRIPTION OF PROCEDURE: Once consent was obtained, she was taken to the operating room. After adequate anesthesia, she was placed on operating table, all downside pressure points well padded. The left leg was flexed, abducted, and externally rotated on a well-padded leg gatica. Exam under anesthesia was then performed, which showed gross instability in the sagittal plane. Both anterior and posterior drawers were markedly positive. She had 30 degrees of opening medially. At that point, we decided to go ahead and proceed with the arthroscopy and evaluate how much opening she had medially. The leg was prepped and Electronically Signed By: KOFI MACHADO MD 09/17/20 1628 PATIENT NAME: CHARO HERNANDEZ OPERATIVE REPORT DATE OF : 43 REPORT #: [id number] PHYSICIAN: KOFI MACHADO MD PCP: NATI WHITING MD REPORT IS CONFIDENTIAL AND NOT TO BE RELEASED WITHOUT AUTHORIZATION [facility] [address] [place], [place] [address] Signed draped in a standard sterile fashion. The portal sites were pre-injected using 0.25% Marcaine with epinephrine. The standard inferolateral and superolateral portals were made. The scope was introduced. ARTHROSCOPIC FINDINGS: [id number]-sl-[id number] synovitis was noted throughout the knee. The patella tracked well. Medial and lateral gutters were clear. The notch was pretty much empty. There was a little bit of scarred ACL posteriorly. The lateral compartment was intact with no significant opening along the lateral side. Medial side opened up to about 3 cm under direct visualization. The standard inferomedial portal was made and the meniscus was trimmed out since we were there already. Because of the fairly poor quality tissue and significant laxity, I did not feel that an MCL repair would be sustainable. The knee was so grossly unstable, but I am not sure that she does not need more than this done. She may need an allograft and a total knee versus reconstruction of all the ligaments. We elected at that time not to proceed with the MCL repair and the scope was withdrawn. All portals were closed and she was dressed with Adaptic, ABD, and Melecio wrap. We did inject the knee with 60 mg Toradol at the end of the case. We placed her in a hinged knee brace 0-90. She should be weightbearing as tolerated. Kofi Machado MD BA/MODL /[id number] Copies: ~ Electronically Signed By: KOFI MACHADO MD 09/17/20 1628 PATIENT NAME: CHARO HERNANDEZ OPERATIVE REPORT DATE OF : 43 REPORT #: [id number] PHYSICIAN: KOFI MACHADO MD PCP: NATI WHITING MD REPORT IS CONFIDENTIAL AND NOT TO BE RELEASED WITHOUT AUTHORIZATION
--- NOTE | 2020-09-17 17:14 | NUR ---
1615 HELPED PT UP TO BATHROOM SHE WAS ABLE TO VOID A GOOD AMOUT OF CLEAR YELLOW URINE. PT WAS ABLE TO WALK WITH MINIMAL ASSIST.
--- NOTE | 2020-09-17 17:21 | NUR ---
1700 DISCHARGE INSTRUCTIONS GIVEN TO PT SHE VOICED UNDERSTANDING.
== END 2020-09-17 17:00 | disposition home or self-care (01) ==
LOC: DS 12:00
PROVIDERS: ATTEND Specialist
DX: S83.511A Sprain of anterior cruciate ligament of right knee, initial encounter (principal); S83.521A Sprain of posterior cruciate ligament of right knee, initial encounter; S83.411A Sprain of medial collateral ligament of right knee, initial encounter; S83.241A Other tear of medial meniscus, current injury, right knee, initial encounter; M65.9 Synovitis and tenosynovitis, unspecified; G89.18 Other acute postprocedural pain; W18.30XA Fall on same level, unspecified, initial encounter; X50.0XXA Overexertion from strenuous movement or load, initial encounter
CPT/HCPCS: 01400; 64447; 76942; J0171; J0690; J1100; J1885; J2001; J2250; J2704; J3010; J7121

== ENCOUNTER 2021-01-31 09:16 | Emergency (ER) | payer MEDICARE, OTHER ==
[~2021-01-31] VITALS: Ht 160 cm; Wt 77.6 kg
[~2021-01-31 09:16] MED LIST changes: +DICLOFENAC SODI50 MG PO; +HYDROCODON-ACE1 EA10 PO; +[UNRECOGNIZED DRUG - OTHER] OP
[2021-01-31] MEDS ORDERED: TROSPIUM CHLORI20 MG PO (10:42)
== END 2021-01-31 12:44 | disposition home or self-care (01) ==
LOC: ED 09:16
DX: M79.89 Other specified soft tissue disorders (principal); I10 Essential (primary) hypertension; Z88.2 Allergy status to sulfonamides; Z88.5 Allergy status to narcotic agent; Z79.899 Other long term (current) drug therapy
CPT/HCPCS: 93971; 99283-25

== ENCOUNTER 2024-11-15 13:56 | Inpatient (IN) | payer OTHER, MEDICARE ==
[~2024-11-15] VITALS: Ht 160 cm; Wt 69.0 kg
[~2024-11-15 13:56] MED LIST changes: -MULTI VITAMIN1 EACH PO; +RHOPRESSA2.5 ML OP; +TROSPIUM CHLORI20 MG PO; +WOMEN'S 50 PLU1 EACH PO; -[UNRECOGNIZED DRUG - OTHER] OP
[2024-11-15] MEDS ORDERED: ALENDRONATE SOD70 MG PO (14:06)
[2024-11-15] MEDS ORDERED: DICLOFENAC SODI50 MG PO (14:06)
[2024-11-15] MEDS ORDERED: OZEMPIC1 MG/0.71 SUB-Q (14:06)
[2024-11-15] MEDS ORDERED: DORZOLAMIDE-TIM10 ML OU (14:06)
[2024-11-15 16:22] LABS: BASOPHILS 0.3 % (0-2); EOSINOPHILS 1.9 % (0-6); HEMATOCRIT 35.6 % (35.0-50.0); HEMOGLOBIN 12.3 g/dL (12.0-18.0); LYMPHOCYTES 18.4 % (24-44); MCH 32.8 (27-36); MCHC 34.6 g/dl (30-36); MCV 94.7 fl (81-99); NEUTROPHILS 74.4 % (39-80); PLATELET COUNT 243 K/uL (140-440); RBC 3.76 M/ul (4.3-5.7); RDW 13.7 (10.5-15.0)
[2024-11-15 16:30] LABS: INR 1.02 (0.80-1.30); PROTIME 13.3 Sec (11.2-14.2)
[2024-11-15 16:35] LABS: ALBUMIN 3.1 g/dL (3.4-5.0); ALBUMIN/GLOBULIN RATIO 0.82 (1.1-2.4); ANION GAP 13.1 (7-21); BILIRUBIN, TOTAL 0.7 mg/dL (0.2-1.0); BUN/CREATININE RATIO 32.05 (6.0-28.6); CREATININE, SERUM 0.78 mg/dL (0.55-1.02); POTASSIUM 4.1 mmol/L (3.5-5.1); PROTEIN, TOTAL 6.9 g/dL (6.4-8.2)
[2024-11-15] MEDS ORDERED: IBLOOD GLUCOSE TEST STRIP 1 EA TEST XX PRN (17:00)
[2024-11-15] MEDS ORDERED: LACTATED RINGER'S 1,000 ML IV SCH (17:00)
[2024-11-15] MEDS ORDERED: HYDROmorphone HCL 1 MG/ML SYR IV PRN (17:00)
[2024-11-15] MEDS ORDERED: HYDROmorphone HCL 1 MG/ML SYR IV ONE (17:15)
[2024-11-15] MEDS ORDERED: ondansetron HCL 4 MG/2 ML VIAL IV ONE (17:15)
[2024-11-15 18:13] VITALS: BP 135/66
--- NOTE | 2024-11-15 18:48 | NUR ---
REPORT RECEIVED FROM E/R RN. PT ALERT AND COOPERATIVE ORIENTED TO ROOM AND BED CONTROLS. AGREES SHE IS COMFORTABLE AFTER TRANSFER TO BED. RLE IS ELEVATED SOMEWHAT AT THE KNEE AND BLOCKED FOR ALIGNMENT. WARM BLANKET TO FEET PER PT REQUEST. FRESH H20 TO BEDSIDE ALONG WITH CRACKERS CHEESE AND APPLESAUCE. PRE-OP ED PROVIDED DR TAVAREZ IN TO MEET WITH PT ANSWERS QUESTIONS WELL.
--- NOTE | 2024-11-15 19:07 | EKG ---
[facility] [address] [facility] [place] [address] Signed Normal sinus rhythm Low voltage QRS Borderline ECG When compared with ECG of 14-SEP-2020 10:48, No significant change was found Confirmed by Dulce Tavarez MD () on 11/15/2024 7:07:16 PM Electronically Signed By: DULCE TAVAREZ MD 11/15/24 1907 PATIENT NAME: ELIZABETH HERNANDEZ Electrocardiogram DATE OF : 43 PHYSICIAN: DULCE TAVAREZ MD REPORT #: [id number] REPORT IS CONFIDENTIAL AND NOT TO BE RELEASED WITHOUT AUTHORIZATION
--- NOTE | 2024-11-15 19:25 | NUR ---
REPORT RECEIVED FROM AGUS RN. PATIENT AWAKE AND SCROLLING ON PHONE. DENIES ANY NEEDS AT THIS TIME. CALL LIGHT IN REACH.
[2024-11-15 20:54] VITALS: BP 128/67
[2024-11-15 20:58] VITALS: BP 128/67
--- NOTE | 2024-11-15 21:00 | NUR ---
PATIENT RESTING IN BED, WATCHING TV. PRN PAIN MEDICATION ADMINISTERED PER REQUEST. IV FLUIDS CONTINUING TO INFUSE PER ORDER. ASSESSMENT COMPLETE. PATIENT DENIES OTHER NEEDS, CALL LIGHT IN REACH.
--- NOTE | 2024-11-15 23:39 | NUR ---
PATIENT REQUESTED PRN PAIN MEDICATION, DENIES OTHER NEEDS. RESP. EVEN AND UNLABORED. WARM BLANKET PROVIDED, CALL LIGHT IN REACH.
--- NOTE | 2024-11-15 23:54 | NUR ---
FOOD AND DRINK REMOVED FROM PATIENT. PATIENT VERBALIZED UNDERSTANDING OF NPO STATUS. DENIES OTHER NEEDS. CALL LIGHT IN REACH.
[2024-11-16] VITALS (15 sets, daily range): BP systolic 84–129; BP diastolic 50–76
--- NOTE | 2024-11-16 00:42 | NUR ---
PATIENT WOKE TO RN ENTERING ROOM. DENIES ANY NEEDS, DENIES PAIN. RESP EVEN AND UNLABORED. CALL LIGHT IN REACH.
--- NOTE | 2024-11-16 02:15 | NUR ---
PRN PAIN MEDICATION ADMINISTERED PER REQUEST. SPO2 DECREASED TO 84% FOLLOWING ADMINISTRATION OF PAIN MEDICATION. CPOX MONITOR PLACED ON PATIENT. 2L NC O2 INITIATED. SPO2 INCREASED TO 94% FOLLOWING ADMIN OF OXYGEN. PATIENT DENIES OTHER NEEDS. CALL LIGHT IN REACH.
--- NOTE | 2024-11-16 03:40 | NUR ---
PATIENT RESTING WITH EYES CLOSED, RESP EVEN AND UNLABORED. CPOX MONITOR IN PLACE, NC 2L CONTINUES. NO NEEDS IDENTIFIED, IV FLUIDS CONTINUE TO INFUSE PER ORDER. CALL LIGHT IN REACH.
--- NOTE | 2024-11-16 04:18 | NUR ---
PRE-PROCEDURE WIPE DOWN COMPLETE WITH LINEN CHANGE. JEWELRY REMOVED AND LOCKED IN LOCK BOX. PATIENT BELONGINGS REMAIN IN ROOM.
--- NOTE | 2024-11-16 04:27 | NUR ---
PRN PAIN MEDICATION ADMINISTERED PER ORDER. PATIENT DENIES OTHER NEEDS AT THIS TIME. IV FLUIDS CONTINUE TO INFUSE WITHOUT DIFFICULTY, CALL LIGHT IN REACH. NC 2L IN PLACE.
[2024-11-16] MEDS ORDERED: LIDOCAINE 2% VISCOUS 6 ML SYR TOP ONE (06:15)
[2024-11-16 06:16] LABS: BASOPHILS 0.4 % (0-2); EOSINOPHILS 3.8 % (0-6); HEMATOCRIT 34.8 % (35.0-50.0); LYMPHOCYTES 21.8 % (24-44); MCH 32.9 (27-36); MCHC 34.6 g/dl (30-36); MONOCYTES 6.9 % (0-12); NEUTROPHILS 67.1 % (39-80); PLATELET COUNT 207 K/uL (140-440); RBC 3.66 M/ul (4.3-5.7); RDW 13.6 (10.5-15.0)
--- NOTE | 2024-11-16 06:27 | NUR ---
SAWANT CATHETER PLACED, PATIENT TOLERATED WELL. PRN PAIN MEDICATION ADMINISTERED PRIOR TO INSERTION OF SAWANT CATHETER, NC REMAINS IN PLACE AT 2L. IV FLUIDS CONTINUING TO INFUSE PER ORDER.
--- NOTE | 2024-11-16 06:27 | NUR ---
PATIENT OFF MS FLOOR WITH SURGERY NURSE.
[2024-11-16 06:29] LABS: ANION GAP 11.6 (7-21); BUN/CREATININE RATIO 25.97 (6.0-28.6); CALCIUM 8.7 mg/dL (8.5-10.1); CREATININE, SERUM 0.77 mg/dL (0.55-1.02); POTASSIUM 3.6 mmol/L (3.5-5.1)
[2024-11-16] MEDS ORDERED: propofoL 200 MG/20 ML VIAL ONE (06:48)
[2024-11-16] MEDS ORDERED: ondansetron HCL 4 MG/2 ML VIAL ONE ×2 (06:48→06:49)
[2024-11-16] MEDS ORDERED: LIDOCAINE HCL 2% 5 ML SDV ONE ×2 (06:48→06:49)
[2024-11-16] MEDS ORDERED: BUPIVACAINE 0.75% IN DEXTROSE 2 ML AMP ONE (06:49)
[2024-11-16] MEDS ORDERED: ACETAMINOPHEN 1,000 MG/100 ML VIAL ONE (06:49)
[2024-11-16] MEDS ORDERED: MORPHINE SULFATE 1 MG/ML VIAL ONE (06:49)
[2024-11-16] MEDS ORDERED: KETAMINE in NS 50 MG/5 ML SYR ONE (06:49)
[2024-11-16] MEDS ORDERED: LIDOCAINE HCL 1% 5 ML SDV SUB-Q ONE (07:00)
[2024-11-16] MEDS ORDERED: CEFAZOLIN SODIUM 2 GM/20 ML SYR IV SCH ×2 (07:00→15:00)
[2024-11-16] MEDS ORDERED: TRANEXAMIC ACID IN NACL,ISO-OS 1,000 MG/100 ML PIGGYBACK IV SCH ×2 (07:00→10:00)
[2024-11-16] MEDS ORDERED: INTRA-ARTICULAR ANALGESIC INJECTION IAARTIC ONE (07:00)
[2024-11-16] MEDS ORDERED: ACETAMINOPHEN 500 MG TAB PO SCH (07:00)
--- NOTE | 2024-11-16 07:00 | NUR ---
REPORT RECEIVED FROM JABARI COTTON AND JABARI CROCKER. PT IS OFF THE FLOOR AT THIS TIME.
[2024-11-16] MEDS ORDERED: PHENYLEPHRINE HCL 10 MG/ML VIAL ONE (07:24)
[2024-11-16] MEDS ORDERED: HYDROCODONE/ACETA 7.5/325 TAB PO PRN (07:30)
[2024-11-16] MEDS ORDERED: KETOROLAC TROMETHAMINE 15 MG/ML VIAL IV PRN (07:30)
[2024-11-16] MEDS ORDERED: DEXAMETHASONE SOD PHOS 4 MG/ML VIAL ONE (07:52)
[2024-11-16] MEDS ORDERED: NALOXONE HCL 0.4 MG SYR IV PRN (08:00)
[2024-11-16] MEDS ORDERED: PROCHLORPERAZINE EDISYLATE 10 MG/2 ML VIAL IV PRN (08:00)
[2024-11-16] MEDS ORDERED: diphenhydrAMINE HCL 50 MG/ML VIAL IV PRN (08:00)
[2024-11-16] MEDS ORDERED: ondansetron HCL 4 MG/2 ML VIAL IV PRN (08:00)
[2024-11-16] MEDS ORDERED: HYDROmorphone HCL 1 MG/ML SYR IV PRN (08:00)
--- NOTE | 2024-11-16 08:35 | NUR ---
PT REMAINS OFF THE UNIT AT THIS TIME.
[2024-11-16] MEDS ORDERED: GABAPENTIN 100 MG CAP PO SCH (09:00)
[2024-11-16 09:01] LABS: BILIRUBIN, URINE NEGATIVE (negative); BLOOD/HGB, URINE MODERATE (Negative); KETONE, URINE NEGATIVE (Negative); LEUK ESTERASE, URINE SMALL (negative); NITRITE, URINE POSITIVE (negative)
[2024-11-16 09:12] LABS: BACTERIA, URINE 3+ /hpf (negative); CASTS, URINE NONE SEEN \\lpf; COLLECTION TYPE, URINE CATH; CRYSTALS, URINE NONE SEEN (0-1+); EPITHELIAL CELLS, URINE 0 /lpf (0-1+); REFLEX CULTURE, URINE Yes (No); WHITE BLOOD CELLS, URINE >50 /HPF (0-5)
[2024-11-16] MEDS ORDERED: LEVOTHYROXINE88 MCG PO (09:42)
--- NOTE | 2024-11-16 09:50 | NUR ---
REPORT RECEIVED FROM JABARI VAZQUEZ AT THIS TIME. VITAL SIGNS TAKEN AND DOCUMENTED IN THE CHART. CPOX AT BEDSIDE WITH OXYMASK IN PLACE. PATIENT DROWSY AND FALLING ASLEEP. PATIENT WITH NO COMPLAINTS OF PAIN. CALL LIGHT AND PERSONAL BELONGINGS ARE WITHIN REACH.
--- NOTE | 2024-11-16 10:11 | NUR ---
VISITED DURING SPIRITUAL CARE ROUNDS. PT IN OVERALL GOOD SPIRITS; NO IMMEDIATE NEEDS. BED SETTER PROVIDED SUPPORTIVE PRESENCE, HOSPITALITY, PRAYER. PT EXPRESSED GRATITUDE, TALKED OF FAMILY CONNECTION SOURCE OF STRENGTH.
--- NOTE | 2024-11-16 10:16 | NUR ---
YASMEEN FROM SOCIAL WORK IN VISITING PT.
--- NOTE | 2024-11-16 10:24 | NUR ---
11/16/24 1024 Laurence Urias 0830 PT ARRIVED IN PACU SLEEPY. BP LOW. REPOSITIONED BP CUFF WITH NO CHANGE IN BP. 0835 ANESTHESIA AT BEDSIDE AND AWARE OF DECREASED BP. 0840 PHENYLEPHRINE GIVEN IV BY ANESTHESIA. 0845 BP INCREASED. O2 SATS DROPPED TO 85% ON 4L VIA NC. ENCOURAGED COUGH, DEEP BREATHING. SATS INCREASED TO 94%. PT HAD A RUN OF SVT DURING THIS TIME. ANESTHESIA AT BEDSIDE WITH NO NEW ORDERS. 0847 UA SENT TO LAB. 0850 O2 CHANGED TO OM AND INCREASED TO 10L. ENCOURAGED PT TO COUGH, DEEP BREATH. 0900 OM DECREASED TO 6L. 0902 BP LOW. PHENYLEPHRINE 100MCG GIVEN IV FROM VERBAL ORDERS FROM ANESTHESIA. 0905 BP INCREASED. PT RESTING. ICE PLACED ON R HIP PER DR ORDERS. 0915 OM DECREASED TO 3L. 0930 ANESTHESIA AT BEDSIDE CHECKING ON PT. BP STABILIZED AFTER LAST DOSE OF IV MEDICATION AT 0902. 0951 TO ROOM 110 VIA STRETCHER. BED PLUGGED IN AND REPORT GIVEN TO RN.
--- NOTE | 2024-11-16 10:26 | NUR ---
ALERT AND ORIENTED IN BED. PATIENT STATES SHE LIVES IN HOUSE WITH STAIRS. SHE HAS A WALKER AND CANE. SHE DRIVES AT BASELINE. DENIES ANY FINANCIAL DIFFICULTIES PAYING UTILITIES OR OBTAINING FOOD AND MEDICATIONS. PATIENT WILL NEED PLACEMENT IN SNF AT DISCHARGE. STATES SHE PREFERS A FACILITY IN [place], [place], BECAUSE HER FAMILY MEMBERS LIVE IN [place]. PATIENT CHOICES PROVIDED TO PATIENT WELL MEDICARE CARE SITE TO REVIEW RATINGS OF FACILITIES. PATIENT VERBALIZES UNDERSTANDING REGARDING NEED FOR LIST OF 3 FACILITIES. STATES SHE WILL REVIEW AND LET STAFF KNOW FACILITIES OF CHOICE THIS AFTERNOON.
--- NOTE | 2024-11-16 10:58 | NUR ---
MEDICATION ADMINISTERED, SEE MAR. ASSESSMENT COMPLETE. PT RESTING IN BED WITH HOB ELEVATED, CONVERSING WITH THIS RN AND WITH HER FRIEND. PT HAS NO COMPLAINTS OF PAIN AT THIS TIME. PT IS DRINKING WATER AND COFFEE, TOLERATING WELL. DRESSING TO R HIP IS C/D/I, NO SHADOWING, WARMTH, OR REDNESS NOTED. PT CAN WIGGLE TOES IN BILAT FEET AND LIFT BOTH LEGS. PEDAL PULSES ARE 2+ AND STRONG IN BOTH FEET. PT REPORTS NO NUMBNESS OR TINGLING. RADIAL PULSE TO L WRIST IS 2+ AND STRONG, UNABLE TO ASSESS RADIAL PULSE IN R WRIST D/T WRIST BRACE BUT R FINGERS HAVE BRISK CAPILLARY REFILL LESS THAN 3 SECONDS. PT REMAINS ON OXYMASK AT 3L, CPOX IN PLACE. PTs SPO2 SUSTAINS>92% LONG PT LEAVES MASK ON. PT MOVES MASK ASIDE TO DRINK AND FORGETS TO REPLACE FREQUENTLY. PT LUNG SOUNDS ARE CLEAR THROUGHOUT, BUT TIGHT. PT DENIES SHORTNESS OF BREATH. PT EATS A COUPLE BITES OF APPLESAUCE AND SALTINE CRACKERS. TOLERATES WELL. PTs VISITOR LEAVES, PT RESTING IN BED WITH HOB ELEVATED, RR EVEN AND UNLABORED. NO OTHER REQUESTS AT THIS TIME, CALL LIGHT IN REACH.
--- NOTE | 2024-11-16 11:51 | NUR ---
UR CLINICAL REVIEW: 2 MN FOR VERSALUS-PER DECORATOR HAND MEET INPT FOR PAIN CONTROL DUE TO HIP FRACTURE/REPAIR MEDICARE INPT 11/15/24 @8852 ORDER MATCHES REG NO AUTH REQUIRED PER MEDICARE GUIDELINES ANTICIPATE DC TO SNF PER
--- NOTE | 2024-11-16 11:51 | NUR ---
PHYSICAL THERAPY IN WITH PT AT THIS TIME.
--- NOTE | 2024-11-16 13:37 | NUR ---
SPOKE WITH PATIENT ABOUT SNF. STATES SHE WOULD PREFER TO GO TO [facility] IN [place]. CALLED FACILITY FOR FAX NUMBER TO SEND REFERRAL. REFERRAL FOR SNF FAXED TO [facility] FAX [phone]
[2024-11-16] MEDS ORDERED: SODIUM CHLORIDE 0.9% 1,000 ML IV SCH (13:45)
--- NOTE | 2024-11-16 14:04 | NUR ---
RECEIVED CALL FROM [facility]. THEY CAN ACCEPT PATIENT THURSDAY AT 1100. WILL PLAN FOR DC FROM HOSPITAL THURSDAY AT 1000. WILL DISCUSS TRANSPORT WITH PATIENT.
--- NOTE | 2024-11-16 14:12 | NUR ---
PT UP IN RECLINER RESTING WITH BLE ELEVATED. IVF STARTED, INFUSING WNL. PT ALERT AND ORIENTED, CONVERSING PLEASANTLY WITH THIS RN. 3LNC IN PLACE, CPOX AT CHAIRSIDE. NO OTHER REQUESTS, CALL LIGHT IN REACH.
--- NOTE | 2024-11-16 14:16 | NUR ---
PATIENT AND DR. CHAVEZ NOTIFIED OF ACCEPTANCE TO [facility]. PATIENT STATES SHE HAS FAMILY WHO CAN PROVIDE TRANSPORT TO FACILITY. INFORMED HER DC TIME FROM FACILITY WOULD NEED TO BE AROUND 9:30 AM ON THURSDAY. VERBALIZES UNDERSTANDING.
[2024-11-16] MEDS ORDERED: CLARITIN10 MG PO (14:43)
--- NOTE | 2024-11-16 14:43 | NUR ---
MED REC COMPLETE
--- NOTE | 2024-11-16 15:34 | NUR ---
MEDICATION ADMINISTERED, SEE MAR. PT UP IN RECLINER WITH BLE ELEVATED PLAYING ON HER PHONE. PT REPORTS NO PAIN. IV TO L AC FLUSHES WNL, IVF INFUSING WNL. DRESSING TO PTs R HIP REMAINS C/D/I, UNCHANGED FROM WHEN SHE RETURNED FROM SURGERY. MD ARRIVES TO ASSESS PT. ALL PT QUESTIONS AND CONCERNS ANSWERED AND ADDRESSED. MD LEAVES. CPOX AT CHAIRSIDE NOTED TO SUSTAIN>98% ON 3LNC. PTs OXYGEN TITRATED TO 1LNC. PTs OXYGEN SUSTAINS>98%. CPOX AT CHAIRSIDE. PT HAS VISITOR ARRIVE. NO REQUESTS, CALL LIGHT IN REACH.
--- NOTE | 2024-11-16 16:34 | NUR ---
PTs O2 HAS SUSTAINED>96% ON 1L, PT OXYGEN TITRATED TO ROOM AIR. PTs O2 SUSTAINS>96% ON RA. PT AMBULATES WITH FWW AND SBA THREE DOORWAYS, TURNS AROUND, AND AMBULATES BACK. PT BACK TO HER RECLINER AND SITS WITH BLE ELEVATED, SAWANT CATH DRAINING FREELY. PT DENIES FEELING LIGHTHEADED OR DIZZINESS, TOLERATES THE WALK WELL. PT BLOOD PRESSURE RE-ASSESSED WHEN BACK IN RECLINER. BP NOW 123/60(77). PT REPORTS SHE IS FEELING GOOD. NO REQUESTS, CALL LIGHT IN REACH.
--- NOTE | 2024-11-16 16:35 | NUR ---
PATIENT AMBULATED WITH JABARI DAILY. RETURNED TO SITTING UP IN THEIR CHAIR. CALL LIGHT AND PERSONAL ITEMS WITHIN REACH.
--- NOTE | 2024-11-16 18:12 | NUR ---
PT SITTING UP IN RECLINER, DINNER TRAY FINISHED, SPEAKING ON HER PHONE. PT IS REQUESTING A VEGETARIAN DIET MOVING FORWARD. NO OTHER REQUESTS, CALL LIGHT IN REACH.
--- NOTE | 2024-11-16 18:31 | NUR ---
2 VISITORS ARRIVE TO SEE PT AT THIS TIME. PT REMAINS UP IN RECLINER, NO REQUESTS, CALL LIGHT IN REACH.
--- NOTE | 2024-11-16 19:15 | NUR ---
REPORT RECEIVED FROM DAYSHIFT RN. PATIENT SITTING IN CHAIR VISITING WITH FAMILY, NO NEEDS IDENTIFIED, CALL LIGHT IN REACH.
[2024-11-16] MEDS ORDERED: CEFDINIR 300 MG CAP PO SCH (21:00)
[2024-11-16] MEDS ORDERED: SENNOSIDES 1 TAB PO SCH (21:00)
[2024-11-16] MEDS ORDERED: MAGNESIUM HYDROXIDE 30 ML UDC PO SCH (21:00)
--- NOTE | 2024-11-16 21:24 | NUR ---
VS OBTAINED AND RECORDED. SCHEDULED MEDICATIONS ADMINISTERED PER ORDER. IV FLUIDS CONTINUING TO INFUSE PER ORDER. PATIENT AMBULATED WELL WITH USE OF FWW FROM CHAIR TO BED. ASSESSMENT COMPLETE. PATIENT DENIES ANY NEEDS, CALL LIGHT IN REACH.
--- NOTE | 2024-11-16 23:06 | NUR ---
PATIENT RESTING IN BED, WATCHING TV AND SCROLLING ON PHONE. DENIES ANY NEEDS AND ANY PAIN AT THIS TIME. CALL LIGHT IN REACH.
--- NOTE | 2024-11-16 23:41 | NUR ---
SCHEDULED MEDICATIONS ADMIN PER ORDER. IV FLUIDS CONTINUING TO INFUSE PER ORDER. PATIENT AWAKE AND WATCHING TV, DENIES ANY NEEDS AT THIS TIME.
[2024-11-17] VITALS (11 sets, daily range): BP systolic 99–122; BP diastolic 52–69
--- NOTE | 2024-11-17 01:37 | NUR ---
VS OBTAINED AND RECORDED. SAWANT CATHETER EMPTIED. PATIENT DENIES ANY PAIN OR ANY NEEDS AT THIS TIME. CALL LIGHT IN REACH.
--- NOTE | 2024-11-17 01:51 | NUR ---
PULSE OX MONITOR REPLACED ON FINGER. PATIENT DENIES ANY NEEDS, CALL LIGHT IN REACH.
--- NOTE | 2024-11-17 03:38 | NUR ---
PATIENT RESTING COMFORTABLY IN BED, WOKE TO RN ENTERING ROOM. CPOX IN PLACE, MADDY HOSE IN PLACE. DRESSING ON R HIP REMAINS C/D/I. PATIENT REPORTS NO PAIN. ARYAN-CARE COMPLETED. PATIENT DENIES FURTHER NEEDS, CALL LIGHT IN REACH.
--- NOTE | 2024-11-17 05:41 | NUR ---
UTILITY WORKER DRIVER OBTAINED VITALS AND I&O. PT STATES NO NEEDS AT THIS TIME. CALL LIGHT WITHIN REACH.
[2024-11-17 05:59] LABS: BASOPHILS 0.1 % (0-2); EOSINOPHILS 0.9 % (0-6); HEMATOCRIT 28.4 % (35.0-50.0); HEMOGLOBIN 9.7 g/dL (12.0-18.0); LYMPHOCYTES 17.6 % (24-44); MCH 32.4 (27-36); MCHC 34.3 g/dl (30-36); MCV 94.5 fl (81-99); MONOCYTES 6.4 % (0-12); PLATELET COUNT 173 K/uL (140-440); RDW 13.4 (10.5-15.0)
[2024-11-17] MEDS ORDERED: LEVOTHYROXINE SODIUM 88 MCG TAB PO SCH (06:00)
--- NOTE | 2024-11-17 06:09 | NUR ---
CPOX ALARMING, SPO2 83%, 2L OXYGEN BY NC APPLIED, SPO2 INCREASES TO 92%. pt WAS SLEEPING, AWAKENS EASILY TO VOICE. DENIES NEEDS. PRIMARY RN UPDATED.
[2024-11-17 06:19] LABS: ALBUMIN 2.2 g/dL (3.4-5.0); ALBUMIN/GLOBULIN RATIO 0.69 (1.1-2.4); ANION GAP 12.9 (7-21); BILIRUBIN, TOTAL 0.5 mg/dL (0.2-1.0); BUN/CREATININE RATIO 19.48 (6.0-28.6); CALCIUM 8.4 mg/dL (8.5-10.1); CREATININE, SERUM 0.77 mg/dL (0.55-1.02); MAGNESIUM 1.5 mg/dL (1.8-2.4); POTASSIUM 3.9 mmol/L (3.5-5.1); PROTEIN, TOTAL 5.4 g/dL (6.4-8.2)
--- NOTE | 2024-11-17 06:24 | NUR ---
CHARGE NURSE, OBI, INFORMED PRIMARY RN THAT PATIENT CPOX WAS ALARMING AT 83%. 2L NC PLACED ON PATIENT BY JABARI CROCKER. RN AT BEDSIDE, PATIENT SPO2 READING 97-99% ON 2L NC. FRESH ICE APPLIED TO RIGHT HIP, HEEL PROTECTORS IN PLACE, MADDY HOSE IN PLACE. NO FURTHER NEEDS IDENTIFIED, CALL LIGHT IN REACH.
--- NOTE | 2024-11-17 07:10 | NUR ---
REPORT RECEIVED FROM YURY RN AND JABARI CROCKER. PT RESTING IN BED AWAKE AND ALERT WHEN THIS RN ENTERS. PT IS ON RA IN BED WATCHING TELEVISION AND USING HER PHONE. STATES SHE WOULD LIKE A SHOWER TODAY. CALL LIGHT IN REACH.
--- NOTE | 2024-11-17 07:14 | OR ---
[facility] [address] [place], [place] [address] Signed DATE OF OPERATION: 11/16/2024 SURGEON: Kofi Machado MD PREOPERATIVE DIAGNOSIS: Right hip fracture, femoral neck. POSTOPERATIVE DIAGNOSIS: Right hip fracture, femoral neck. PROCEDURE PERFORMED: Right bipolar hemiarthroplasty. PORTABLE CANTEEN OPERATOR: None. ANESTHESIA: Spinal. BLOOD LOSS: 175 mL. IMPLANTS: Darron Echo FX size 11 stem with a -3 head and a 46 bipolar. BRIEF HISTORY: Charo is a 78-year-old female with a ground level fall yesterday afternoon. Radiographs showed a displaced Garden 4 hip fracture. Risks, benefits, and alternatives of surgery were discussed with her and she understood and wished to proceed. She was cleared by the Medicine Service. DESCRIPTION OF PROCEDURE: Once consent was obtained, she was taken to the operating room. After adequate anesthesia she was placed on the operating room table. All downside pressure points were well padded and she was placed in the left lateral decubitus position. The hip was prepped and draped in a standard usual fashion. The hip was approached through a 4 inch incision centered over the trochanter, taken through the skin and subcutaneous tissue. The IT band was divided longitudinally and the vastus lateralis was divided from the tip of the trochanter along the anterior margin of the femur distally. This was then subperiosteally elevated around to the level of the lesser trochanter. The gluteus Electronically Signed By: KOFI MACHADO MD 11/17/24 0714 PATIENT NAME: CHARO HERNANDEZ OPERATIVE REPORT DATE OF : 43 REPORT #: [id number] PHYSICIAN: KOFI MACHADO MD PCP: NATI WHITING MD REPORT IS CONFIDENTIAL AND NOT TO BE RELEASED WITHOUT AUTHORIZATION [facility] [address] [place], [place] [address] Signed medius and capsule were split from the tip of the trochanter to the acetabular rim and peeled off the femoral neck. The fracture was essentially subcapital, so femoral neck cut was made one fingerbreadth above the lesser trochanter. The bony fragments were then removed as was the femoral head. This was taken to the back table and sized. The 46 trial was then placed in the acetabulum and found to seat well. Attention was then turned to the proximal femur which was opened using cookie cutter, followed by the pointed awl. This was then sequentially reamed initially up to a 9 and then to 11, was then sequentially broached up to an 11, which was found to be well fitting. The 11 stem was then obtained and impacted until it was well seated on the femoral neck cut. The hip was then trialed with a -3 and a 46 bipolar. The leg lengths were found to be equal. She had excellent range of motion. No impingement. The hip was dislocated. The trials were removed and the final bipolar construct was impacted onto the trunnion of the stem after cleansing it well. The hip was again reduced, taken through range of motion and found to be stable. The wound was then copiously irrigated with Surgiphor followed by normal saline. Periarticular soft tissues were injected with 60 mL of 0.25% Marcaine with epinephrine. The capsule was then closed using #2 FiberWire. The vastus and IT band layers were closed. She did have pretty much bald trochanter, so the abductors and proximal vastus were repaired back to the trochanter through drill holes using #2 FiberWire. The IT band layer was closed and the subcu was closed with 0 Stratafix. The skin was stapled. The wound was cleansed and dressed with an Acticoat-7 dressing. She was awakened, taken to the recovery room in satisfactory condition. All sponge, needle, and instrument counts were correct. Kofi Machado MD BA/MODL /[id number] Copies: ~ Electronically Signed By: KOFI MACHADO MD 11/17/24 0714 PATIENT NAME: CHARO HERNANDEZ OPERATIVE REPORT DATE OF : 43 REPORT #: [id number] PHYSICIAN: KOFI MACHADO MD PCP: NATI WHITING MD REPORT IS CONFIDENTIAL AND NOT TO BE RELEASED WITHOUT AUTHORIZATION
[2024-11-17] MEDS ORDERED: MAGNESIUM SULFATE 2 GM/50 ML BAG IV SCH (09:00)
[2024-11-17] MEDS ORDERED: PANTOPRAZOLE SODIUM 40 MG TABEC PO SCH (09:00)
--- NOTE | 2024-11-17 09:02 | NUR ---
PATIENT WAS IN BED AT THIS TIME, CTE TEACHER ASSISTED HER TO HER CHAIR FOR BREAKFAST. OFFERED A WASH CLOTH TO WASH FACE. CLEANED ROOM, CALL LIGHT WITH IN REACH, AND NOTHING ELSE NEEDED AT THIS TIME.
--- NOTE | 2024-11-17 09:21 | NUR ---
MEDICATION ADMINISTERED, SEE MAR. ASSESSMENT COMPLETE. PT RESTING UP IN RECLINER WITH BLE ELEVATED. PT IS IRRITABLE REGARDING TIMING OF MEDICATION AND CNAs STATED TIMING OF SHOWER TODAY. PTs SPEECH IS RAPID. CPOX IN PLACE AT CHAIRSIDE. PTs SPO2 SUSTAINS<90% WHILE PT IS SPEAKING RAPIDLY. PT ENCOURAGED TO PAUSE AND TAKE SOME DEEP BREATHS. SPO2 SUSTAINS>93% WITH DEEP BREATHING EXERCISES. PT EDUCATED ON AND ENCOURAGED TO USE INCENTIVE SPIROMETER. PT STATES SHE HAS NEVER BEEN ABLE TO "MOVE THE BALL WITH THESE THINGS", DEMONSTRATED IS USE UP TO 2500ML X10. PT PRAISED FOR HER EFFORTS AND ENCOURAGED TO USE 10X AN HOUR. PT VERBALIZES UNDERSTANDING. PTs SPO2 SUSTAINS>98% AFTER USE. PT CONTINUES TO STATE FEELING STRESSED REGARDING HER SHOWER. PTs DRESSING TO R HIP IS C/D/I, NO SHADOWING, REDNESS, OR HEAT NOTED. PT HAS ICE PACK TO R HIP. PT HAS STRONG PEDAL PULSES WITH NO COMPLAINTS OF PAIN, DISCOMFORT, NUMBNESS, OR TINGLING. IVF AND IV MEDICATIONS INFUSING WNL. PT HAS NO OTHER REQUESTS AT THIS TIME, CALL LIGHT IN REACH.
--- NOTE | 2024-11-17 09:30 | NUR ---
MD CHAVEZ NOTIFIED OF PT REQUEST TO REMOVE SAWANT CATHETER, GIVES VERBAL ORDER TO REMOVE AT THIS TIME.
--- NOTE | 2024-11-17 09:37 | NUR ---
PATIENT IN CHAIR AT THIS TIME. THIS RETAIL LOSS PREVENTION INVESTIGATOR REMOVED PATIENTS SAWANT CATHETER PER RN ABIMBOLA'S REQUEST. CALL LIGHT WITHIN REACH, NO FURTHER NEEDS AT THIS TIME.
--- NOTE | 2024-11-17 09:59 | NUR ---
PATIENT IS JUST GETTING OUT OF THE SHOWER AT THIS TIME. PT ASSISTED IN A SHOWER, BRUSHED HER TEETH AND HAIR. SCOUT PROFESSIONAL SPORTS CHARTED VITALS AND I&0'S, CALL LIGHT WITH IN REACH AND NOTHING ELSE NEEDED AT THIS TIME.
[2024-11-17] MEDS ORDERED: IBUPROFEN 600 MG TAB PO PRN (10:30)
--- NOTE | 2024-11-17 10:45 | NUR ---
IV PUMPING ALARMING, MAGNESIUM COMPLETE, NEW BAG OF IV FLUIDS HUNG, ALONG WITH 2ND DOSE OF MAGNESIUM - SEE MAR. PT STATES HER CPOX HAS BEEN ALARMING WELL, SHE IS SILENCING, SATS REMAIN 97% ON RA. PULSE OX PROBE CHANGED PER HER REQUEST, CPOX RESET. PT ARRIVED IN THE ROOM TO WORK WITH PATIENT. PT DENIES ANY FURTHER NEEDS AT THIS TIME.
--- NOTE | 2024-11-17 10:47 | NUR ---
STATES FAMILY IS GOING TO PACK HER BELONGINGS AND LIKELY PICK HER UP AROUND [address] CHAVEZ AWARE OF DC PLAN. PATIENT STATES SHE HAS NO OTHER CM NEEDS AT THIS TIME. PLANS TO GO TO [facility] TOMORROW FOR SNF.
--- NOTE | 2024-11-17 11:12 | NUR ---
PT ARRIVED AT NURSES STATION, PT REQUESTING SOMETHING FOR PAIN, "NOT ANYTHING TOO STRONG". ARRIVED IN ROOM TO PROVIDE PT OPTIONS, REPORTS PAIN 4/10, PRN MEDS GIVEN - SEE MAR. PT HAS ICE PACK IN PLACE, INFORMED PT IF PAIN IS NOT RESOLVED WE CAN RE-EVALUATE FOR SOMETHING STRONGER. PT VERBALIZED UNDERSTANDING AND AGREES. ALL PT CARE NEEDS MET, CALL LIGHT WITHIN REACH.
--- NOTE | 2024-11-17 13:00 | NUR ---
PT IS UP IN RECLINER EATING LUNCH, STATES SHE HAS FINALLY RECEIVED ENOUGH FOOD THAT SHE CAN EAT. BLE ARE ELEVATED AND PT HAS NO REQUESTS AT THIS TIME. PT HAS VOIDED TWICE SINCE SAWANT CATH REMOVAL. IVF INFUSING TO Sharifa TAYLOR. CALL LIGHT IN REACH.
--- NOTE | 2024-11-17 14:06 | NUR ---
PATIENT WAS IN HER CHAIR AT THIS TIME, NEEDED SOME RR ASSISTANCE THEN BACK TO HER CHAIR. IV WAS BEEPING, RN NOTIFIED. NEUROSURGERY RESEARCH DIRECTOR CHARTED VITALS AND I&O'S, CALL LIGHT WITH IN REACH AND NOTHING ELSE NEEDED AT THIS TIME.
--- NOTE | 2024-11-17 15:33 | NUR ---
PATIENT IN BED AT THIS TIME. NAPPER RUNNER ASSISTED PATIENT TO BATHROOM AND THEN BACK TO CHAIR. CALL LIGHT WITHIN REACH, NO FURTHER NEEDS.
--- NOTE | 2024-11-17 15:34 | NUR ---
TAKING OFF RT SERVICE. PLEASE CALL WITH CONCERNS OR O2 USE.
--- NOTE | 2024-11-17 16:21 | NUR ---
PATIENT IN BED AT THIS TIME. CLIENT SUPPORT COORDINATOR ASSISTED PATIENT TO BATHROOM AND THEN BACK TO BED. BED ALARMS SET, CALL LIGHT WITHIN REACH, NO FURTHER NEEDS AT THIS TIME.
--- NOTE | 2024-11-17 16:50 | NUR ---
PT RESTING IN RECLINER WITH BLE ELEVATED, EYES CLOSED, RR EVEN AND UNLABORED WITH MOUTH OPEN. PT WAKES TO VOICE AND STATES "I'M GLAD YOU SHOWED UP, I HAVE TO PEE!" PT AMBULATES WITH SBA AND FWW TO RESTROOM. SMALL AMOUNT OF INCONTINENCE NOTED TO PULL-UP. FRESH PULL-UP PROVIDED. PT VOIDS, PROVIDES HER OWN ARYAN-CARE, AND WASHES HER HANDS INDEPENDENTLY. PT AMBULATES LONG LAP AROUND NURSE'S STATION IN [place]. PT TOLERATES WALK WELL, REPORTS R HIP IS A 1/10 WITH AMBULATION AND 0/10 WHEN SHE IS RESTING. PT BACK TO RECLINER, BLE ELEVATED. ADHESIVE SURGICAL DRESSING TO R HIP REMAINS C/D/I AND UNCHANGED FROM THIS MORNING. IV IN L AC FLUSHES WNL, IVF INFUSING WNL. SCDs IN PLACE. PT REQUESTING COFFEE - PROVIDED. NO OTHER REQUESTS, CALL LIGHT IN REACH.
--- NOTE | 2024-11-17 18:23 | NUR ---
PATIENT IS IN HER CHAIR AT THIS TIME, ADOLESCENT MEDICINE SPECIALIST CHARTED VITALS AND I&O'S. CALL LIGHT WITH IN REACH AND NOTHING ELSE NEEDED AT THIS ITME.
--- NOTE | 2024-11-17 18:24 | NUR ---
ANDRE CANO PRESENT IN ROOM AT THIS TIME.
--- NOTE | 2024-11-17 19:30 | NUR ---
REPORT RECIEVED FROM DAY SHIFT RN. PATIENT RESTING CHAIR WITH EYES CLOSED. RESPIRATIONS EVEN AND UNLABORED. CALL LIGHT IN REACH.
--- NOTE | 2024-11-17 19:57 | NUR ---
PRN PAIN MEDICATION GIVEN-SEE EMAR. pt REPORTS PAIN TO RIGHT HIP/THIGH AREA-01/14. FRESH WATER PROVIDED AND I&O'S COLLECTED. VSS, pt HAS IS IN REACH ALONG WITH OTHER PERSONAL BELONGINS. CALL LIGHT IN REACH ALSO. NO ADDITIOANL NEEDS OR CONCERNS VERBALIZED.
--- NOTE | 2024-11-17 20:59 | NUR ---
CALL LIGHT ANSWERED. PT NEEDED TO USE BATHROOM. SERVICES DELIVERY DRIVER SBA TO BATHROOM. PT VOIDED AND ASSISTED BACK TO BED. HELL PROTECTORS AND SCDS BACK ON. PT STATES NO FURTHER NEEDS AT THIS TIME. CALL LIGHT WITHIN REACH.
--- NOTE | 2024-11-17 21:22 | NUR ---
PATIENT RESTING IN BED. SCHEDULED MEDICATION ADMINISTERED. ASSESSMENT COMPLETE. ICE PACK PLACED TO RIGHT HIP WITH LINEN BARRIER PLACED. HEEL PROTECTORS IN PLACE. PATIENT HAS NO FURTHER NEEDS AT THIS TIME. CALL LIGHT IN REACH.
--- NOTE | 2024-11-17 23:19 | NUR ---
PATIENT RESTING IN BED PLAYING ON PHONE. PATIENT STATES "I AM DOING GOOD!" PATIENT HAS NO FURTHER NEEDS AT THIS TIME.
--- NOTE | 2024-11-18 | NUR ---
CALL LIGHT ANSWERED. PT NEEDED TO USE BATHROOM. ORACLE APEX DEVELOPER 1PA WITH FWW TO BATHROOM. PT VOIDED AND ASSISTED BACK TO BED. SCDS AND HEEL PROTECTORS PLACED AND PT STATES NO FURTHER NEEDS AT THIS TIME. CALL LIGHT WITHIN REACH.
--- NOTE | 2024-11-18 02:12 | NUR ---
PATIENT RESTING IN BED WITH EYES CLOSED. RESPIRATIONS EVEN AND UNLABORED. CALL LIGHT IN REACH.
[2024-11-18 05:00] VITALS: BP 127/71
[2024-11-18 05:02] VITALS: BP 127/71
--- NOTE | 2024-11-18 05:04 | NUR ---
PATIENT RESTING IN BED. KIMBER Bowden RN, OBTAINING VS. R HIP DRESSING C/D/I. ICE PACK IN PLACE WITH LINEN BARRIER IN PLACE. HEEL PROTECTORS IN PLACE. NO FURTHER NEEDS AT THIS TIME. CALL LIGHT IN REACH.
--- NOTE | 2024-11-18 05:07 | NUR ---
SCHEDULED MEDICATION ADMINISTERED. NO FURTHER NEEDS. CALL LIGHT IN REACH.
[2024-11-18 05:27] LABS: BASOPHILS 0.5 % (0-2); EOSINOPHILS 5.2 % (0-6); HEMATOCRIT 27.8 % (35.0-50.0); HEMOGLOBIN 9.7 g/dL (12.0-18.0); LYMPHOCYTES 25.8 % (24-44); MCHC 34.9 g/dl (30-36); MCV 94.6 fl (81-99); MONOCYTES 6.6 % (0-12); NEUTROPHILS 61.9 % (39-80); PLATELET COUNT 190 K/uL (140-440); RBC 2.94 M/ul (4.3-5.7); RDW 13.6 (10.5-15.0)
[2024-11-18 05:42] LABS: ALBUMIN 2.3 g/dL (3.4-5.0); ALBUMIN/GLOBULIN RATIO 0.68 (1.1-2.4); ANION GAP 10.8 (7-21); BILIRUBIN, TOTAL 0.8 mg/dL (0.2-1.0); BUN/CREATININE RATIO 14.08 (6.0-28.6); CALCIUM 8.3 mg/dL (8.5-10.1); CREATININE, SERUM 0.71 mg/dL (0.55-1.02); POTASSIUM 3.8 mmol/L (3.5-5.1); PROTEIN, TOTAL 5.7 g/dL (6.4-8.2)
--- NOTE | 2024-11-18 07:18 | NUR ---
REPORT RECEIVED FROM JABARI COTTON. PT BEING ASSISTED TO RESTROOM BY ANDRE BLEVINS. PT IS STATING THAT SHE NEEDS TO GET DRESSED BECAUSE HER FAMILY WILL BE ARRIVING AT 0730 AND SHE IS LEAVING IMMEDIATELY AT 0730. DISCUSSED WITH PT THAT STAFF WERE INFORMED HER FAMILY WOULD BE HERE AT 0900 AND ALL CHARTING ALSO REFLECTED THIS. THIS RN APOLOGIZES FOR ANY MISCOMMUNICATIONS. PT UNHAPPY, NOT AGREEABLE TO PLAN. PT UP IN RECLINER AT THIS TIME, SCDs REMOVED, COMPRESSION STOCKINGS IN PLACE. CALL LIGHT AND PERSONAL BELONGINGS IN REACH.
--- NOTE | 2024-11-18 08:02 | NUR ---
MEDICATION ADMINISTERED, SEE NOV. ASSESSMENT COMPLETE. PT UP IN RECLINER SPEAKING ON HER CELL PHONE. PT HAS SPOKEN WITH FAMILY WHO ARE PACKING THINGS FOR HER AT HER HOUSE WITH HER GUIDANCE. PT AGREEABLE TO FAMILY COMING AT 0900 TO PICK HER UP NOW. DRESSING TO R HIP REMAINS CLEAN, DRY, AND INTACT. SMALL AMOUNT OF GENERALIZED EDEMA TO R HIP, 2+ PEDAL PULSES BILATERALLY. PT REPORTS NO PAIN AT THIS TIME, ICE PACK IN PLACE. PT DECLINES CURRENT USE OF SCDs OR HEEL PROTECTORS BUT DOES HAD COMPRESSION STOCKINGS IN PLACE. IV TO L AC INFUSING IVF WNL AND FLUSHES WNL. BREAKFAST TRAY ARRIVES. PT CONTINUES SPEAKING ON PHONE WITH FAMILY MEMBER, SHE HAS NO REQUESTS, CALL LIGHT AND PERSONAL BELONGINGS IN REACH.
[2024-11-18] MEDS ORDERED: GABAPENTIN100 MG PO (08:04)
[2024-11-18] MEDS ORDERED: HYDROCODON-ACE1 EA11 PO (08:04)
--- NOTE | 2024-11-18 08:20 | NUR ---
PATIENT IN BED AT THIS TIME. STOGIE PACKER ASSISTED PATIENT TO BATHROOM AND THEN BACK TO HER CHAIR. CALL LIGHT WITHIN REACH, NO FURTHER NEEDS AT THIS TIME.
--- NOTE | 2024-11-18 08:27 | NUR ---
FAXED SCRIP TO [facility]. COPIES OF DISCHARGE TO MEDICAL RECORDS. PACKET GIVEN TO STONE SANDBLASTER. NO FUTHER CM NEEDS AT THIS TIME.
--- NOTE | 2024-11-18 08:59 | NUR ---
PATIENT WAS IN HER CHAIR AT THIS TIME, SHE NEEDED ASSISTANCE TO THE RESTROOM, GETTING DRESSED AND GETTING THINGS TOGETHER TO GO HOME. PROFESSOR OF ARCHITECTURE CHARTED I&O'S AND WILL CHART VITALS RIGHT BEFORE SHE IS LEAVING.
--- NOTE | 2024-11-18 09:29 | NUR ---
SCANNED AND FAXED ORDERS AGAIN TO FACILITY. PATIENT DRESSED IN BED READY FOR FAMILY TO GET HER AND TAKE HER TO SNF.
[2024-11-18 09:30] VITALS: BP 143/59
--- NOTE | 2024-11-18 11:11 | NUR ---
REPORT GIVEN TO JABARI BERUMEN AT [facility]. ALL QUESTIONS ANSWERED.
== END 2024-11-18 09:30 | DRG 522 ==
LOC: ED 13:56 → MS 17:08
PROVIDERS: Emergency Medicine; Family Medicine; ADMIT Specialist; ATTEND Specialist
PROC: 0SRR0JZ Replacement of Right Hip Joint, Femoral Surface with Synthetic Substitute, Open Approach (ICD-10-PCS; principal; 2024-11-16 07:30)
DX: S72.001A Fracture of unspecified part of neck of right femur, initial encounter for closed fracture (principal); S52.91XA Unspecified fracture of right forearm, initial encounter for closed fracture; N39.0 Urinary tract infection, site not specified; I10 Essential (primary) hypertension; M81.0 Age-related osteoporosis without current pathological fracture; I95.81 Postprocedural hypotension; M19.90 Unspecified osteoarthritis, unspecified site; I25.10 Atherosclerotic heart disease of native coronary artery without angina pectoris; S83.91XA Sprain of unspecified site of right knee, initial encounter; E03.9 Hypothyroidism, unspecified; E78.5 Hyperlipidemia, unspecified; Z96.651 Presence of right artificial knee joint; Z98.890 Other specified postprocedural states; Z90.89 Acquired absence of other organs; Z88.2 Allergy status to sulfonamides; Z88.5 Allergy status to narcotic agent; Z79.890 Hormone replacement therapy; Z79.899 Other long term (current) drug therapy; W10.1XXA Fall (on)(from) sidewalk curb, initial encounter
CPT/HCPCS: 01214; 36415; 51702; 51798; 72170; 73110; 73502; 80048; 80053; 81001; 83735; 85025; 85610; 87088; 93005; 93010; 94762; 97110; 97116; 97161; 97165; 97535; 99285; A9270; C1776; J0131; J0690; J1100; J1171; J2003; J2274; J2371; J2405; J2704; J3475; J3490; J7030; J7121